=== PATIENT | male | born 1955 | race Caucasian/White ===

== ENCOUNTER 2019-01-18 16:56 | Inpatient (IN) | payer BC ==
[2019-01-18] MEDS ORDERED: Diltiazem 50 MG/10 ML SDV IVPUSH ONE (17:33)
[2019-01-18] MEDS ORDERED: Diltiazem 125 MG in Sodium Chloride 0.9% 100 ML IV SCH (17:45)
[2019-01-18] MEDS: Sodium Chloride 0.9% 10 ML Syringe FLUSH PRN (17:54)
--- NOTE | 2019-01-18 18:31 | EDM.PDOC ---
ED HPI GENERAL MEDICAL PROBLEM - General Chief Complaint: Cardiovascular Problem Stated Complaint: SOB CHEST PAIN AND SWELLING Time Seen by Provider: 01/18/19 17:04 Source of Information: Reports: Patient History Limitations: Reports: No Limitations - History of Present Illness INITIAL COMMENTS - FREE TEXT/NARRATIVE: The patient presents with shortness of breath, chest pain and atrial fibrillation. The patient said he noticed this start about 3 weeks ago. He has chest pain at times. He is short of breath with exertion and he has swelling in his legs. He went to the walk in clinic and they found he was in new onset A-fib and sent him down here. He is in A-fib with RVR in the 130s. He has no chest pain now. He has no fever, chills, cough, congestion, runny nose, abdominal pain, nausea or vomiting. He has no history of heart problems or atrial fibrillation. Onset: Gradual Duration: Week(s): (3) Location: Reports: Chest Quality: Reports: Ache Severity: Mild Improves with: Reports: None Worsens with: Reports: None Associated Symptoms: Reports: Chest Pain, Shortness of Breath. Denies: Cough, Fever/Chills, Headaches, Nausea/Vomiting Chest Pain Score (Numeric/FACES): 3 - Related Data Allergies Allergy/AdvReac Type Severity Reaction Status Date / Time lisinopril AdvReac Cough Verified 01/18/19 17:08 Home Meds: Home Meds Allopurinol [Zyloprim] 100 mg PO DAILY 01/18/19 [History] Furosemide 80 mg PO DAILY 01/18/19 [History] Indomethacin 50 mg PO DAILY 01/18/19 [History] Metoprolol Succinate 50 mg PO DAILY 01/18/19 [History] Spironolactone [Aldactone] 25 mg PO DAILY 01/18/19 [History] Past Medical History Cardiovascular History: Reports: Hypertension Respiratory History: Reports: Sleep Apnea Musculoskeletal History: Reports: Gout Social & Family History - Family History Family Medical History: Noncontributory - Caffeine Use Caffeine Use: Reports: Soda - Recreational Drug Use Recreational Drug Use: No ED ROS GENERAL - Review of Systems Review Of Systems: See Below Constitutional: Reports: No Symptoms HEENT: Reports: No Symptoms Respiratory: Reports: No Symptoms Cardiovascular: Reports: Chest Pain, Dyspnea on Exertion, Edema, Palpitations Endocrine: Reports: No Symptoms GI/Abdominal: Reports: No Symptoms : Reports: No Symptoms Musculoskeletal: Reports: No Symptoms ED EXAM, GENERAL - Physical Exam Exam: See Below Exam Limited By: No Limitations General Appearance: Alert, No Apparent Distress Ears: Normal External Exam Nose: Normal Inspection Head: Atraumatic, Normocephalic Neck: Normal Inspection Respiratory/Chest: No Respiratory Distress, Lungs Clear, Normal Breath Sounds Cardiovascular: No Edema, No Murmur, Irregularly Irregular GI/Abdominal: Soft, Non-Tender, No Organomegaly, No Mass Back Exam: Normal Inspection Extremities: Normal Inspection EKG INTERPRETATION EKG Date: 01/18/19 Time: 15:34 Rhythm: A-Fib Rate (Beats/Min): 110 [place]: Normal P-Wave: Absent QRS: Normal ST-T: Normal QT: Prolonged Course - Vital Signs Last Recorded V/S: Last Vital Signs Temp 98.4 F 01/18/19 17:05 Pulse 70 01/18/19 18:48 Resp 25 H 01/18/19 18:48 BP 115/70 01/18/19 18:48 Pulse Ox 96 01/18/19 18:48 - Orders/Labs/Meds Orders: Active Orders 24 hr Category Date Time Status Admission Status [Patient Status] [ADT] Routine ADT 01/18/19 18:57 Active Cardiac Monitoring [RC] . DIRECTED Care 01/18/19 17:31 Active Peripheral IV Care [RC] . DIRECTED Care 01/18/19 17:33 Active Chest 1V Frontal [CR] Stat Exams 01/18/19 17:33 Taken T4 FREE [CHEM] Stat Lab 01/18/19 19:28 Ordered Diltiazem 125 mg Med 01/18/19 17:45 Active Sodium Chloride 0.9% [Normal Saline] 100 ml IV TITRATE Sodium Chloride 0.9% [Saline Flush] Med 01/18/19 17:31 Active 10 ml FLUSH ASDIRECTED PRN Peripheral IV Insertion Adult [OM.PC] Stat Oth 01/18/19 17:31 Ordered Medication Orders Diltiazem HCl 125 mg/ Sodium (Chloride) 125 mls @ 10 mls/hr IV TITRATE HAL; Protocol Last Titration: 01/18/19 18:34 Dose: 5 mg/hr, 5 mls/hr Admin: 01/18/19 17:54 Dose: 10 mg/hr, 10 mls/hr Sodium Chloride (Saline Flush) 10 ml FLUSH ASDIRECTED PRN PRN Reason: Keep Vein Open Last Admin: 01/18/19 17:54 Dose: 10 ml Labs: Laboratory Tests 01/18/19 01/18/19 01/18/19 Range/Units 17:30 17:30 17:30 WBC 8.37 (4.23-9.07) K/mm3 RBC 4.07 L (4.63-6.08) M/mm3 Hgb 14.7 (13.7-17.5) gm/L Hct 43.0 (40.1-51.0) % MCV 105.7 H (79.0-92.2) fl MCH 36.1 H (25.7-32.2) pg MCHC 34.2 (32.2-35.5) g/dl RDW Std Deviation 49.4 H (35.1-43.9) fL Plt Count 214 (163-337) K/mm3 MPV 10.6 (9.4-12.3) fl Neut % (Auto) 63.7 (34.0-67.9) % Lymph % (Auto) 22.9 (21.8-53.1) % [place] % (Auto) 9.0 (5.3-12.2) % Eos % (Auto) 3.2 (0.8-7.0) Baso % (Auto) 0.8 (0.1-1.2) % Neut # (Auto) 5.33 (1.78-5.38) K/mm3 Lymph # (Auto) 1.92 (1.32-3.57) K/mm3 [place] # (Auto) 0.75 (0.30-0.82) K/mm3 Eos # (Auto) 0.27 (0.04-0.54) K/mm3 Baso # (Auto) 0.07 (0.01-0.08) K/mm3 Manual Slide Review Abnormal smear Sodium 139 (136-145) mEq/L Potassium 3.7 (3.5-5.1) mEq/L Chloride 102 (98-107) mEq/L Carbon Dioxide 26 (21-32) mEq/L Anion Gap 14.7 (5-15) BUN 14 (7-18) mg/dL Creatinine 1.0 (0.7-1.3) mg/dL Est Cr Clr Drug Dosing 82.62 mL/min Estimated GFR (MDRD) > 60 (>60) mL/min BUN/Creatinine Ratio 14.0 (14-18) Glucose 94 (80-115) mg/dL Calcium 9.2 (8.5-10.1) mg/dL Total Bilirubin 0.7 (0.2-1.0) mg/dL AST 47 H (15-37) U/L ALT 86 H (16-63) U/L Alkaline Phosphatase 112 (46-116) U/L Troponin I < 0.017 (0.00-0.056) ng/mL NT-Pro-B Natriuret Pep 452 H (0-125) pg/mL Total Protein 7.2 (6.4-8.2) g/dl Albumin 3.7 (3.4-5.0) g/dl Globulin 3.5 gm/dL Albumin/Globulin Ratio 1.1 (1-2) TSH 3rd Generation (0.358-3.74) uIU/mL 01/18/19 Range/Units 17:30 WBC (4.23-9.07) K/mm3 RBC (4.63-6.08) M/mm3 Hgb (13.7-17.5) gm/L Hct (40.1-51.0) % MCV (79.0-92.2) fl MCH (25.7-32.2) pg MCHC (32.2-35.5) g/dl RDW Std Deviation (35.1-43.9) fL Plt Count (163-337) K/mm3 MPV (9.4-12.3) fl Neut % (Auto) (34.0-67.9) % Lymph % (Auto) (21.8-53.1) % [place] % (Auto) (5.3-12.2) % Eos % (Auto) (0.8-7.0) Baso % (Auto) (0.1-1.2) % Neut # (Auto) (1.78-5.38) K/mm3 Lymph # (Auto) (1.32-3.57) K/mm3 [place] # (Auto) (0.30-0.82) K/mm3 Eos # (Auto) (0.04-0.54) K/mm3 Baso # (Auto) (0.01-0.08) K/mm3 Manual Slide Review Sodium (136-145) mEq/L Potassium (3.5-5.1) mEq/L Chloride (98-107) mEq/L Carbon Dioxide (21-32) mEq/L Anion Gap (5-15) BUN (7-18) mg/dL Creatinine (0.7-1.3) mg/dL Est Cr Clr Drug Dosing mL/min Estimated GFR (MDRD) (>60) mL/min BUN/Creatinine Ratio (14-18) Glucose (80-115) mg/dL Calcium (8.5-10.1) mg/dL Total Bilirubin (0.2-1.0) mg/dL AST (15-37) U/L ALT (16-63) U/L Alkaline Phosphatase (46-116) U/L Troponin I (0.00-0.056) ng/mL NT-Pro-B Natriuret Pep (0-125) pg/mL Total Protein (6.4-8.2) g/dl Albumin (3.4-5.0) g/dl Globulin gm/dL Albumin/Globulin Ratio (1-2) TSH 3rd Generation 5.209 H (0.358-3.74) uIU/mL Meds: Medications Generic Name Dose Route Start Last Admin Trade Name Freq PRN Reason Stop Dose Admin Diltiazem HCl 125 mg/ Sodium 125 mls @ 10 mls/hr 01/18/19 17:45 01/18/19 18: 34 Chloride IV 5 mg/hr TITRATE HAL 5 mls/hr Titration Protocol 10 MG/HR Sodium Chloride 10 ml 01/18/19 17:31 01/18/19 17:54 Saline Flush FLUSH 10 ml ASDIRECTED PRN Administration Keep Vein Open Discontinued Medications Generic Name Dose Route Start Last Admin Trade Name Freq PRN Reason Stop Dose Admin Diltiazem HCl 10 mg 01/18/19 17:33 01/18/19 17:51 Cardizem IVPUSH 01/18/19 17:34 10 mg ONETIME ONE Administration - Re-Assessments/Exams Free Text/Narrative Re-Assessment/Exam: 01/18/19 19:30 I ordered an IV saline lock, EKG, CXR, labs, cardizem bolus of 10mg and a drip at 10g/hr. His EKG shows atrial fibrillation at a rate of 110 and he will burst up to the 130s. His CXR shows cardiomegaly with no congestive changes. His CBC looks good. His AST was elevated at 47. His ALT was elevated at 86. His troponin was negative. His BNP was slightly elevated at 452. His blood pressure did drop into the 80s. His heart rate is better in the 80s and 90s. I had my nurse slow the drip down and then I had them shut if off. I will switch him to cardizem oral and give him some eliquis. 01/18/19 19:36 I feel he needs to be admitted. I have written orders. 01/18/19 19:37 His TSH was 5.2. I have ordered a free T4. Departure - Departure Time of Disposition: 19:40 Disposition: Admitted As Inpatient 68 Condition: Fair Clinical Impression: Atrial fibrillation with RVR, Dyspnea on exertion, Peripheral edema Referrals: Pop Pittman PA-C [Primary Care Provider] - Forms: ED Department Discharge - My Orders Last 24 Hours: My Active Orders 01/18/19 17:31 Cardiac Monitoring [RC] . DIRECTED Sodium Chloride 0.9% [Saline Flush] 10 ml FLUSH ASDIRECTED PRN Peripheral IV Insertion Adult [OM.PC] Stat 01/18/19 17:33 Peripheral IV Care [RC] . DIRECTED Chest 1V Frontal [CR] Stat 01/18/19 17:45 Diltiazem 125 mg Sodium Chloride 0.9% [Normal Saline] 100 ml IV TITRATE 01/18/19 18:57 Admission Status [Patient Status] [ADT] Routine 01/18/19 19:28 T4 FREE [CHEM] Stat - Assessment/Plan Last 24 Hours: My Active Orders 01/18/19 17:31 Cardiac Monitoring [RC] . DIRECTED Sodium Chloride 0.9% [Saline Flush] 10 ml FLUSH ASDIRECTED PRN Peripheral IV Insertion Adult [OM.PC] Stat 01/18/19 17:33 Peripheral IV Care [RC] . DIRECTED Chest 1V Frontal [CR] Stat 01/18/19 17:45 Diltiazem 125 mg Sodium Chloride 0.9% [Normal Saline] 100 ml IV TITRATE 01/18/19 18:57 Admission Status [Patient Status] [ADT] Routine 01/18/19 19:28 T4 FREE [CHEM] Stat
[2019-01-18] MEDS ORDERED: Apixaban 5 MG Tab PO ONE (19:35)
[2019-01-18] MEDS ORDERED: Diltiazem IR 60 MG Tab PO ONE (19:35)
[2019-01-18] MEDS ORDERED: Acetaminophen 325 MG Tab PO PRN (19:40)
[2019-01-18] MEDS ORDERED: Diltiazem 180 MG Cap.CD PO ONE (19:44)
--- NOTE | 2019-01-18 19:50 | PCM.HP ---
H&P History of Present Illness - General Date of Service: 01/18/19 Admit Problem/Dx: Admission Diagnosis/Problem Admission Diagnosis/Problem Atrial fibrillation Source of Information: Patient History Limitations: Reports: No Limitations - History of Present Illness Initial Comments - Free Text/Narative: The patient presented to the clinic with shortness of breath, chest pain and swelling for the past 3 weeks. An EKG was done and it showed Atrial fibrillation. He was sent down to the ER and was seen by me. He had intermittent chest pain and shortness of breath with exertion. He has no history of this and no history of heart disease. He does have a history of hypertension. He was in a RVR and given a cardizem bolus and drip. His heart rate slowed down into the 80s and 90s. His blood pressure did drop so the drip was stopped and he was given cardizem 60mg PO and eliquis. He was then admitted to the hospitalist service under me. Onset of Symptoms: Reports: Gradual Duration of Symptoms: Reports: Week(s): (3) Location: Reports: Chest Quality: Reports: Pressure Severity: Mild Improves with: Reports: None Worsens with: Reports: None Associated Symptoms: Reports: Chest Pain, Shortness of Breath. Denies: Cough, Fever/Chills Chest Pain Score (Numeric/FACES): 3 - Related Data Allergies/Adverse Reactions: Allergies Allergy/AdvReac Type Severity Reaction Status Date / Time lisinopril AdvReac Cough Verified 01/18/19 20:18 Home Medications: Home Meds Allopurinol [Zyloprim] 100 mg PO DAILY 01/18/19 [History] Furosemide 80 mg PO DAILY 01/18/19 [History] Spironolactone [Aldactone] 25 mg PO DAILY 01/18/19 [History] Apixaban [Eliquis] 5 mg PO BID #30 tablet 01/20/19 [Rx] Diltiazem [Cardizem CD] 240 mg PO DAILY #40 cap.cd 01/20/19 [Rx] Ibuprofen [Motrin] 600 mg PO BIDM #60 tab 01/20/19 [Rx] Metoprolol Tartrate [Lopressor] 25 mg PO Q12H #40 tablet 01/20/19 [Rx] Past Medical History Cardiovascular History: Reports: Hypertension Respiratory History: Reports: Sleep Apnea Musculoskeletal History: Reports: Gout Social & Family History - Family History Family Medical History: Noncontributory - Caffeine Use Caffeine Use: Reports: Soda - Recreational Drug Use Recreational Drug Use: No H&P Review of Systems - Review of Systems: Review Of Systems: See Below General: Reports: No Symptoms HEENT: Reports: No Symptoms Pulmonary: Reports: Shortness of Breath Cardiovascular: Reports: Chest Pain, Edema Gastrointestinal: Reports: No Symptoms Genitourinary: Reports: No Symptoms Musculoskeletal: Reports: No Symptoms Skin: Reports: No Symptoms Exam - Exam Exam: See Below - Vital Signs Vital Signs: Last Vital Signs Temp 98.4 F 01/18/19 17:05 Pulse 70 01/18/19 18:48 Resp 25 H 01/18/19 18:48 BP 115/70 01/18/19 18:48 Pulse Ox 96 01/18/19 18:48 Weight: 195.045 kg - Exam Quality Assessment: No: Supplemental Oxygen General: Alert, Oriented HEENT: Conjunctiva Clear, EOMI, Hearing Intact Neck: Supple, Trachea Midline Lungs: Clear to Auscultation, Normal Respiratory Effort Cardiovascular: Irregular Rhythm, Tachycardia. No: Systolic Murmur, Diastolic Murmur GI/Abdominal Exam: Soft, Non-Tender, No Organomegaly Back Exam: Normal Inspection Extremities: Other (Edema in both legs) Neuro Extensive - Mental Status: Alert, Oriented x3 - Patient Data Lab Results Last 24 hrs: Laboratory Results - last 24 hr 01/18/19 01/18/19 01/18/19 Range/Units 17:30 17:30 17:30 WBC 8.37 (4.23-9.07) K/mm3 RBC 4.07 L (4.63-6.08) M/mm3 Hgb 14.7 (13.7-17.5) gm/L Hct 43.0 (40.1-51.0) % MCV 105.7 H (79.0-92.2) fl MCH 36.1 H (25.7-32.2) pg MCHC 34.2 (32.2-35.5) g/dl RDW Std Deviation 49.4 H (35.1-43.9) fL Plt Count 214 (163-337) K/mm3 MPV 10.6 (9.4-12.3) fl Neut % (Auto) 63.7 (34.0-67.9) % Lymph % (Auto) 22.9 (21.8-53.1) % [place] % (Auto) 9.0 (5.3-12.2) % Eos % (Auto) 3.2 (0.8-7.0) Baso % (Auto) 0.8 (0.1-1.2) % Neut # (Auto) 5.33 (1.78-5.38) K/mm3 Lymph # (Auto) 1.92 (1.32-3.57) K/mm3 [place] # (Auto) 0.75 (0.30-0.82) K/mm3 Eos # (Auto) 0.27 (0.04-0.54) K/mm3 Baso # (Auto) 0.07 (0.01-0.08) K/mm3 Manual Slide Review Abnormal smear Sodium 139 (136-145) mEq/L Potassium 3.7 (3.5-5.1) mEq/L Chloride 102 (98-107) mEq/L Carbon Dioxide 26 (21-32) mEq/L Anion Gap 14.7 (5-15) BUN 14 (7-18) mg/dL Creatinine 1.0 (0.7-1.3) mg/dL Est Cr Clr Drug Dosing 82.62 mL/min Estimated GFR (MDRD) > 60 (>60) mL/min BUN/Creatinine Ratio 14.0 (14-18) Glucose 94 (80-115) mg/dL Calcium 9.2 (8.5-10.1) mg/dL Total Bilirubin 0.7 (0.2-1.0) mg/dL AST 47 H (15-37) U/L ALT 86 H (16-63) U/L Alkaline Phosphatase 112 (46-116) U/L Troponin I < 0.017 (0.00-0.056) ng/mL NT-Pro-B Natriuret Pep 452 H (0-125) pg/mL Total Protein 7.2 (6.4-8.2) g/dl Albumin 3.7 (3.4-5.0) g/dl Globulin 3.5 gm/dL Albumin/Globulin Ratio 1.1 (1-2) TSH 3rd Generation (0.358-3.74) uIU/mL 01/18/19 Range/Units 17:30 WBC (4.23-9.07) K/mm3 RBC (4.63-6.08) M/mm3 Hgb (13.7-17.5) gm/L Hct (40.1-51.0) % MCV (79.0-92.2) fl MCH (25.7-32.2) pg MCHC (32.2-35.5) g/dl RDW Std Deviation (35.1-43.9) fL Plt Count (163-337) K/mm3 MPV (9.4-12.3) fl Neut % (Auto) (34.0-67.9) % Lymph % (Auto) (21.8-53.1) % [place] % (Auto) (5.3-12.2) % Eos % (Auto) (0.8-7.0) Baso % (Auto) (0.1-1.2) % Neut # (Auto) (1.78-5.38) K/mm3 Lymph # (Auto) (1.32-3.57) K/mm3 [place] # (Auto) (0.30-0.82) K/mm3 Eos # (Auto) (0.04-0.54) K/mm3 Baso # (Auto) (0.01-0.08) K/mm3 Manual Slide Review Sodium (136-145) mEq/L Potassium (3.5-5.1) mEq/L Chloride (98-107) mEq/L Carbon Dioxide (21-32) mEq/L Anion Gap (5-15) BUN (7-18) mg/dL Creatinine (0.7-1.3) mg/dL Est Cr Clr Drug Dosing mL/min Estimated GFR (MDRD) (>60) mL/min BUN/Creatinine Ratio (14-18) Glucose (80-115) mg/dL Calcium (8.5-10.1) mg/dL Total Bilirubin (0.2-1.0) mg/dL AST (15-37) U/L ALT (16-63) U/L Alkaline Phosphatase (46-116) U/L Troponin I (0.00-0.056) ng/mL NT-Pro-B Natriuret Pep (0-125) pg/mL Total Protein (6.4-8.2) g/dl Albumin (3.4-5.0) g/dl Globulin gm/dL Albumin/Globulin Ratio (1-2) TSH 3rd Generation 5.209 H (0.358-3.74) uIU/mL Result Diagrams: 01/18/19 17:30 01/20/19 04:15 EKG INTERPRETATION EKG Date: 01/18/19 Time: 15:34 Rhythm: A-Fib Rate (Beats/Min): 110 [place]: Normal QRS: Normal ST-T: Normal QT: Prolonged - Problem List (1) Atrial fibrillation with RVR SNOMED Code(s): 240327202886744 ICD Code: I48.91 - UNSPECIFIED ATRIAL FIBRILLATION Status: Resolved Priority: High Problem Details: Switched to oral cardizem and will restart if needed through the night. (2) Dyspnea on exertion SNOMED Code(s): 61265220 ICD Code: R06.09 - OTHER FORMS OF DYSPNEA Status: Resolved Problem Details: Dyspnea related to rate and hopefully will reslove with rate control (3) Peripheral edema SNOMED Code(s): 474194501 ICD Code: R60.9 - EDEMA, UNSPECIFIED Status: Acute Problem Details: Edema should resolve with rate control Problem List Initiated/Reviewed/Updated: Yes Orders Last 24hrs: Active Orders 24 hr Category Date Time Status Patient Status [ADT] Routine ADT 01/18/19 19:40 Ordered Bedrest Bathroom Privileges [RC] ASDIRECTED Care 01/18/19 19:40 Ordered Cardiac Monitoring [RC] . DIRECTED Care 01/18/19 17:31 Active Height and Weight [RC] DAILY Care 01/18/19 19:40 Ordered Peripheral IV Care [RC] . DIRECTED Care 01/18/19 17:33 Active Vital Signs [RC] Q4H Care 01/18/19 19:40 Ordered Heart Healthy Diet [DIET] Diet 01/19/19 Breakfast Ordered Chest 1V Frontal [CR] Stat Exams 01/18/19 17:33 Taken T4 FREE [CHEM] Stat Lab 01/18/19 19:28 Ordered Acetaminophen [Tylenol] Med 01/18/19 19:40 Ordered 650 mg PO Q4H PRN Apixaban [Eliquis] Med 01/19/19 07:00 Ordered 5 mg PO BID Diltiazem 125 mg Med 01/18/19 17:45 Active Sodium Chloride 0.9% [Normal Saline] 100 ml IV TITRATE Diltiazem [Cardizem CD] Med 01/18/19 19:44 Once 180 mg PO ONETIME ONE Sodium Chloride 0.9% [Saline Flush] Med 01/18/19 17:31 Active 10 ml FLUSH ASDIRECTED PRN Peripheral IV Insertion Adult [OM.PC] Stat Oth 01/18/19 17:31 Ordered Medication Orders Acetaminophen (Tylenol) 650 mg PO Q4H PRN PRN Reason: analgesia/fever Apixaban (Eliquis) 5 mg PO BID HAL Diltiazem HCl (Cardizem Cd) 180 mg PO ONETIME ONE Stop: 01/18/19 19:45 Diltiazem HCl 125 mg/ Sodium (Chloride) 125 mls @ 10 mls/hr IV TITRATE HAL; Protocol Last Titration: 01/18/19 18:34 Dose: 5 mg/hr, 5 mls/hr Admin: 01/18/19 17:54 Dose: 10 mg/hr, 10 mls/hr Sodium Chloride (Saline Flush) 10 ml FLUSH ASDIRECTED PRN PRN Reason: Keep Vein Open Last Admin: 01/18/19 17:54 Dose: 10 ml
[2019-01-19] MEDS ORDERED: Diltiazem 180 MG Cap.CD PO ONE (06:00)
[2019-01-19] MEDS: Apixaban 5 MG Tab PO SCH ×3 (06:26→20:23)
--- NOTE | 2019-01-19 07:23 | CR ---
Chest: Portable view of the chest was obtained. Comparison: No prior chest x-ray. Study less than optimal secondary to body habitus. Questionable increased density within the right base. Lungs otherwise are grossly clear. Heart is slightly enlarged. Upper mediastinum is normal. Bony structures are grossly intact. Impression: 1. Less than optimal chest x-ray. 2. Questionable increased density within the right lung base most likely representing atelectasis if patient has no infectious symptoms. 3. Cardiomegaly possibly related to patient body habitus. Diagnostic code #3
[2019-01-19] MEDS: Allopurinol 100 MG Tab PO SCH (09:20)
[2019-01-19] MEDS: Metoprolol Tartrate 25 MG Tab PO SCH ×2 (09:21→20:23)
[2019-01-19] MEDS: Indomethacin 25 MG Cap PO SCH (09:21)
[2019-01-19] MEDS ORDERED: Magnesium Oxide 400 MG Tab PO ONE (11:19)
--- NOTE | 2019-01-19 16:22 | PCM.PN ---
<Jhon Cui - Last Filed: 01/19/19 16:46> - General Info Date of Service: 01/19/19 Admission Dx/Problem (Free Text): Admission Diagnosis/Problem Admission Diagnosis/Problem Atrial fibrillation Subjective Update: 01/19/19: In to see Kahlil. He has been up ambulating. HR increased to 120-130s today with ambulation. Will resume half dose of BB. Otherwise he remains asymptomatic, however he is still in A-fib. Nikolai is discussed with the patient, who agrees to continuation. Echo was attempted to be obtained however due to timing and weekend it will not be available until Tuesday. May need to follow-up with as outpatient. Labs remain stable. Functional Status: Reports: Pain Controlled, Tolerating Diet, Ambulating, Urinating. Denies: New Symptoms - Review of Systems General: Reports: No Symptoms, Other (obese ). Denies: Fever, Weakness, Fatigue , Malaise, Chills HEENT: Reports: No Symptoms. Denies: Headaches, Sore Throat Pulmonary: Reports: No Symptoms. Denies: Shortness of Breath, Pleuritic Chest Pain, Cough, Sputum, Wheezing Cardiovascular: Reports: Edema. Denies: Chest Pain, Palpitations, Dyspnea on Exertion, Lightheadedness Gastrointestinal: Reports: No Symptoms. Denies: Abdominal Pain, Constipation, Diarrhea, Nausea, Vomiting Genitourinary: Reports: No Symptoms. Denies: Pain Musculoskeletal: Reports: No Symptoms Skin: Reports: No Symptoms. Denies: Cyanosis Neurological: Reports: No Symptoms. Denies: Confusion, Difficulty Walking, Gait Disturbance Psychiatric: Reports: No Symptoms - Patient Data Vitals - Most Recent: Last Vital Signs Temp 97.0 F 01/19/19 11:35 Pulse 93 01/19/19 09:21 Resp 19 01/19/19 11:35 BP 108/72 01/19/19 11:35 Pulse Ox 93 L 01/19/19 11:35 Weight - Most Recent: 194.138 kg I&O - Last 24 Hours: Intake & Output 01/19/19 01/19/19 01/19/19 06:59 14:59 22:59 Intake Total 600 120 320 Output Total 300 Balance 300 120 320 Lab Results Last 24 Hours: Laboratory Results - last 24 hr 01/18/19 01/18/19 01/18/19 Range/Units 17:30 17:30 17:30 WBC 8.37 (4.23-9.07) K/mm3 RBC 4.07 L (4.63-6.08) M/mm3 Hgb 14.7 (13.7-17.5) gm/L Hct 43.0 (40.1-51.0) % MCV 105.7 H (79.0-92.2) fl MCH 36.1 H (25.7-32.2) pg MCHC 34.2 (32.2-35.5) g/dl RDW Std Deviation 49.4 H (35.1-43.9) fL Plt Count 214 (163-337) K/mm3 MPV 10.6 (9.4-12.3) fl Neut % (Auto) 63.7 (34.0-67.9) % Lymph % (Auto) 22.9 (21.8-53.1) % [place] % (Auto) 9.0 (5.3-12.2) % Eos % (Auto) 3.2 (0.8-7.0) Baso % (Auto) 0.8 (0.1-1.2) % Neut # (Auto) 5.33 (1.78-5.38) K/mm3 Lymph # (Auto) 1.92 (1.32-3.57) K/mm3 [place] # (Auto) 0.75 (0.30-0.82) K/mm3 Eos # (Auto) 0.27 (0.04-0.54) K/mm3 Baso # (Auto) 0.07 (0.01-0.08) K/mm3 Manual Slide Review Abnormal smear Sodium 139 (136-145) mEq/L Potassium 3.7 (3.5-5.1) mEq/L Chloride 102 (98-107) mEq/L Carbon Dioxide 26 (21-32) mEq/L Anion Gap 14.7 (5-15) BUN 14 (7-18) mg/dL Creatinine 1.0 (0.7-1.3) mg/dL Est Cr Clr Drug Dosing 82.62 mL/min Estimated GFR (MDRD) > 60 (>60) mL/min BUN/Creatinine Ratio 14.0 (14-18) Glucose 94 (80-115) mg/dL Calcium 9.2 (8.5-10.1) mg/dL Magnesium (1.8-2.4) mg/dl Total Bilirubin 0.7 (0.2-1.0) mg/dL AST 47 H (15-37) U/L ALT 86 H (16-63) U/L Alkaline Phosphatase 112 (46-116) U/L Troponin I < 0.017 (0.00-0.056) ng/mL NT-Pro-B Natriuret Pep 452 H (0-125) pg/mL Total Protein 7.2 (6.4-8.2) g/dl Albumin 3.7 (3.4-5.0) g/dl Globulin 3.5 gm/dL Albumin/Globulin Ratio 1.1 (1-2) Free T4 (0.76-1.46) ng/dL TSH 3rd Generation (0.358-3.74) uIU/mL 01/18/19 01/18/19 01/18/19 Range/Units 17:30 17:30 17:30 WBC (4.23-9.07) K/mm3 RBC (4.63-6.08) M/mm3 Hgb (13.7-17.5) gm/L Hct (40.1-51.0) % MCV (79.0-92.2) fl MCH (25.7-32.2) pg MCHC (32.2-35.5) g/dl RDW Std Deviation (35.1-43.9) fL Plt Count (163-337) K/mm3 MPV (9.4-12.3) fl Neut % (Auto) (34.0-67.9) % Lymph % (Auto) (21.8-53.1) % [place] % (Auto) (5.3-12.2) % Eos % (Auto) (0.8-7.0) Baso % (Auto) (0.1-1.2) % Neut # (Auto) (1.78-5.38) K/mm3 Lymph # (Auto) (1.32-3.57) K/mm3 [place] # (Auto) (0.30-0.82) K/mm3 Eos # (Auto) (0.04-0.54) K/mm3 Baso # (Auto) (0.01-0.08) K/mm3 Manual Slide Review Sodium (136-145) mEq/L Potassium (3.5-5.1) mEq/L Chloride (98-107) mEq/L Carbon Dioxide (21-32) mEq/L Anion Gap (5-15) BUN (7-18) mg/dL Creatinine (0.7-1.3) mg/dL Est Cr Clr Drug Dosing mL/min Estimated GFR (MDRD) (>60) mL/min BUN/Creatinine Ratio (14-18) Glucose (80-115) mg/dL Calcium (8.5-10.1) mg/dL Magnesium 1.8 (1.8-2.4) mg/dl Total Bilirubin (0.2-1.0) mg/dL AST (15-37) U/L ALT (16-63) U/L Alkaline Phosphatase (46-116) U/L Troponin I (0.00-0.056) ng/mL NT-Pro-B Natriuret Pep (0-125) pg/mL Total Protein (6.4-8.2) g/dl Albumin (3.4-5.0) g/dl Globulin gm/dL Albumin/Globulin Ratio (1-2) Free T4 0.92 (0.76-1.46) ng/dL TSH 3rd Generation 5.209 H (0.358-3.74) uIU/mL 01/19/19 Range/Units 07:09 WBC (4.23-9.07) K/mm3 RBC (4.63-6.08) M/mm3 Hgb (13.7-17.5) gm/L Hct (40.1-51.0) % MCV (79.0-92.2) fl MCH (25.7-32.2) pg MCHC (32.2-35.5) g/dl RDW Std Deviation (35.1-43.9) fL Plt Count (163-337) K/mm3 MPV (9.4-12.3) fl Neut % (Auto) (34.0-67.9) % Lymph % (Auto) (21.8-53.1) % [place] % (Auto) (5.3-12.2) % Eos % (Auto) (0.8-7.0) Baso % (Auto) (0.1-1.2) % Neut # (Auto) (1.78-5.38) K/mm3 Lymph # (Auto) (1.32-3.57) K/mm3 [place] # (Auto) (0.30-0.82) K/mm3 Eos # (Auto) (0.04-0.54) K/mm3 Baso # (Auto) (0.01-0.08) K/mm3 Manual Slide Review Sodium 139 (136-145) mEq/L Potassium 4.0 (3.5-5.1) mEq/L Chloride 103 (98-107) mEq/L Carbon Dioxide 26 (21-32) mEq/L Anion Gap 14.0 (5-15) BUN 13 (7-18) mg/dL Creatinine 1.0 (0.7-1.3) mg/dL Est Cr Clr Drug Dosing 82.62 mL/min Estimated GFR (MDRD) > 60 (>60) mL/min BUN/Creatinine Ratio 13.0 L (14-18) Glucose 136 H (80-115) mg/dL Calcium 8.8 (8.5-10.1) mg/dL Magnesium 1.8 (1.8-2.4) mg/dl Total Bilirubin (0.2-1.0) mg/dL AST (15-37) U/L ALT (16-63) U/L Alkaline Phosphatase (46-116) U/L Troponin I (0.00-0.056) ng/mL NT-Pro-B Natriuret Pep (0-125) pg/mL Total Protein (6.4-8.2) g/dl Albumin (3.4-5.0) g/dl Globulin gm/dL Albumin/Globulin Ratio (1-2) Free T4 (0.76-1.46) ng/dL TSH 3rd Generation (0.358-3.74) uIU/mL Med Orders - Current: Current Medications Acetaminophen (Tylenol) 650 mg PO Q4H PRN PRN Reason: analgesia/fever Allopurinol (Zyloprim) 100 mg PO DAILY [facility] Last Admin: 01/19/19 09:20 Dose: 100 mg Apixaban (Eliquis) 5 mg PO BID [facility] Last Admin: 01/19/19 09:23 Dose: 5 mg Diltiazem HCl (Cardizem Cd) 180 mg PO DAILY [facility] Diltiazem HCl 125 mg/ Sodium (Chloride) 125 mls @ 10 mls/hr IV TITRATE HAL; Protocol Last Titration: 01/18/19 18:34 Dose: 5 mg/hr, 5 mls/hr Indomethacin (Indocin) 50 mg PO DAILY [facility] Last Admin: 01/19/19 09:21 Dose: 50 mg Metoprolol Tartrate (Lopressor) 25 mg PO Q12H [facility] Last Admin: 01/19/19 09:21 Dose: 25 mg Sodium Chloride (Saline Flush) 10 ml FLUSH ASDIRECTED PRN PRN Reason: Keep Vein Open Last Admin: 01/18/19 17:54 Dose: 10 ml Discontinued Medications Apixaban (Eliquis) 5 mg PO ONETIME ONE Stop: 01/18/19 19:36 Last Admin: 01/18/19 21:00 Dose: 5 mg Diltiazem HCl (Cardizem) 10 mg IVPUSH ONETIME ONE Stop: 01/18/19 17:34 Last Admin: 01/18/19 17:51 Dose: 10 mg Diltiazem HCl (Cardizem) 60 mg PO ONETIME ONE Stop: 01/18/19 19:36 Last Admin: 01/18/19 19:45 Dose: 60 mg Diltiazem HCl (Cardizem Cd) 180 mg PO ONETIME ONE Stop: 01/19/19 06:01 Last Admin: 01/19/19 06:26 Dose: 180 mg Magnesium Oxide (Magnesium Oxide) 400 mg PO ONETIME ONE Stop: 01/19/19 11:20 Last Admin: 01/19/19 11:40 Dose: 400 mg - Exam Quality Assessment: DVT Prophylaxis General: Alert, Oriented, Cooperative, No Acute Distress HEENT: Pupils Equal, Pupils Reactive, EOMI, Mucous Membr. Moist/[place] Neck: Supple, Trachea Midline, No JVD Lungs: Clear to Auscultation, Normal Respiratory Effort Cardiovascular: Regular Rate, Irregular Rhythm GI/Abdominal Exam: Normal Bowel Sounds, Soft, Non-Tender, No Distention, No Abnormal Bruit (Male) Exam: Deferred Back Exam: Normal Inspection, Full Range of Motion Extremities: Normal Inspection, Normal Range of Motion, Non-Tender, Normal Capillary Refill, Pedal Edema Peripheral Pulses: 1+: Dorsalis Pedis (L), Dorsalis Pedis (R), 2+: Radial (L), Radial (R) Skin: Warm, Dry, Intact Neurological: No New Focal Deficit Psy/Mental Status: Alert, Normal Affect, Normal Mood - Problem List & Annotations (1) Atrial fibrillation with RVR SNOMED Code(s): 197909062733047 Code(s): I48.91 - UNSPECIFIED ATRIAL FIBRILLATION Status: Resolved Priority: High Current Visit: Yes Annotation/Comment:: Switched to oral cardizem and will restart if needed through the night. (2) Dyspnea on exertion SNOMED Code(s): 95707591 Code(s): R06.09 - OTHER FORMS OF DYSPNEA Status: Resolved Current Visit: Yes Annotation/Comment:: Dyspnea related to rate and hopefully will reslove with rate control (3) Peripheral edema SNOMED Code(s): 405091813 Code(s): R60.9 - EDEMA, UNSPECIFIED Status: Acute Current Visit: Yes Annotation/Comment:: Edema should resolve with rate control (4) New onset a-fib SNOMED Code(s): 55368139 Code(s): I48.91 - UNSPECIFIED ATRIAL FIBRILLATION Status: Acute Priority : High Current Visit: Yes (5) Subclinical hypothyroidism SNOMED Code(s): 45800640 Code(s): E03.9 - HYPOTHYROIDISM, UNSPECIFIED Status: Acute Priority: Medium Current Visit: Yes - Problem List Review Problem List Initiated/Reviewed/Updated: Yes - My Orders Last 24 Hours: My Active Orders 01/19/19 09:00 Allopurinol [Zyloprim] 100 mg PO DAILY Indomethacin [Indocin] 50 mg PO DAILY Metoprolol Tartrate [Lopressor] 25 mg PO Q12H 01/19/19 10:11 Up With Assistance [] ASDIRECTED 01/19/19 10:21 Code Status [Resuscitation Status] Routine 01/19/19 13:10 Patient Status [ADT] Routine 01/19/19 15:49 Echo Comp wo Cont [US] Routine 01/20/19 09:00 Diltiazem [Cardizem CD] 180 mg PO DAILY - Plan Plan:: I/P: Acute: New onset A-fib with RVR -Reports onset about 3 weeks prior. -Cardizem drip started in ED with Resolution of RVR; remains in A-fib -No history of A-fib -Converted to PO cardizem -Resume home BB at 1/2 dose -Magnesium 1.8 -No signs of infection; no recent sick contacts -gambling monitor -Ambulate -[id number] score of 2 - "moderate-high and should otherwise be an anticoagulation candidate" -Started on Eliquis BID -Pro-BNP 542 -Attempted to obtain echo but unable due to weekend. Suggest outpatient echo. Subclinical hypothyroidism -TSH 5.209 -T4 0.92 -PCP to monitor Chronic: HTN Pedal edema Gout Sleep Apnea with home CPAP use Plan: Admit to ICU -> downgraded to MSP status Home medications as ordered Other orders as indicated above Routine AM labs No need for PT/OT currently DVT prophylaxis: Eliquis Code status: Full code; PCP: Pop Pittman PA-C <Sammy Yu E - Last Filed: 01/19/19 18:31> - Patient Data Vitals - Most Recent: Last Vital Signs Temp 36.3 C 01/19/19 16:00 Pulse 80 01/19/19 16:00 Resp 20 01/19/19 16:00 BP 128/87 01/19/19 16:00 Pulse Ox 97 01/19/19 16:00 I&O - Last 24 Hours: Intake & Output 01/19/19 01/19/19 01/19/19 06:59 14:59 22:59 Intake Total 948 246 4285 Output Total 300 Balance 047 499 7424 Lab Results Last 24 Hours: Laboratory Results - last 24 hr 01/18/19 01/18/19 01/18/19 Range/Units 17:30 17:30 17:30 Sodium (136-145) mEq/L Potassium (3.5-5.1) mEq/L Chloride (98-107) mEq/L Carbon Dioxide (21-32) mEq/L Anion Gap (5-15) BUN (7-18) mg/dL Creatinine (0.7-1.3) mg/dL Est Cr Clr Drug Dosing mL/min Estimated GFR (MDRD) (>60) mL/min BUN/Creatinine Ratio (14-18) Glucose (80-115) mg/dL Calcium (8.5-10.1) mg/dL Magnesium 1.8 (1.8-2.4) mg/dl Free T4 0.92 (0.76-1.46) ng/dL TSH 3rd Generation 5.209 H (0.358-3.74) uIU/mL 01/19/19 Range/Units 07:09 Sodium 139 (136-145) mEq/L Potassium 4.0 (3.5-5.1) mEq/L Chloride 103 (98-107) mEq/L Carbon Dioxide 26 (21-32) mEq/L Anion Gap 14.0 (5-15) BUN 13 (7-18) mg/dL Creatinine 1.0 (0.7-1.3) mg/dL Est Cr Clr Drug Dosing 82.62 mL/min Estimated GFR (MDRD) > 60 (>60) mL/min BUN/Creatinine Ratio 13.0 L (14-18) Glucose 136 H (80-115) mg/dL Calcium 8.8 (8.5-10.1) mg/dL Magnesium 1.8 (1.8-2.4) mg/dl Free T4 (0.76-1.46) ng/dL TSH 3rd Generation (0.358-3.74) uIU/mL Med Orders - Current: Current Medications Acetaminophen (Tylenol) 650 mg PO Q4H PRN PRN Reason: analgesia/fever Allopurinol (Zyloprim) 100 mg PO DAILY [facility] Last Admin: 01/19/19 09:20 Dose: 100 mg Apixaban (Eliquis) 5 mg PO BID [facility] Last Admin: 01/19/19 09:23 Dose: 5 mg Diltiazem HCl (Cardizem Cd) 180 mg PO DAILY [facility] Diltiazem HCl 125 mg/ Sodium (Chloride) 125 mls @ 10 mls/hr IV TITRATE [facility]; Protocol Last Titration: 01/18/19 18:34 Dose: 5 mg/hr, 5 mls/hr Indomethacin (Indocin) 50 mg PO DAILY [facility] Last Admin: 01/19/19 09:21 Dose: 50 mg Metoprolol Tartrate (Lopressor) 25 mg PO Q12H [facility] Last Admin: 01/19/19 09:21 Dose: 25 mg Sodium Chloride (Saline Flush) 10 ml FLUSH ASDIRECTED PRN PRN Reason: Keep Vein Open Last Admin: 01/18/19 17:54 Dose: 10 ml Discontinued Medications Apixaban (Eliquis) 5 mg PO ONETIME ONE Stop: 01/18/19 19:36 Last Admin: 01/18/19 21:00 Dose: 5 mg Diltiazem HCl (Cardizem) 10 mg IVPUSH ONETIME ONE Stop: 01/18/19 17:34 Last Admin: 01/18/19 17:51 Dose: 10 mg Diltiazem HCl (Cardizem) 60 mg PO ONETIME ONE Stop: 01/18/19 19:36 Last Admin: 01/18/19 19:45 Dose: 60 mg Diltiazem HCl (Cardizem Cd) 180 mg PO ONETIME ONE Stop: 01/19/19 06:01 Last Admin: 01/19/19 06:26 Dose: 180 mg Magnesium Oxide (Magnesium Oxide) 400 mg PO ONETIME ONE Stop: 01/19/19 11:20 Last Admin: 01/19/19 11:40 Dose: 400 mg - Assessment Assessment:: if on indomethacin at home should discontinue with elevated bnp and edema . motrin/aleive would be preferred / k still low mg recheck boh
[2019-01-19] MEDS: Sodium Chloride 0.9% 10 ML Syringe FLUSH PRN (20:24)
[2019-01-20] MEDS: Indomethacin 25 MG Cap PO SCH (08:46)
[2019-01-20] MEDS: Allopurinol 100 MG Tab PO SCH (08:46)
[2019-01-20] MEDS: Apixaban 5 MG Tab PO SCH (08:46)
[2019-01-20] MEDS: Metoprolol Tartrate 25 MG Tab PO SCH (08:47)
[2019-01-20] MEDS ORDERED: Diltiazem 120 MG Cap.CD PO SCH (09:00)
[2019-01-20] MEDS ORDERED: Diltiazem 180 MG Cap.CD PO SCH (09:00)
[2019-01-20] MEDS ORDERED: Spironolactone 25 MG Tab PO SCH (12:30)
--- NOTE | 2019-01-20 12:58 | PCM.DCSUM1 ---
Discharge Summary - Hospital Course HPI Initial Comments: The patient presented to the clinic with shortness of breath, chest pain and swelling for the past 3 weeks. An EKG was done and it showed Atrial fibrillation. He was sent down to the ER and was seen by me. He had intermittent chest pain and shortness of breath with exertion. He has no history of this and no history of heart disease. He does have a history of hypertension. He was in a RVR and given a cardizem bolus and drip. His heart rate slowed down into the 80s and 90s. His blood pressure did drop so the drip was stopped and he was given cardizem 60mg PO and eliquis. He was then admitted to the hospitalist service under me. Diagnosis: Stroke: No - Discharge Data Discharge Date: 01/20/19 (Admit date: 01/18/19) Discharge Disposition: Home, Self-Care 01 Condition: Good - Discharge Diagnosis/Problem(s) (1) Atrial fibrillation with RVR SNOMED Code(s): 213878883943917 ICD Code: I48.91 - UNSPECIFIED ATRIAL FIBRILLATION Status: Resolved Priority: High Problem Details: Switched to oral cardizem and will restart if needed through the night. (2) Dyspnea on exertion SNOMED Code(s): 77948242 ICD Code: R06.09 - OTHER FORMS OF DYSPNEA Status: Resolved Problem Details: Dyspnea related to rate and hopefully will reslove with rate control (3) Peripheral edema SNOMED Code(s): 900291000 ICD Code: R60.9 - EDEMA, UNSPECIFIED Status: Acute Problem Details: Edema should resolve with rate control (4) New onset a-fib SNOMED Code(s): 66941105 ICD Code: I48.91 - UNSPECIFIED ATRIAL FIBRILLATION Status: Acute Priority : High (5) Subclinical hypothyroidism SNOMED Code(s): 16979264 ICD Code: E03.9 - HYPOTHYROIDISM, UNSPECIFIED Status: Acute Priority: Medium - Patient Summary/Data Labs Pending at D/C: None Recommended Follow-up Testing/Procedures: Follow-up with PCP next week Echo and Cardiolite stress test should be scheduled next week Hospital Course: I/P: Acute: New onset A-fib with RVR -Reports onset about 3 weeks prior. -Cardizem drip started in ED with Resolution of RVR; remains in A-fib -No history of A-fib -Converted to PO cardizem -Resume home BB at 1/2 dose -Magnesium 1.8 -No signs of infection; no recent sick contacts -secured entrance monitor -Ambulate -[id number] score of 2 - "moderate-high and should otherwise be an anticoagulation candidate" -Started on Eliquis BID -Pro-BNP 542 -Attempted to obtain echo but unable due to weekend. Suggest outpatient echo. -No spice cleaner available on weekend - discusses weight loss and availability for scheduling -Echo/stress test next week Subclinical hypothyroidism -TSH 5.209 -T4 0.92 -PCP to monitor Chronic: HTN Pedal edema Gout Sleep Apnea with home CPAP use Plan: Admit to ICU -> downgraded to MSP status Home medications as ordered Other orders as indicated above Routine AM labs No need for PT/OT currently DVT prophylaxis: Eliquis Code status: Full code; PCP: Pop Pittman PA-C Kahlil was admitted to the ICU after coming to our ED complaining of dyspnea, chest pain, and irregular heartbeat. He was found to be in A. fib with RVR and Cardizem drip was subsequently started. He was able to be transitioned to by mouth medications however his A. fib persisted. [id number] was elevated he was started on 5 mg twice a day Eliquis. BNP was noted to be mildly elevated at 542. He had no signs of infection and troponin remained WNL. Lipid panel was obtained and mildly low HDL was noted. Triglycerides, LDL, and total cholesterol were within normal limits. He had been on 50 mg extended release metoprolol once daily. He was switched to 25 mg twice a day metoprolol. Heart rate did respond however he was noted to have rates up into the 130s to 150s with ambulation. Because of this Cardizem dose was increased to 240 mg. he responded well to this and was able to ablate around the hoffmann with max heart rate being in the 110s. TSH was elevated however T4 was within normal limits. Unfortunately because of the weekend our services are limited. He is unable to obtain an inpatient echo so he should obtain one this early next week. He would also benefit from a stress test and this should be scheduled next week as well. Orders for both have been sent. We did discuss weight loss as he has a BMI of 59.7. He was made aware of our dietitian services and how he could contact them weekdays to set up an appointment. All medications were reviewed with Dr. Acuna who noted that indomethacin is not a good choice for a patient with heart issues such as this. We will therefore stop his indomethacin and start him on 600 mg twice a day Motrin. All questions were answered and there were no patient or nursing concerns. He was prescribed 5 mg twice a day Eliquis , 0.5 mg twice a day metoprolol tartrate, and 240 mg daily Cardizem medications. He is also sent a prescription for Motrin as above. He was instructed to follow-up with his primary care provider within 7-10 days of discharge. He was advised to contact his primary care provider or return to the ED should symptoms return. He was advised to check his blood pressure and pulse at least daily and keep a journal, bringing this with to all medical appointments. He will be discharged today. - Patient Instructions Diet: Heart Healthy Diet Activity: As Tolerated Notify Provider of: Fever, Increased Pain, Nausea and/or Vomiting Other/Special Instructions: Follow-up with your primary care provider, Pop Pittman PA-C early next week. You have been given instructions for obtainaing an echocardiogram. Obtain this next week. You were started on some new medicaitons. Be sure to take this as prescribed. You should stop taking your indomethacin. Start taking motrin as prescribed. Take your blood pressure and weigh daily. Record this in a journal and bring it with to all medical appointments. Machines are able to be purched at [employer] and similar stores. We suggest you loose some weight for your overall general health. We do have dieticians on staff and you may contact the hospital to schedule an appointment with them should you feel it would be helpful. Should symptoms return or worsen , contact your primar care provider or return to the ED. - Discharge Plan *PRESCRIPTION DRUG MONITORING PROGRAM REVIEWED*: No *COPY OF PRESCRIPTION DRUG MONITORING REPORT IN PATIENT INES: No Prescriptions/Med Rec: Apixaban [Eliquis] 5 mg PO BID #30 tablet Diltiazem [Cardizem CD] 240 mg PO DAILY #40 cap.cd Ibuprofen [Motrin] 600 mg PO BIDM #60 tab Metoprolol Tartrate [Lopressor] 25 mg PO Q12H #40 tablet Home Medications: Home Meds Allopurinol [Zyloprim] 100 mg PO DAILY 01/18/19 [History] Furosemide 80 mg PO DAILY 01/18/19 [History] Spironolactone [Aldactone] 25 mg PO DAILY 01/18/19 [History] Apixaban [Eliquis] 5 mg PO BID #30 tablet 01/20/19 [Rx] Diltiazem [Cardizem CD] 240 mg PO DAILY #40 cap.cd 01/20/19 [Rx] Ibuprofen [Motrin] 600 mg PO BIDM #60 tab 01/20/19 [Rx] Metoprolol Tartrate [Lopressor] 25 mg PO Q12H #40 tablet 01/20/19 [Rx] Oxygen Therapy Mode: Room Air Patient Handouts: Shortness of Breath, Adult, [id number], Edema, [id number] , Apixaban oral tablets, Atrial Fibrillation, [id number] Referrals: Pop Pittman PA-C [Primary Care Provider] - (Please call to schedule a post hospitalization f/u appointment to be seen within the next 7-10 days.) - Discharge Summary/Plan Comment DC Time >30 min.: Yes (45 minutes) - General Info Date of Service: 01/20/19 Admission Dx/Problem (Free Text: Admission Diagnosis/Problem Admission Diagnosis/Problem Atrial fibrillation Subjective Update: 01/19/19: In to see Kahlil. He has been up ambulating. HR increased to 120-130s today with ambulation. Will resume half dose of BB. Otherwise he remains asymptomatic, however he is still in A-fib. Eliquis is discussed with the patient, who agrees to continuation. Echo was attempted to be obtained however due to timing and weekend it will not be available until Tuesday. May need to follow-up with as outpatient. Labs remain stable. 01/20/19: HR was noted to increase into 130-140's today regularly with ambulation. Will increase CCB dosing. He remains in A-fib. No other symptoms. Lipid panel obtained. No patient or nursing concerns. Functional Status: Reports: Pain Controlled, Tolerating Diet, Ambulating, Urinating. Denies: New Symptoms - Review of Systems General: Reports: No Symptoms. Denies: Fever, Weakness, Fatigue, Malaise, Chills HEENT: Reports: No Symptoms. Denies: Headaches, Sore Throat Pulmonary: Reports: No Symptoms. Denies: Shortness of Breath, Pleuritic Chest Pain, Cough, Hemoptysis, Wheezing Cardiovascular: Reports: Edema (chronic ). Denies: Chest Pain, Palpitations, Dyspnea on Exertion, Lightheadedness Gastrointestinal: Reports: No Symptoms. Denies: Abdominal Pain, Constipation, Diarrhea, Nausea, Vomiting Genitourinary: Reports: No Symptoms. Denies: Pain Musculoskeletal: Reports: No Symptoms Skin: Reports: No Symptoms. Denies: Cyanosis Neurological: Reports: No Symptoms. Denies: Confusion, Pre-Existing Deficit, Difficulty Walking, Gait Disturbance Psychiatric: Reports: No Symptoms - Patient Data Vitals - Most Recent: Last Vital Signs Temp 97.1 F 01/20/19 08:41 Pulse 96 01/20/19 08:47 Resp 20 01/20/19 08:41 BP 145/109 H 01/20/19 08:47 Pulse Ox 100 01/20/19 08:41 Weight - Most Recent: 428 lb I&O - Last 24 hours: Intake & Output 01/19/19 01/20/19 01/20/19 22:59 06:59 14:59 Intake Total 1950 400 920 Balance 1950 400 920 Lab Results - Last 24 hrs: Laboratory Results - last 24 hr 01/20/19 01/20/19 Range/Units 04:15 04:15 Sodium 139 (136-145) mEq/L Potassium 4.2 (3.5-5.1) mEq/L Chloride 104 (98-107) mEq/L Carbon Dioxide 25 (21-32) mEq/L Anion Gap 14.2 (5-15) BUN 17 (7-18) mg/dL Creatinine 0.9 (0.7-1.3) mg/dL Est Cr Clr Drug Dosing 91.80 mL/min Estimated GFR (MDRD) > 60 (>60) mL/min BUN/Creatinine Ratio 18.9 H (14-18) Glucose 123 H (80-115) mg/dL Calcium 8.4 L (8.5-10.1) mg/dL Magnesium 1.8 (1.8-2.4) mg/dl Triglycerides 128 (<150) mg/dL Cholesterol 122 (<200) mg/dL LDL Cholesterol Direct 83 (<100) mg/dL HDL Cholesterol 29.0 L (40-59) mg/dL Med Orders - Current: Current Medications Acetaminophen (Tylenol) 650 mg PO Q4H PRN PRN Reason: analgesia/fever Allopurinol (Zyloprim) 100 mg PO DAILY [facility] Last Admin: 01/20/19 08:46 Dose: 100 mg Apixaban (Eliquis) 5 mg PO BID [facility] Last Admin: 01/20/19 08:46 Dose: 5 mg Diltiazem HCl (Cardizem Cd) 240 mg PO DAILY [facility] Last Admin: 01/20/19 08:47 Dose: 240 mg Indomethacin (Indocin) 50 mg PO DAILY [facility] Last Admin: 01/20/19 08:46 Dose: 50 mg Metoprolol Tartrate (Lopressor) 25 mg PO Q12H [facility] Last Admin: 01/20/19 08:47 Dose: 25 mg Sodium Chloride (Saline Flush) 10 ml FLUSH ASDIRECTED PRN PRN Reason: Keep Vein Open Last Admin: 01/19/19 20:24 Dose: 10 ml Spironolactone (Aldactone) 25 mg PO DAILY [facility] Discontinued Medications Apixaban (Eliquis) 5 mg PO ONETIME ONE Stop: 01/18/19 19:36 Last Admin: 01/18/19 21:00 Dose: 5 mg Diltiazem HCl (Cardizem) 10 mg IVPUSH ONETIME ONE Stop: 01/18/19 17:34 Last Admin: 01/18/19 17:51 Dose: 10 mg Diltiazem HCl (Cardizem) 60 mg PO ONETIME ONE Stop: 01/18/19 19:36 Last Admin: 01/18/19 19:45 Dose: 60 mg Diltiazem HCl (Cardizem Cd) 180 mg PO ONETIME ONE Stop: 01/19/19 06:01 Last Admin: 01/19/19 06:26 Dose: 180 mg Diltiazem HCl (Cardizem Cd) 180 mg PO DAILY [facility] Diltiazem HCl 125 mg/ Sodium (Chloride) 125 mls @ 10 mls/hr IV TITRATE [facility]; Protocol Last Titration: 01/18/19 18:34 Dose: 5 mg/hr, 5 mls/hr Magnesium Oxide (Magnesium Oxide) 400 mg PO ONETIME ONE Stop: 01/19/19 11:20 Last Admin: 01/19/19 11:40 Dose: 400 mg - Exam Quality Assessment: Reports: DVT Prophylaxis General: Reports: Alert, Oriented, Cooperative, No Acute Distress HEENT: Reports: Pupils Equal, Pupils Reactive, EOMI Neck: Reports: Supple, Trachea Midline Lungs: Reports: Clear to Auscultation, Normal Respiratory Effort Cardiovascular: Reports: Regular Rate, Irregular Rhythm GI/Abdominal Exam: Normal Bowel Sounds, Soft, Non-Tender, No Distention, No Abnormal Bruit (Male) Exam: Deferred Rectal (Males) Exam: Deferred Back Exam: Reports: Normal Inspection, Full Range of Motion Extremities: Normal Inspection, Normal Range of Motion, Non-Tender, No Pedal Edema, Normal Capillary Refill Skin: Reports: Warm, Dry, Intact Neurological: Reports: No New Focal Deficit Psy/Mental Status: Reports: Alert, Normal Affect, Normal Mood
== END 2019-01-20 13:19 | disposition home or self-care (01) | DRG 201 ==
LOC: JD.ED 16:56 → JD.ICU 19:32
PROVIDERS: ADMIT Emergency Medicine; ATTEND Emergency Medicine
DX: I48.91 Unspecified atrial fibrillation (principal); I10 Essential (primary) hypertension; E03.9 Hypothyroidism, unspecified; M10.9 Gout, unspecified; G47.30 Sleep apnea, unspecified; E66.9 Obesity, unspecified; Z68.43 Body mass index [BMI] 50.0-59.9, adult; Z79.899 Other long term (current) drug therapy; Z88.8 Allergy status to other drugs, medicaments and biological substances
CPT/HCPCS: 36415; 71045; 71045-26; 80048; 80053; 80061; 83735; 83880; 84439; 84443; 84484; 85025; 93010; 96365; 96376; 99284; 99285-25; A9270-GY; J3490; J7030

== ENCOUNTER 2019-11-03 09:53 | Emergency (ER) | payer BC ==
--- NOTE | 2019-11-03 10:44 | EDM.PDOC ---
ED HPI GENERAL MEDICAL PROBLEM - General Chief Complaint: General Stated Complaint: FEVER FOR 10 DAYS AND SOB Time Seen by Provider: 11/03/19 10:39 Source of Information: Reports: Patient History Limitations: Reports: No Limitations - History of Present Illness INITIAL COMMENTS - FREE TEXT/NARRATIVE: 64-year-old male presents to the ED with a reported fever for the last 10 days. Denies cough or sputum production. Over the last several days he is developed increased dyspnea on minimal exertion and or severe orthopnea over the last 2 nights. He presents diaphoretic cool and clammy. O2 sats were only 88%. Placed on oxygen at 3 40 said he is been taking all of his medications. Denies any nausea vomiting or diarrhea but very poor oral intake for the last 3 to 4 days. Ports his lower extremities do not seem to be any more swollen than normal and his comments that the actual look better than normal. Recent changes to any of his medications. L/min to achieve sats of 97%. He has chronic atrial fibrillation and current rate is anywhere between 130 and 158/ min. She is currently on Lasix 80 mg twice daily. He is on Eliquis daily metoprolol 100 mg twice daily and Cardizem 240 mg CD once daily. Onset: Gradual Onset Date: 10/24/19 (Not been feeling well for the last 10 days. He believes he has been running a low-grade fever for the last 10 days. Denies any sores on his skin. Denies cough or sputum production. No genitourinary complaints.) Duration: Day(s):, Getting Worse Location: Reports: Chest (Creased dyspnea and orthopnea over the last 3 days. He presents to the ED markedly short of breath this morning.) Quality: Reports: Other Severity: Severe (Of your dyspnea) Improves with: Reports: Rest Worsens with: Reports: Other, Movement Context: Denies: Activity, Exercise, Lifting, Sick Contact (And down), Trauma Associated Symptoms: Reports: Diaphoresis, Fever/Chills (Of had a fever off and on for the last 10 days), Loss of Appetite, Malaise, Shortness of Breath, Weakness, Other (Bowel movement for about 4 days.). 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 (see below) (His regular medications) - Related Data Allergies Allergy/AdvReac Type Severity Reaction Status Date / Time lisinopril AdvReac Cough Verified 11/03/19 10:09 Home Meds: Home Meds Furosemide 80 mg PO BID 01/18/19 [History] Spironolactone [Aldactone] 25 mg PO DAILY 01/18/19 [History] allopurinoL [Zyloprim] 200 mg PO DAILY 01/18/19 [History] Diltiazem [Cardizem CD] 240 mg PO DAILY #40 cap.cd 01/20/19 [Rx] Ibuprofen [Motrin] 600 mg PO BIDM #60 tab 01/20/19 [Rx] Apixaban [Eliquis] 10 mg PO BID 11/03/19 [History] Ascorbic Acid [Vitamin C] 1,000 mg PO DAILY 11/03/19 [History] FA/Lycopene/Lut/MV,Ca,Iron,Min [Centrum] 1 tab PO DAILY 11/03/19 [History] Metoprolol Tartrate [Lopressor] 100 mg PO Q12H 11/03/19 [History] Past Medical History Cardiovascular History: Reports: Afib (Chronic atrial fib and is on Eliquis for this metoprolol and Cardizem for rate control), Heart Failure, Hypertension Respiratory History: Reports: Sleep Apnea Musculoskeletal History: Reports: Gout - Past Surgical History Cardiovascular Surgical History: Reports: None Respiratory Surgical History: Reports: None Musculoskeletal Surgical History: Reports: None Social & Family History - Family History Family Medical History: Noncontributory - Tobacco Use Smoking Status *Q: Never Smoker - Caffeine Use Caffeine Use: Reports: Soda - Living Situation & Occupation Living situation: Reports: Occupation: Unemployed ED ROS GENERAL - Review of Systems Review Of Systems: See Below Constitutional: Reports: Fever, Malaise, Weakness, Fatigue, Decreased Appetite. Denies: Chills HEENT: Reports: Glasses (Reading) Respiratory: Reports: Shortness of Breath, Other (Apnea). Denies: Wheezing, Pleuritic Chest Pain, Cough, Sputum Cardiovascular: Reports: Blood Pressure Problem (Often runs low due to the medications he takes for rate control), Dyspnea on Exertion (Dependent edema both lower extremities very recently), Edema, Lightheadedness. Denies: Chest Pain, Claudication ( of his A. fib.), Orthopnea Endocrine: Reports: Fatigue GI/Abdominal: Reports: Constipation (Bowel movement for the last 4 days), Decreased Appetite : Reports: Frequency, Other (Nocturia x3) Musculoskeletal: Reports: Back Pain, Joint Pain Skin: Reports: Bruising (He was easily as he is on Eliquis) Neurological: Reports: No Symptoms Psychiatric: Reports: No Symptoms Hematologic/Lymphatic: Reports: No Symptoms Immunologic: Reports: No Symptoms ED EXAM, GENERAL - Physical Exam Exam: See Below Exam Limited By: No Limitations General Appearance: Alert, WD/WN, Moderate Distress, Other (Patient is cool clammy and diaphoretic. Temperature is 38.6 pulse 1 29-1 50 uncontrolled atrial fib respiratory of 22 to 24/min O2 sats 93% room air BP 101 on 67) Eye Exam: Bilateral Eye: Normal Inspection (Blepharal pallor no scleral icterus. ) Ears: Normal TMs Throat/Mouth: Normal Inspection, Normal Lips, Normal Teeth, Normal Oropharynx Head: Atraumatic, Normocephalic Neck: Normal Inspection, Supple, Non-Tender. No: Full Range of Motion, Lymphadenopathy (R) Respiratory/Chest: Chest Non-Tender (Adventitial sounds appreciated), Respiratory Distress, Decreased Breath Sounds (Tachypnea. Creased air entry to the lower). No: Rales, Rhonchi ( 25% lung ramon bilaterally.), Wheezing Cardiovascular: Normal Peripheral Pulses, No Gallop (Atrial fibrillation 125 to 150/min on the monitor), No Murmur, No Rub, Irregularly Irregular. No: Regular Rate, Rhythm, No Edema Peripheral Pulses: 1+: Posterior Tibial (L), Posterior Tibial (R), Dorsalis Pedis (L), Dorsalis Pedis (R) GI/Abdominal: Normal Bowel Sounds, Soft (Soles are barely palpable in his feet due to edema), Non-Tender, No Organomegaly, No Mass, Pelvis Stable, Other (, Girth precludes ability to palpate solid organs.) Back Exam: Normal Inspection, Full Range of Motion. No: CVA Tenderness (L), CVA Tenderness (R) Extremities: Pedal Edema (Pitting edema both lower extremities and dorsal feet and ankles. Goes up to about mid tib-fib.) Neurological: Alert, Oriented, CN II-XII Intact, Normal Cognition. No: Normal Gait Psychiatric: Normal Affect, Other (Sigifredo hard to breathe.) Skin Exam: Cool, Diaphoretic EKG INTERPRETATION EKG Date: 11/03/19 Time: 10:31 Rhythm: A-Fib Rate (Beats/Min): 142 [place]: Normal P-Wave: Absent QRS: Other (Decreased voltage precordial leads.) ST-T: Other (Diffuse early repolarization pattern wave inversion to 3 and aVF.) QT: Normal EKG Interpretation Comments: Abnormal ECG with no definitive signs of ischemia. Course - Vital Signs Last Recorded V/S: Last Vital Signs Temp 37.6 C 11/03/19 13:43 Pulse 106 H 11/03/19 12:35 Resp 23 H 11/03/19 12:35 BP 91/65 11/03/19 12:35 Pulse Ox 95 11/03/19 12:35 - Orders/Labs/Meds Orders: Active Orders 24 hr Category Date Time Status Bladder Scan [RC] ASDIRECTED Care 11/03/19 13:27 Active EKG Documentation Completion [RC] STAT Care 11/03/19 10:46 Active Oxygen Therapy [RC] ASDIRECTED Care 11/03/19 10:47 Active Abdomen Pelvis wo Cont [CT] Stat Exams 11/03/19 12:14 Taken Chest 1V Frontal [CR] Stat Exams 11/03/19 10:46 Taken CULTURE BLOOD [BC] Stat Lab 11/03/19 11:50 Received CULTURE BLOOD [BC] Stat Lab 11/03/19 12:00 Received CULTURE URINE [RM] Stat Lab 11/03/19 13:55 Received Diltiazem [Cardizem] 100 mg Med 11/03/19 13:30 Active Sodium Chloride 0.9% [Normal Saline] 100 ml IV TITRATE Sodium Chloride 0.9% [Normal Saline] 1,000 ml Med 11/03/19 12:30 Active IV ASDIRECTED Sodium Chloride 0.9% [Normal Saline] 1,000 ml Med 11/03/19 15:45 Active IV ASDIRECTED Blood Culture x2 Reflex Set [OM.PC] Stat Oth 11/03/19 10:47 Ordered Isolation [COMM] Routine Oth 11/03/19 10:46 Ordered Medication Orders Sodium Chloride (Normal Saline) 1,000 mls @ 125 mls/hr IV ASDIRECTED HAL Last Infusion: 11/03/19 15:47 Dose: 999 mls/hr Admin: 11/03/19 12:08 Dose: 125 mls/hr Diltiazem HCl 100 mg/ Sodium (Chloride) 100 mls @ 15 mls/hr IV TITRATE HAL; Protocol Sodium Chloride (Normal Saline) 1,000 mls @ 999 mls/hr IV ASDIRECTED HAL Last Admin: 11/03/19 15:57 Dose: 999 mls/hr Labs: Laboratory Tests 11/03/19 11/03/19 11/03/19 Range/Units 10:30 10:30 10:30 WBC 13.21 H (4.23-9.07) K/mm3 RBC 3.46 L (4.63-6.08) M/mm3 Hgb 12.7 L D (13.7-17.5) gm/dl Hct 37.8 L (40.1-51.0) % MCV 109.2 H D (79.0-92.2) fl MCH 36.7 H (25.7-32.2) pg MCHC 33.6 (32.2-35.5) g/dl RDW Std Deviation 51.6 H (35.1-43.9) fL Plt Count 317 (163-337) K/mm3 MPV 11.1 (9.4-12.3) fl Neutrophils % (Manual) 95 H (40-60) % Band Neutrophils % 0 (0-10) % Lymphocytes % (Manual) 4 L (20-40) % Atypical Lymphs % 0 % Monocytes % (Manual) 1 L (2-10) % Eosinophils % (Manual) 0 L (0.8-7.0) % Basophils % (Manual) 0 L (0.2-1.2) Platelet Estimate Adequate Macrocytosis 2+ moderate Target Cells 1+ slight RBC Morph Comment Not Reportable PT (9.7-12.0) SECONDS INR APTT (22-31) SECONDS Sodium 134 L (136-145) mEq/L Potassium 4.2 (3.5-5.1) mEq/L Chloride 97 L (98-107) mEq/L Carbon Dioxide 23 (21-32) mEq/L Anion Gap 18.2 H (5-15) BUN 25 H (7-18) mg/dL Creatinine 2.2 H D (0.7-1.3) mg/dL Est Cr Clr Drug Dosing 37.08 mL/min Estimated GFR (MDRD) 30 (>60) mL/min BUN/Creatinine Ratio 11.4 L (14-18) Glucose 100 (80-115) mg/dL Lactic Acid (0.4-2.0) mmol/L Calcium 8.7 (8.5-10.1) mg/dL Magnesium 1.6 L (1.8-2.4) mg/dl Total Bilirubin 1.3 H (0.2-1.0) mg/dL AST 41 H (15-37) U/L ALT 50 (16-63) U/L Alkaline Phosphatase 108 (46-116) U/L CK-MB (CK-2) 0.5 (0-3.6) ng/ml Troponin I < 0.017 (0.00-0.056) ng/mL C-Reactive Protein 26.3 H* (<1.0) mg/dL NT-Pro-B Natriuret Pep 3876 H (0-125) pg/mL Total Protein 7.2 (6.4-8.2) g/dl Albumin 2.4 L (3.4-5.0) g/dl Globulin 4.8 gm/dL Albumin/Globulin Ratio 0.5 L (1-2) Urine Color (Yellow) Urine Appearance (Clear) Urine pH (5.0-8.0) Ur Specific [place] (1.005-1.030) Urine Protein (Negative) Urine Glucose (UA) (Negative) Urine Ketones (Negative) Urine Occult Blood (Negative) Urine Nitrite (Negative) Urine Bilirubin (Negative) Urine Urobilinogen (0.2-1.0) Ur Leukocyte Esterase (Negative) Urine RBC (0-5) /hpf Urine WBC (0-5) /hpf Ur Squamous Epith Cells (0-5) /hpf Amorphous Sediment (NOT SEEN) /hpf Urine Bacteria (FEW) /hpf Urine Mucus (FEW) /hpf 11/03/19 11/03/19 11/03/19 Range/Units 11:50 11:50 13:48 WBC (4.23-9.07) K/mm3 RBC (4.63-6.08) M/mm3 Hgb (13.7-17.5) gm/dl Hct (40.1-51.0) % MCV (79.0-92.2) fl MCH (25.7-32.2) pg MCHC (32.2-35.5) g/dl RDW Std Deviation (35.1-43.9) fL Plt Count (163-337) K/mm3 MPV (9.4-12.3) fl Neutrophils % (Manual) (40-60) % Band Neutrophils % (0-10) % Lymphocytes % (Manual) (20-40) % Atypical Lymphs % % Monocytes % (Manual) (2-10) % Eosinophils % (Manual) (0.8-7.0) % Basophils % (Manual) (0.2-1.2) Platelet Estimate Macrocytosis Target Cells RBC Morph Comment PT 15.1 H (9.7-12.0) SECONDS INR 1.41 APTT 30 (22-31) SECONDS Sodium (136-145) mEq/L Potassium (3.5-5.1) mEq/L Chloride (98-107) mEq/L Carbon Dioxide (21-32) mEq/L Anion Gap (5-15) BUN (7-18) mg/dL Creatinine (0.7-1.3) mg/dL Est Cr Clr Drug Dosing mL/min Estimated GFR (MDRD) (>60) mL/min BUN/Creatinine Ratio (14-18) Glucose (80-115) mg/dL Lactic Acid 2.1 H* 2.5 H* (0.4-2.0) mmol/L Calcium (8.5-10.1) mg/dL Magnesium (1.8-2.4) mg/dl Total Bilirubin (0.2-1.0) mg/dL AST (15-37) U/L ALT (16-63) U/L Alkaline Phosphatase (46-116) U/L CK-MB (CK-2) (0-3.6) ng/ml Troponin I (0.00-0.056) ng/mL C-Reactive Protein (<1.0) mg/dL NT-Pro-B Natriuret Pep (0-125) pg/mL Total Protein (6.4-8.2) g/dl Albumin (3.4-5.0) g/dl Globulin gm/dL Albumin/Globulin Ratio (1-2) Urine Color (Yellow) Urine Appearance (Clear) Urine pH (5.0-8.0) Ur Specific [place] (1.005-1.030) Urine Protein (Negative) Urine Glucose (UA) (Negative) Urine Ketones (Negative) Urine Occult Blood (Negative) Urine Nitrite (Negative) Urine Bilirubin (Negative) Urine Urobilinogen (0.2-1.0) Ur Leukocyte Esterase (Negative) Urine RBC (0-5) /hpf Urine WBC (0-5) /hpf Ur Squamous Epith Cells (0-5) /hpf Amorphous Sediment (NOT SEEN) /hpf Urine Bacteria (FEW) /hpf Urine Mucus (FEW) /hpf 11/03/19 Range/Units 13:55 WBC (4.23-9.07) K/mm3 RBC (4.63-6.08) M/mm3 Hgb (13.7-17.5) gm/dl Hct (40.1-51.0) % MCV (79.0-92.2) fl MCH (25.7-32.2) pg MCHC (32.2-35.5) g/dl RDW Std Deviation (35.1-43.9) fL Plt Count (163-337) K/mm3 MPV (9.4-12.3) fl Neutrophils % (Manual) (40-60) % Band Neutrophils % (0-10) % Lymphocytes % (Manual) (20-40) % Atypical Lymphs % % Monocytes % (Manual) (2-10) % Eosinophils % (Manual) (0.8-7.0) % Basophils % (Manual) (0.2-1.2) Platelet Estimate Macrocytosis Target Cells RBC Morph Comment PT (9.7-12.0) SECONDS INR APTT (22-31) SECONDS Sodium (136-145) mEq/L Potassium (3.5-5.1) mEq/L Chloride (98-107) mEq/L Carbon Dioxide (21-32) mEq/L Anion Gap (5-15) BUN (7-18) mg/dL Creatinine (0.7-1.3) mg/dL Est Cr Clr Drug Dosing mL/min Estimated GFR (MDRD) (>60) mL/min BUN/Creatinine Ratio (14-18) Glucose (80-115) mg/dL Lactic Acid (0.4-2.0) mmol/L Calcium (8.5-10.1) mg/dL Magnesium (1.8-2.4) mg/dl Total Bilirubin (0.2-1.0) mg/dL AST (15-37) U/L ALT (16-63) U/L Alkaline Phosphatase (46-116) U/L CK-MB (CK-2) (0-3.6) ng/ml Troponin I (0.00-0.056) ng/mL C-Reactive Protein (<1.0) mg/dL NT-Pro-B Natriuret Pep (0-125) pg/mL Total Protein (6.4-8.2) g/dl Albumin (3.4-5.0) g/dl Globulin gm/dL Albumin/Globulin Ratio (1-2) Urine Color Yellow (Yellow) Urine Appearance Cloudy H (Clear) Urine pH 6.0 (5.0-8.0) Ur Specific [place] 1.020 (1.005-1.030) Urine Protein 1+ H (Negative) Urine Glucose (UA) Negative (Negative) Urine Ketones Negative (Negative) Urine Occult Blood 2+ H (Negative) Urine Nitrite Negative (Negative) Urine Bilirubin Negative (Negative) Urine Urobilinogen 1.0 (0.2-1.0) Ur Leukocyte Esterase 3+ H (Negative) Urine RBC 5-10 H (0-5) /hpf Urine WBC 50-75 H (0-5) /hpf Ur Squamous Epith Cells 0-5 (0-5) /hpf Amorphous Sediment Few H (NOT SEEN) /hpf Urine Bacteria Moderate H (FEW) /hpf Urine Mucus Moderate H (FEW) /hpf Meds: Medications Generic Name Dose Route Start Last Admin Trade Name Freq PRN Reason Stop Dose Admin Sodium Chloride 1,000 mls @ 125 mls/hr 11/03/19 12:30 11/03/19 15:47 Normal Saline IV 999 mls/hr ASDIRECTED HAL Infusion Diltiazem HCl 100 mg/ Sodium 100 mls @ 15 mls/hr 11/03/19 13:30 Chloride IV TITRATE HAL Protocol 15 MG/HR Sodium Chloride 1,000 mls @ 999 mls/hr 11/03/19 15:45 11/03/19 15:57 Normal Saline IV 999 mls/hr ASDIRECTED HAL Administration Discontinued Medications Generic Name Dose Route Start Last Admin Trade Name Freq PRN Reason Stop Dose Admin Acetaminophen 975 mg 11/03/19 13:23 11/03/19 13:43 Tylenol PO 11/03/19 13:24 975 mg NOW ONE Administration Acetaminophen 975 mg 11/03/19 15:59 Tylenol PO 11/03/19 16:00 NOW ONE Diltiazem HCl 10 mg 11/03/19 10:45 11/03/19 10:57 Cardizem IVPUSH 11/03/19 10:46 10 mg ONETIME ONE Administration Diltiazem HCl 10 mg 11/03/19 11:04 11/03/19 11:36 Cardizem IVPUSH 11/03/19 11:05 10 mg ONETIME ONE Administration Diltiazem HCl 10 mg 11/03/19 13:14 11/03/19 13:25 Cardizem IVPUSH 11/03/19 13:15 10 mg ONETIME ONE Administration Diltiazem HCl 10 mg 11/03/19 14:03 11/03/19 15:30 Cardizem IVPUSH 11/03/19 14:04 Not Given ONETIME ONE Furosemide 60 mg 11/03/19 10:45 11/03/19 11:05 Lasix IVPUSH 11/03/19 10:46 60 mg NOW ONE Administration Diltiazem HCl 125 mg/ Sodium 125 mls @ 15 mls/hr 11/03/19 11:15 11/03/19 15: 57 Chloride IV 5 mg/hr TITRATE HAL 5 mls/hr Titration Protocol 15 MG/HR Sodium Chloride Confirm 11/03/19 12:06 11/03/19 12:29 Normal Saline Administered 11/03/19 12:07 Not Given Dose 1,000 mls @ as directed .ROUTE .STK-MED ONE Cefepime HCl 2 gm/ Premix 50 mls @ 100 mls/hr 11/03/19 13:16 11/03/19 14:05 IV 11/03/19 13:45 100 mls/hr ONETIME ONE Administration Lidocaine HCl 10 ml 11/03/19 13:30 11/03/19 14:05 Xylocaine 2% Jelly MUCMEM 11/03/19 13:31 10 ml ONETIME ONE Administration - Radiology Interpretation Free Text/Narrative:: T4-year-old male presents to the ED with reported 10-day history of high fever. No associated cough or sputum production. Poor oral intake and no bowel movement for 4 days. He is in chronic atrial fibrillation and presents with atrial fibrillation with rapid ventricular response up to as high as 250/min on the ECG. His blood pressure is anywhere from 93 systolic to 1 03 systolic. He reports that he is been taking all of his medications. He takes Lasix 80 mg twice daily. Clinically he is in congestive failure. He will be given 60 mg of Lasix intravenously. Initial bolus of Cardizem 10 mg IV followed by drip at 10 mg/min. What this does to his blood pressure. Teen labs of course ordered including cardiac markers. Patient is on Eliquis. No obvious source for bacterial infection identified on examination to account for subjective fever over the last 10 days. - Re-Assessments/Exams Free Text/Narrative Re-Assessment/Exam: 11/03/19 11:10 Current heart rate is currently in the 126-139 range. BP is 93/ 56. After the first dose of Cardizem 10 mg IV bolus. This will be repeated at this time and then start cardiazem drip at 10 mg an hour 11/03/19 12:17 Free Text/Narrative Re-Assessment/Exam: 11/03/19 11:56 and is down in the 1 teens. Unfortunately his blood pressure is low as well at 88/60. I will run some normal saline at 125 mils per hour to try and bring his pressure up a little bit. Cardizem drip is running at 10 mg/ h and seems to be controlling his rate. He remains cool clammy and diaphoretic on examination. As he is claiming of fever for the last 10 days I cannot identify any bacterial source of infection. Require admission to the intensive care unit for atrial fibrillation control and further investigations of fever at home for 10 days. Denies any cough or sputum production. Influenza screen is negative. 11/03/19 12:13 White blood Count is elevated at 13.21 with a left shift of 95% neutrophils no bands cells reported. Hemoglobin is 12.7 with hematocrit of 37.8. MCV is elevated at 109.2. Platelet count 317,000. Sodium 134 with a potassium of 4.2. Chloride 97 with a bicarb of 23 anion gap is elevated at 18.2. BUN is 25 with a creatinine of 2.2 and a GFR of only 30 making him stage III on nearly stage IV chronic renal insufficiency. Glucose is 100 with a calcium of 8.7. Magnesium slightly low at 1.6. Bilirubin is 1.3 AST is 41 with an ALT of 50. Alk phosphatase is 108. CK-MB fraction is 0.5 and troponin I is less than 0.017. C-reactive protein is markedly elevated at 26.3. Protein is 7.2 with an albumin fraction of 2.4. His chest x-ray reveals severe cardiomegaly with diffuse vascular congestion pattern without pleural effusion. No obvious pulmonary infiltrates are evident to state that he has a pneumonia to account for his elevated white count. Patient has not yet voided. 11/03/19 12:47 Lactic acid returned at 2.1. BNP is also elevated at 3876. Lactic acid will be repeated at 1348 hrs. 11/03/19 13:[address] of the abdomen and pelvis without contrast due to elevated renal function. Upon returning to the his suite he started to have the chills with Rigors. CT reveals a moderate sized hiatal hernia. Marked cardiomegaly. No significant pleural effusions. Liver is homogeneous. Gallbladder is present without any calcified gallstones. Pancreas appears normal. Adrenal glands appear normal. The kidneys show marked dilatation of the left renal pelvis of the kidney secondary to a 7 mm or little larger stone in the proximal left ureter with mild obstruction.. There are no stones in either kidney at this time. This likely is the source of his infection he is not yet been able to void. No signs of diverticulitis no free fluid in the pelvis. Start him on cefepime 2 g IV. Unfortunately his atrial fib is also become uncontrolled once again with a heart rate up into the 130s. BP was 145/ 85. We will therefore receive another dose of Cardizem 10 mg IV bolus and is drip will be increased from 5 to 10 g/h. Cussed the case with Dr. Whalen on- call hospitalist and will make a decision whether he is better served in a larger institution. Is not diabetic. Blood sugar is only 100. His reports that occasionally he is unable to void and have to self catheterize. We have been waiting for him to void and he has been unable to do so. Bladder scan to be done. Urine will be collected by urine catheterization. 11/03/19 14:04 heart rate is anywhere from 112 to 125/min. 11/03/19 15:09 urinalysis reveals bacteriuria but no signs of pyuria. Culture has been ordered. Heart rate is improved down around 105 206. Blood pressure 88 over the 8 with a mean arterial pressure of 70. I will discuss the case with hospitalist at [facility] in [place] 11/03/19 15:26 Urinalysis shows 3+ leukocyte esterase. The slide shows 5-10 RBCs per high-power field and 50-75 white cells per high-power field with moderate bacteria. Urine culture has been ordered 11/03/19 16:02 spoken with through the 1 call nurse at [facility] in [place]. He is excepted care through the emergency department of this patient. He will be transferred to that facility per ground ambulance. 2 problems. He has chronic atrial fibrillation with rapid ventricular response which is been difficult to control because of hypotension. His blood pressure is ranging around 88 to 94/min. This is also compromised by a 10-day history of intermittent fever and chills which appears to be due to an obstructive 7 mm stone in his proximal left ureter with an associated urinary tract infection. Last lactic acid was elevated at 2.5 the one prior was 2.1 this was after the first liter of IV fluids. He is currently receiving a second liter of normal saline and should have a lactic acid within the next 2 to 3 hours. Biotic was cefepime 1 g IV given in the ED. Early on a Cardizem drip at 10 mg/h. Rate was 95 atrial fibrillation at the time of discharge and BP was 97 per 61 with a mean arterial pressure of 70. Departure - Departure Time of Disposition: 16:04 Disposition: Home, Self-Care 01 Condition: Fair Clinical Impression: Chronic atrial fibrillation with RVR, Acute unilateral obstructive uropathy, Pyelonephritis, acute, Obesity (BMI 35.0-39.9 without comorbidity), Lactic acidosis - Discharge Information *PRESCRIPTION DRUG MONITORING PROGRAM REVIEWED*: Not Applicable *COPY OF PRESCRIPTION DRUG MONITORING REPORT IN PATIENT INES: Not Applicable Referrals: Pop Pittman PA-C [Primary Care Provider] - Forms: ED Department Discharge Additional Instructions: Patient transferred to [facility] for urological consultation due to obstructive 7 mm stone in his proximal left ureter which I believe is the source of his current infection. He has a low-grade lactic acidosis with an elevated white count and left shift. Elevated CRP at 26.3. This is other chromate rigidity is chronic atrial fibrillation with a rapid ventricular rate wiring numerous doses of Cardizem 10 mg bolus doses to bring the rate under control and then a Cardizem drip at 10 mg/h. He reports intermittent fever and chills for the last 10 days. Sepsis Event Note - Evaluation Sepsis Screening Result: No Definite Risk - Focused Exam Vital Signs: Vital Signs Temp Temp Pulse Resp BP BP Pulse Ox 11/03/19 13:43 37.6 C 11/03/19 13:09 36.9 C 11/03/19 12:35 106 H 23 H 91/65 95 11/03/19 11:30 99/61 11/03/19 11:05 93/56 L 11/03/19 10:55 94/59 L 11/03/19 10:47 11/03/19 10:06 38.6 C H 129 H 20 101/67 93 L Pulse Ox 11/03/19 13:43 11/03/19 13:09 11/03/19 12:35 11/03/19 11:30 11/03/19 11:05 11/03/19 10:55 11/03/19 10:47 95 11/03/19 10:06 Date Exam was Performed: 11/03/19 Time Exam was Performed: 16:02 - My Orders Last 24 Hours: My Active Orders 11/03/19 10:46 EKG Documentation Completion [RC] STAT Chest 1V Frontal [CR] Stat Isolation [COMM] Routine 11/03/19 10:47 Oxygen Therapy [RC] ASDIRECTED Blood Culture x2 Reflex Set [OM.PC] Stat 11/03/19 11:50 CULTURE BLOOD [BC] Stat 11/03/19 12:00 CULTURE BLOOD [BC] Stat 11/03/19 12:14 Abdomen Pelvis wo Cont [CT] Stat 11/03/19 12:30 Sodium Chloride 0.9% [Normal Saline] 1,000 ml IV ASDIRECTED 11/03/19 13:27 Bladder Scan [RC] ASDIRECTED 11/03/19 13:30 Diltiazem [Cardizem] 100 mg Sodium Chloride 0.9% [Normal Saline] 100 ml IV TITRATE 11/03/19 13:55 CULTURE URINE [RM] Stat 11/03/19 15:45 Sodium Chloride 0.9% [Normal Saline] 1,000 ml IV ASDIRECTED - Assessment/Plan Last 24 Hours: My Active Orders 11/03/19 10:46 EKG Documentation Completion [RC] STAT Chest 1V Frontal [CR] Stat Isolation [COMM] Routine 11/03/19 10:47 Oxygen Therapy [RC] ASDIRECTED Blood Culture x2 Reflex Set [OM.PC] Stat 11/03/19 11:50 CULTURE BLOOD [BC] Stat 11/03/19 12:00 CULTURE BLOOD [BC] Stat 11/03/19 12:14 Abdomen Pelvis wo Cont [CT] Stat 11/03/19 12:30 Sodium Chloride 0.9% [Normal Saline] 1,000 ml IV ASDIRECTED 11/03/19 13:27 Bladder Scan [RC] ASDIRECTED 11/03/19 13:30 Diltiazem [Cardizem] 100 mg Sodium Chloride 0.9% [Normal Saline] 100 ml IV TITRATE 11/03/19 13:55 CULTURE URINE [RM] Stat 11/03/19 15:45 Sodium Chloride 0.9% [Normal Saline] 1,000 ml IV ASDIRECTED
[2019-11-03] MEDS ORDERED: Furosemide 40 MG/4 ML VIAL IVPUSH ONE (10:45)
[2019-11-03] MEDS ORDERED: Diltiazem 50 MG/10 ML SDV IVPUSH ONE ×4 (10:45→14:03)
[2019-11-03] MEDS ORDERED: Diltiazem 125 MG in Sodium Chloride 0.9% 100 ML IV SCH (11:15)
[2019-11-03] MEDS ORDERED: Sodium Chloride 0.9% 1,000 ML ONE (12:06)
[2019-11-03] MEDS ORDERED: Sodium Chloride 0.9% 1,000 ML IV SCH ×2 (12:30→15:45)
[2019-11-03] MEDS ORDERED: Cefepime 2 GM in Premix Bag 1 BAG IV ONE (13:16)
[2019-11-03] MEDS ORDERED: Acetaminophen 325 MG Tab PO ONE ×2 (13:23→15:59)
[2019-11-03] MEDS ORDERED: Diltiazem 100 MG in Sodium Chloride 0.9% 100 ML IV SCH (13:30)
[2019-11-03] MEDS ORDERED: Lidocaine 2% Jelly 10 ML Urojet MUCMEM ONE (13:30)
[2019-11-03] MEDS ORDERED: Sodium Chloride 0.9% 2,000 ML ONE (16:18)
--- NOTE | 2019-11-05 07:40 | CR ---
Chest: Portable view of the chest was obtained. Comparison: Prior chest x-ray of 01/18/19. Heart is enlarged. Lungs are clear with no acute parenchymal change. Bony structures are grossly intact. Impression: 1. Mild cardiomegaly. 2. Nothing acute is otherwise seen. Diagnostic code #2 This report was dictated in MDT
--- NOTE | 2019-11-05 07:40 | CT ---
CT abdomen and pelvis Technique: Multiple axial sections were obtained from above the dome of the diaphragm inferiorly through the pubic symphysis. Intravenous contrast not utilized due to elevated creatinine. No oral contrast was given. Findings: Left kidney shows hydronephrosis. This finding is due to an obstructing stone located at the UPJ measuring about 8 mm. No other ureteral calculi are seen. No renal calculi are noted. Visualized lung bases show nothing acute. Fatty infiltration is seen diffusely within the liver. Spleen appears within normal limits. Adrenal glands show no nodule. Pancreas is within normal limits. Gallbladder contains no calcified gallstones. Aorta shows no aneurysm. No retroperitoneal adenopathy or mesenteric abnormalities are seen. Small fat-containing bilateral inguinal hernias are noted. Appendix not visualized with certainty. No free fluid is seen. Bone window settings were reviewed. Scattered degenerative change is noted within the spine. Very minimal fat-containing umbilical hernia is noted. Impression: 1. 8 mm obstructing stone located at the left UPJ causing proximal hydronephrosis. 2. Other findings as noted above which are felt to be nonacute. Diagnostic code #3 This report was dictated in MDT I agree with preliminary report from [facility], finalized on 11/03/19, 2:30 PM Central Time
== END 2019-11-03 16:25 | disposition home or self-care (01) ==
LOC: JD.ED 09:53
DX: I48.20 Chronic atrial fibrillation, unspecified (principal); N10 Acute pyelonephritis; Z87.2 Personal history of diseases of the skin and subcutaneous tissue; N13.9 Obstructive and reflux uropathy, unspecified; E66.9 Obesity, unspecified; Z68.43 Body mass index [BMI] 50.0-59.9, adult; I11.0 Hypertensive heart disease with heart failure; I50.9 Heart failure, unspecified; M10.9 Gout, unspecified; Z88.8 Allergy status to other drugs, medicaments and biological substances; Z79.01 Long term (current) use of anticoagulants; Z79.899 Other long term (current) drug therapy
CPT/HCPCS: 36415; 51798; 71045; 74176; 80053; 81001; 82553; 83605; 83735; 83880; 84484; 85007; 85027; 85610; 85730; 86140; 87040; 87086; 87804; 93005; 96365; 96366; 96368; 96375; 96376; 99285; A9270; J0692; J1940; J3490; J7030; J7050; 93010

== ENCOUNTER 2019-11-20 11:46 | Inpatient (IN) | payer BC, OTHER ==
[2019-11-20] MEDS ORDERED: Sodium Chloride 0.9% 10 ML Syringe FLUSH PRN (12:03)
[2019-11-20] MEDS ORDERED: Diltiazem 50 MG/10 ML SDV IVPUSH ONE ×2 (12:29→17:04)
--- NOTE | 2019-11-20 12:36 | EDM.PDOC ---
ED HPI GENERAL MEDICAL PROBLEM - General Chief Complaint: Fever Stated Complaint: FEVER AND KIDNEY STONES Time Seen by Provider: 11/20/19 12:03 Source of Information: Reports: Patient History Limitations: Reports: No Limitations - History of Present Illness INITIAL COMMENTS - FREE TEXT/NARRATIVE: Patient is a 64-year-old male who presents to the ER with complaints of a fever this morning. Patient states that he felt a little chilled so he checked his temp. States it was 102 at home. He did not take any antipyretics. Current temp is 98.9. Patient was discharged from [facility] in [place] last . He had been admitted for a kidney stone as well as urosepsis. He finished his antibiotic course that was prescribed to him, however he is unsure what the antibiotic was. Patient does have a history of A. fib RVR. He states that his heart rates have continued to be high after discharge and that at home they will go up to the 140s. 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 He has not had any shortness of breath, cough, or increased fatigue. He does state that he occasionally has some burning with urination. - Related Data Allergies Allergy/AdvReac Type Severity Reaction Status Date / Time lisinopril AdvReac Cough Verified 11/20/19 15:00 Home Meds: Home Meds Furosemide 40 mg PO BID 01/18/19 [History] Spironolactone [Aldactone] 25 mg PO DAILY 01/18/19 [History] allopurinoL [Zyloprim] 200 mg PO DAILY 01/18/19 [History] Apixaban [Eliquis] 5 mg PO BID 11/03/19 [History] Metoprolol Tartrate [Lopressor] 50 mg PO Q12H 11/03/19 [History] Diltiazem HCl [Diltiazem 24Hr ER] 240 mg PO DAILY 11/20/19 [History] Past Medical History Cardiovascular History: Reports: Afib, Heart Failure, Hypertension Respiratory History: Reports: Sleep Apnea Musculoskeletal History: Reports: Gout - Past Surgical History Cardiovascular Surgical History: Reports: None Respiratory Surgical History: Reports: None Musculoskeletal Surgical History: Reports: None Social & Family History - Family History Family Medical History: Noncontributory - Tobacco Use Smoking Status *Q: Never Smoker Second Hand Smoke Exposure: No - Caffeine Use Caffeine Use: Reports: Coffee - Recreational Drug Use Recreational Drug Use: No - Living Situation & Occupation Living situation: Reports: Occupation: Unemployed ED ROS GENERAL - Review of Systems Review Of Systems: Comprehensive ROS is negative, except as noted in HPI. ED EXAM, SEPSIS - Physical Exam Exam: See Below Exam Limited By: No Limitations General Appearance: Alert, WD/WN, No Apparent Distress Respiratory/Chest: No Respiratory Distress, Lungs Clear, Normal Breath Sounds, No Accessory Muscle Use, Chest Non-Tender Cardiovascular: Normal Peripheral Pulses, Regular Rate, Rhythm, No Edema, No Gallop, No JVD, No Murmur, No Rub GI/Abdominal Exam: Normal Bowel Sounds, Soft, Non-Tender, No Organomegaly, No Distention, No Abnormal Bruit, No Mass, Pelvis Stable Neurological: Alert, Oriented, CN II-XII Intact, Normal Cognition, Normal Gait, Normal Reflexes, No Motor/Sensory Deficits Psychiatric: Normal Affect, Normal Mood Skin: Warm, Dry, Intact, Normal Color, No Rash EKG INTERPRETATION EKG Date: 11/20/19 Time: 12:42 Rhythm: A-Fib Rate (Beats/Min): 108 [place]: Normal P-Wave: Absent QRS: Normal ST-T: Normal QT: Normal Course - Vital Signs Last Recorded V/S: Last Vital Signs Temp 102.3 F H 11/20/19 17:26 Pulse 98 11/20/19 17:24 Resp 20 11/20/19 17:26 BP 134/61 11/20/19 17:26 Pulse Ox 95 11/20/19 17:26 - Orders/Labs/Meds Orders: Active Orders 24 hr Category Date Time Status Patient Status [ADT] Routine ADT 11/20/19 17:41 Active Ambulate [RC] ASDIRECTED Care 11/20/19 17:40 Active Cardiac Monitoring [RC] CONTINUOUS Care 11/20/19 17:42 Active EKG Documentation Completion [RC] STAT Care 11/20/19 12:07 Active Height and Weight [RC] DAILY Care 11/20/19 17:40 Active Intake and Output [RC] QSHIFT Care 11/20/19 17:42 Active Oxygen Therapy [RC] PRN Care 11/20/19 17:41 Active Peripheral IV Care [RC] . DIRECTED Care 11/20/19 12:03 Active VTE/DVT Education [RC] PER UNIT ROUTINE Care 11/20/19 17:41 Active Vital Signs [RC] Q4H Care 11/20/19 17:41 Active Heart Healthy Diet [DIET] Diet 11/20/19 Breakfast Active BASIC METABOLIC PANEL,BMP [CHEM] AM Lab 11/21/19 05:11 Ordered CBC WITH AUTO DIFF [HEME] AM Lab 11/21/19 05:11 Ordered CORONAVIRUS COVID-19 PCR PHL [MREF] Routine Lab 11/20/19 13:20 Received CULTURE BLOOD [BC] Stat Lab 11/20/19 12:40 Received CULTURE BLOOD [BC] Stat Lab 11/20/19 12:55 Received CULTURE BLOOD [BC] Stat Lab 11/20/19 17:43 Ordered CULTURE BLOOD [BC] Stat Lab 11/20/19 17:43 Ordered CULTURE URINE [RM] Stat Lab 11/20/19 13:20 Received MAGNESIUM [CHEM] AM Lab 11/21/19 05:11 Ordered PHOSPHORUS [CHEM] AM Lab 11/21/19 05:11 Ordered REFLEX LACTIC ACID YES OR NO [CHEM] Routine Lab 11/20/19 16:50 Received Acetaminophen [Tylenol] Med 11/20/19 17:40 Active 325 mg PO Q4H PRN Cefepime [Maxipime in D5W 2 GM/50 ML] 2 gm Med 11/20/19 17:55 Active Premix Bag 1 bag IV ONETIME Cefepime [Maxipime] 2 gm Med 11/20/19 18:00 Active Sodium Chloride 0.9% [Normal Saline] 50 ml IV DAILY Lactated Ringers [Ringers, Lactated] 1,000 ml Med 11/20/19 15:45 Active IV ASDIRECTED Lactated Ringers [Ringers, Lactated] 1,000 ml Med 11/20/19 18:00 Active IV ASDIRECTED Morphine Med 11/20/19 17:40 Active 2 mg IVPUSH Q4H PRN Ondansetron [Zofran ODT] Med 11/20/19 17:40 Active 4 mg PO Q6H PRN Ondansetron [Zofran] Med 11/20/19 17:40 Active 4 mg IV Q6H PRN Sodium Chloride 0.9% [Normal Saline] 1,000 ml Med 11/20/19 13:45 Active IV ASDIRECTED Sodium Chloride 0.9% [Saline Flush] Med 11/20/19 12:03 Active 10 ml FLUSH ASDIRECTED PRN Blood Culture x2 Reflex Set [OM.PC] Stat Ot 11/20/19 12:11 Ordered Blood Culture x2 Reflex Set [OM.PC] Stat Ot 11/20/19 17:41 Ordered Blood Culture x2 Reflex Set [OM.PC] Stat Ot 11/20/19 17:42 Ordered Peripheral IV Insertion Adult [OM.PC] Stat Ot 11/20/19 12:03 Ordered Severe Sepsis Onset Time [OM.PC] Stat Ot 11/20/19 17:41 Ordered Resuscitation Status Routine Resus Stat 11/20/19 17:40 Ordered Medication Orders Acetaminophen (Tylenol) 325 mg PO Q4H PRN PRN Reason: Pain (Mild 1-3)/fever Sodium Chloride (Normal Saline) 1,000 mls @ 999 mls/hr IV ASDIRECTED [facility] Last Infusion: 11/20/19 15:07 Dose: 999 mls/hr Admin: 11/20/19 14:28 Dose: 300 mls/hr Lactated Ringer's (Ringers, Lactated) 1,000 mls @ 100 mls/hr IV ASDIRECTED [facility] Last Infusion: 11/20/19 17:10 Dose: 999 mls/hr Admin: 11/20/19 15:51 Dose: 100 mls/hr Lactated Ringer's (Ringers, Lactated) 1,000 mls @ 125 mls/hr IV ASDIRECTED [facility] Cefepime HCl 2 gm/ Sodium (Chloride) 50 mls @ 100 mls/hr IV DAILY [facility] Last Admin: 11/20/19 17:56 Dose: Cefepime HCl 2 gm/ Premix 50 mls @ 100 mls/hr IV ONETIME ONE Stop: 11/20/19 18:24 Morphine Sulfate (Morphine) 2 mg IVPUSH Q4H PRN PRN Reason: Pain (severe 7-10) Stop: 11/21/19 17:43 Ondansetron HCl (Zofran Odt) 4 mg PO Q6H PRN PRN Reason: nausea, able to take PO Ondansetron HCl (Zofran) 4 mg IV Q6H PRN PRN Reason: Nausea/Vomiting Sodium Chloride (Saline Flush) 10 ml FLUSH ASDIRECTED PRN PRN Reason: Keep Vein Open Last Admin: 11/20/19 12:48 Dose: 10 ml Labs: Laboratory Tests 11/20/19 11/20/19 11/20/19 Range/Units 12:12 12:40 12:40 WBC 12.48 H (4.23-9.07) K/mm3 RBC 3.90 L (4.63-6.08) M/mm3 Hgb 14.2 (13.7-17.5) gm/dl Hct 42.2 (40.1-51.0) % MCV 108.2 H (79.0-92.2) fl MCH 36.4 H (25.7-32.2) pg MCHC 33.6 (32.2-35.5) g/dl RDW Std Deviation 50.9 H (35.1-43.9) fL Plt Count 322 D (163-337) K/mm3 MPV 10.8 (9.4-12.3) fl Neut % (Auto) 81.6 H (34.0-67.9) % Lymph % (Auto) 9.1 L (21.8-53.1) % Patrick % (Auto) 8.1 (5.3-12.2) % Eos % (Auto) 0.4 L (0.8-7.0) Baso % (Auto) 0.5 (0.1-1.2) % Neut # (Auto) 10.18 H (1.78-5.38) K/mm3 Lymph # (Auto) 1.14 L (1.32-3.57) K/mm3 Patrick # (Auto) 1.01 H (0.30-0.82) K/mm3 Eos # (Auto) 0.05 (0.04-0.54) K/mm3 Baso # (Auto) 0.06 (0.01-0.08) K/mm3 Manual Slide Review Abnormal smear PT (9.7-12.0) SECONDS INR APTT (22-31) SECONDS D-Dimer, Quantitative (0.19-0.50) mg/L Sodium 135 L (136-145) mEq/L Potassium 4.3 (3.5-5.1) mEq/L Chloride 99 (98-107) mEq/L Carbon Dioxide 26 (21-32) mEq/L Anion Gap 14.3 (5-15) BUN 13 (7-18) mg/dL Creatinine 1.4 H (0.7-1.3) mg/dL Est Cr Clr Drug Dosing 56.49 mL/min Estimated GFR (MDRD) 51 (>60) mL/min BUN/Creatinine Ratio 9.3 L (14-18) Glucose 134 H (80-115) mg/dL Lactic Acid (0.4-2.0) mmol/L Calcium 9.2 (8.5-10.1) mg/dL Magnesium (1.8-2.4) mg/dl Ferritin (26-388) ng/ml Total Bilirubin 1.0 (0.2-1.0) mg/dL AST 34 (15-37) U/L ALT 51 (16-63) U/L Alkaline Phosphatase 104 (46-116) U/L Lactate Dehydrogenase 231 H (85-227) U/L C-Reactive Protein 4.0 H* (<1.0) mg/dL NT-Pro-B Natriuret Pep (0-125) pg/mL Total Protein 8.0 (6.4-8.2) g/dl Albumin 3.3 L (3.4-5.0) g/dl Globulin 4.7 gm/dL Albumin/Globulin Ratio 0.7 L (1-2) Urine Color Lacey H (Yellow) Urine Appearance Cloudy H (Clear) Urine pH 7.0 (5.0-8.0) Ur Specific [place] 1.020 (1.005-1.030) Urine Protein 2+ H (Negative) Urine Glucose (UA) Negative (Negative) Urine Ketones Negative (Negative) Urine Occult Blood 3+ H (Negative) Urine Nitrite Positive H (Negative) Urine Bilirubin Negative (Negative) Urine Urobilinogen 0.2 (0.2-1.0) Ur Leukocyte Esterase 3+ H (Negative) Urine RBC >100 H (0-5) /hpf Urine WBC 50-75 H (0-5) /hpf Ur Squamous Epith Cells 0-5 (0-5) /hpf Amorphous Sediment Few H (NOT SEEN) /hpf Urine Bacteria Many H (FEW) /hpf Urine Mucus Few (FEW) /hpf 11/20/19 11/20/19 11/20/19 Range/Units 12:40 12:40 12:40 WBC (4.23-9.07) K/mm3 RBC (4.63-6.08) M/mm3 Hgb (13.7-17.5) gm/dl Hct (40.1-51.0) % MCV (79.0-92.2) fl MCH (25.7-32.2) pg MCHC (32.2-35.5) g/dl RDW Std Deviation (35.1-43.9) fL Plt Count (163-337) K/mm3 MPV (9.4-12.3) fl Neut % (Auto) (34.0-67.9) % Lymph % (Auto) (21.8-53.1) % Patrick % (Auto) (5.3-12.2) % Eos % (Auto) (0.8-7.0) Baso % (Auto) (0.1-1.2) % Neut # (Auto) (1.78-5.38) K/mm3 Lymph # (Auto) (1.32-3.57) K/mm3 Patrick # (Auto) (0.30-0.82) K/mm3 Eos # (Auto) (0.04-0.54) K/mm3 Baso # (Auto) (0.01-0.08) K/mm3 Manual Slide Review PT (9.7-12.0) SECONDS INR APTT (22-31) SECONDS D-Dimer, Quantitative 0.83 H (0.19-0.50) mg/L Sodium (136-145) mEq/L Potassium (3.5-5.1) mEq/L Chloride (98-107) mEq/L Carbon Dioxide (21-32) mEq/L Anion Gap (5-15) BUN (7-18) mg/dL Creatinine (0.7-1.3) mg/dL Est Cr Clr Drug Dosing mL/min Estimated GFR (MDRD) (>60) mL/min BUN/Creatinine Ratio (14-18) Glucose (80-115) mg/dL Lactic Acid (0.4-2.0) mmol/L Calcium (8.5-10.1) mg/dL Magnesium (1.8-2.4) mg/dl Ferritin 2321 H (26-388) ng/ml Total Bilirubin (0.2-1.0) mg/dL AST (15-37) U/L ALT (16-63) U/L Alkaline Phosphatase (46-116) U/L Lactate Dehydrogenase (85-227) U/L C-Reactive Protein (<1.0) mg/dL NT-Pro-B Natriuret Pep 657 H (0-125) pg/mL Total Protein (6.4-8.2) g/dl Albumin (3.4-5.0) g/dl Globulin gm/dL Albumin/Globulin Ratio (1-2) Urine Color (Yellow) Urine Appearance (Clear) Urine pH (5.0-8.0) Ur Specific [place] (1.005-1.030) Urine Protein (Negative) Urine Glucose (UA) (Negative) Urine Ketones (Negative) Urine Occult Blood (Negative) Urine Nitrite (Negative) Urine Bilirubin (Negative) Urine Urobilinogen (0.2-1.0) Ur Leukocyte Esterase (Negative) Urine RBC (0-5) /hpf Urine WBC (0-5) /hpf Ur Squamous Epith Cells (0-5) /hpf Amorphous Sediment (NOT SEEN) /hpf Urine Bacteria (FEW) /hpf Urine Mucus (FEW) /hpf 11/20/19 11/20/19 11/20/19 Range/Units 12:50 12:50 12:55 WBC (4.23-9.07) K/mm3 RBC (4.63-6.08) M/mm3 Hgb (13.7-17.5) gm/dl Hct (40.1-51.0) % MCV (79.0-92.2) fl MCH (25.7-32.2) pg MCHC (32.2-35.5) g/dl RDW Std Deviation (35.1-43.9) fL Plt Count (163-337) K/mm3 MPV (9.4-12.3) fl Neut % (Auto) (34.0-67.9) % Lymph % (Auto) (21.8-53.1) % Patrick % (Auto) (5.3-12.2) % Eos % (Auto) (0.8-7.0) Baso % (Auto) (0.1-1.2) % Neut # (Auto) (1.78-5.38) K/mm3 Lymph # (Auto) (1.32-3.57) K/mm3 Patrick # (Auto) (0.30-0.82) K/mm3 Eos # (Auto) (0.04-0.54) K/mm3 Baso # (Auto) (0.01-0.08) K/mm3 Manual Slide Review PT 12.4 H (9.7-12.0) SECONDS INR 1.15 APTT 30 (22-31) SECONDS D-Dimer, Quantitative (0.19-0.50) mg/L Sodium (136-145) mEq/L Potassium (3.5-5.1) mEq/L Chloride (98-107) mEq/L Carbon Dioxide (21-32) mEq/L Anion Gap (5-15) BUN (7-18) mg/dL Creatinine (0.7-1.3) mg/dL Est Cr Clr Drug Dosing mL/min Estimated GFR (MDRD) (>60) mL/min BUN/Creatinine Ratio (14-18) Glucose (80-115) mg/dL Lactic Acid 2.3 H* (0.4-2.0) mmol/L Calcium (8.5-10.1) mg/dL Magnesium 1.2 L (1.8-2.4) mg/dl Ferritin (26-388) ng/ml Total Bilirubin (0.2-1.0) mg/dL AST (15-37) U/L ALT (16-63) U/L Alkaline Phosphatase (46-116) U/L Lactate Dehydrogenase (85-227) U/L C-Reactive Protein (<1.0) mg/dL NT-Pro-B Natriuret Pep (0-125) pg/mL Total Protein (6.4-8.2) g/dl Albumin (3.4-5.0) g/dl Globulin gm/dL Albumin/Globulin Ratio (1-2) Urine Color (Yellow) Urine Appearance (Clear) Urine pH (5.0-8.0) Ur Specific [place] (1.005-1.030) Urine Protein (Negative) Urine Glucose (UA) (Negative) Urine Ketones (Negative) Urine Occult Blood (Negative) Urine Nitrite (Negative) Urine Bilirubin (Negative) Urine Urobilinogen (0.2-1.0) Ur Leukocyte Esterase (Negative) Urine RBC (0-5) /hpf Urine WBC (0-5) /hpf Ur Squamous Epith Cells (0-5) /hpf Amorphous Sediment (NOT SEEN) /hpf Urine Bacteria (FEW) /hpf Urine Mucus (FEW) /hpf 11/20/19 Range/Units 16:00 WBC (4.23-9.07) K/mm3 RBC (4.63-6.08) M/mm3 Hgb (13.7-17.5) gm/dl Hct (40.1-51.0) % MCV (79.0-92.2) fl MCH (25.7-32.2) pg MCHC (32.2-35.5) g/dl RDW Std Deviation (35.1-43.9) fL Plt Count (163-337) K/mm3 MPV (9.4-12.3) fl Neut % (Auto) (34.0-67.9) % Lymph % (Auto) (21.8-53.1) % Patrick % (Auto) (5.3-12.2) % Eos % (Auto) (0.8-7.0) Baso % (Auto) (0.1-1.2) % Neut # (Auto) (1.78-5.38) K/mm3 Lymph # (Auto) (1.32-3.57) K/mm3 Patrick # (Auto) (0.30-0.82) K/mm3 Eos # (Auto) (0.04-0.54) K/mm3 Baso # (Auto) (0.01-0.08) K/mm3 Manual Slide Review PT (9.7-12.0) SECONDS INR APTT (22-31) SECONDS D-Dimer, Quantitative (0.19-0.50) mg/L Sodium (136-145) mEq/L Potassium (3.5-5.1) mEq/L Chloride (98-107) mEq/L Carbon Dioxide (21-32) mEq/L Anion Gap (5-15) BUN (7-18) mg/dL Creatinine (0.7-1.3) mg/dL Est Cr Clr Drug Dosing mL/min Estimated GFR (MDRD) (>60) mL/min BUN/Creatinine Ratio (14-18) Glucose (80-115) mg/dL Lactic Acid 2.5 H* (0.4-2.0) mmol/L Calcium (8.5-10.1) mg/dL Magnesium (1.8-2.4) mg/dl Ferritin (26-388) ng/ml Total Bilirubin (0.2-1.0) mg/dL AST (15-37) U/L ALT (16-63) U/L Alkaline Phosphatase (46-116) U/L Lactate Dehydrogenase (85-227) U/L C-Reactive Protein (<1.0) mg/dL NT-Pro-B Natriuret Pep (0-125) pg/mL Total Protein (6.4-8.2) g/dl Albumin (3.4-5.0) g/dl Globulin gm/dL Albumin/Globulin Ratio (1-2) Urine Color (Yellow) Urine Appearance (Clear) Urine pH (5.0-8.0) Ur Specific [place] (1.005-1.030) Urine Protein (Negative) Urine Glucose (UA) (Negative) Urine Ketones (Negative) Urine Occult Blood (Negative) Urine Nitrite (Negative) Urine Bilirubin (Negative) Urine Urobilinogen (0.2-1.0) Ur Leukocyte Esterase (Negative) Urine RBC (0-5) /hpf Urine WBC (0-5) /hpf Ur Squamous Epith Cells (0-5) /hpf Amorphous Sediment (NOT SEEN) /hpf Urine Bacteria (FEW) /hpf Urine Mucus (FEW) /hpf Meds: Medications Generic Name Dose Route Start Last Admin Trade Name Freq PRN Reason Stop Dose Admin Acetaminophen 325 mg 11/20/19 17:40 Tylenol PO Q4H PRN Pain (Mild 1-3)/fever Sodium Chloride 1,000 mls @ 999 mls/hr 11/20/19 13:45 11/20/19 15:07 Normal Saline IV 999 mls/hr ASDIRECTED [facility] Infusion Lactated Ringer's 1,000 mls @ 100 mls/hr 11/20/19 15:45 11/20/19 17:10 Ringers, Lactated IV 999 mls/hr ASDIRECTED [facility] Infusion Lactated Ringer's 1,000 mls @ 125 mls/hr 11/20/19 18:00 Ringers, Lactated IV ASDIRECTED [facility] Cefepime HCl 2 gm/ Sodium 50 mls @ 100 mls/hr 11/20/19 18:00 11/20/19 17:56 Chloride IV Not Given DAILY HAL Cefepime HCl 2 gm/ Premix 50 mls @ 100 mls/hr 11/20/19 17:55 IV 11/20/19 18:24 ONETIME ONE Morphine Sulfate 2 mg 11/20/19 17:40 Morphine IVPUSH 11/21/19 17:43 Q4H PRN Pain (severe 7-10) Ondansetron HCl 4 mg 11/20/19 17:40 Zofran Odt PO Q6H PRN nausea, able to take PO Ondansetron HCl 4 mg 11/20/19 17:40 Zofran IV Q6H PRN Nausea/Vomiting Sodium Chloride 10 ml 11/20/19 12:03 11/20/19 12:48 Saline Flush FLUSH 10 ml ASDIRECTED PRN Administration Keep Vein Open Discontinued Medications Generic Name Dose Route Start Last Admin Trade Name Freq PRN Reason Stop Dose Admin Acetaminophen 325 mg 11/20/19 17:31 Tylenol PO 11/20/19 17:32 NOW ONE Diltiazem HCl 10 mg 11/20/19 12:29 11/20/19 12:47 Cardizem IVPUSH 11/20/19 12:30 10 mg ONETIME ONE Administration Diltiazem HCl 40 mg 11/20/19 17:04 11/20/19 17:13 Cardizem IVPUSH 11/20/19 17:05 Not Given ONETIME ONE Ceftriaxone Sodium 1 gm/ 100 mls @ 200 mls/hr 11/20/19 14:14 11/20/19 14:29 Sodium Chloride IV 11/20/19 14:43 200 mls/hr ONETIME ONE Administration Magnesium Sulfate 2 gm/ Premix 50 mls @ 25 mls/hr 11/20/19 14:21 11/20/19 15: 14 IV 11/20/19 16:20 25 mls/hr ONETIME ONE Administration Metoprolol Tartrate 50 mg 11/20/19 17:16 11/20/19 17:24 Lopressor PO 11/20/19 17:17 50 mg ONETIME ONE Administration - Re-Assessments/Exams Free Text/Narrative Re-Assessment/Exam: 11/20/19 1410 Patient heart rate improved into the upper 90s to low 100s after the 10 mg bolus of Cardizem. WBCs came back elevated at 12.48 with a left shift. Creatinine elevated at 1.4. Lactic acid elevated 2.3, LDH slightly elevated at 231, CRP elevated 4.0. Ferritin elevated at 2321, BNP slightly elevated at 657 , urinalysis is grossly positive for urinary tract infection with positive nitrates 3+ leukocyte esterase. Called and spoke to Dr. Garcia, on-call urologist at [facility] in [place]. He recommended that we do a noncontrast CT to ensure that the stent did not migrate and that it is still patent. If this is the case, he recommended medical management of the sepsis and then to keep his follow-up appointment on the as they would not remove a stone in a septic patient anyway. I will complete the CT of the abdomen pelvis. Once results are confirmed I will speak with the hospitalist to discuss admission. I have ordered a 1 L bolus of normal saline, 2 g of mag, and Rocephin 1 g to be given now. 11/20/19 16:00 CT of the abdomen pelvis shows a left ureteral stent with a possible stone proximal left ureteral stent. There is no hydronephrosis seen of either kidney. Based on this information and information provided by Dr. Garcia, I will discuss admission to the hospital here with our hospitalist for medical management of urosepsis. Contacted Dr. Keen. She will be over to discuss the patient. 11/20/19 17:11 Dr. Keen was here to see the patient. He will be admitted. Departure - Departure Time of Disposition: 17:11 Disposition: Admitted As Inpatient 68 Condition: Fair Clinical Impression: Nephrolithiasis, UTI (urinary tract infection) Sepsis Qualifiers: Sepsis type: sepsis due to unspecified organism Sepsis acute organ dysfunction status: unspecified Qualified Code(s): A41.9 - Sepsis, unspecified organism - Discharge Information Referrals: Pop Pittman PA-C [Primary Care Provider] - Forms: ED Department Discharge Sepsis Event Note - Evaluation Sepsis Screening Result: Possible Sepsis Risk - Focused Exam Vital Signs: Vital Signs Temp Pulse Pulse Resp BP BP Pulse Ox 11/20/19 17:26 102.3 F H 20 134/61 95 11/20/19 17:24 98 134/61 11/20/19 11:59 98.9 F 94 18 126/83 94 L Date Exam was Performed: 11/20/19 Time Exam was Performed: 18:05 - My Orders Last 24 Hours: My Active Orders 11/20/19 12:03 Peripheral IV Care [RC] . DIRECTED Sodium Chloride 0.9% [Saline Flush] 10 ml FLUSH ASDIRECTED PRN Peripheral IV Insertion Adult [OM.PC] Stat 11/20/19 12:07 EKG Documentation Completion [RC] STAT 11/20/19 12:11 Blood Culture x2 Reflex Set [OM.PC] Stat 11/20/19 12:40 CULTURE BLOOD [BC] Stat 11/20/19 12:55 CULTURE BLOOD [BC] Stat 11/20/19 13:20 CORONAVIRUS COVID-19 PCR PHL [MREF] Routine CULTURE URINE [RM] Stat 11/20/19 13:45 Sodium Chloride 0.9% [Normal Saline] 1,000 ml IV ASDIRECTED 11/20/19 15:45 Lactated Ringers [Ringers, Lactated] 1,000 ml IV ASDIRECTED 11/20/19 16:50 REFLEX LACTIC ACID YES OR NO [CHEM] Routine - Assessment/Plan Last 24 Hours: My Active Orders 11/20/19 12:03 Peripheral IV Care [RC] . DIRECTED Sodium Chloride 0.9% [Saline Flush] 10 ml FLUSH ASDIRECTED PRN Peripheral IV Insertion Adult [OM.PC] Stat 11/20/19 12:07 EKG Documentation Completion [RC] STAT 11/20/19 12:11 Blood Culture x2 Reflex Set [OM.PC] Stat 11/20/19 12:40 CULTURE BLOOD [BC] Stat 11/20/19 12:55 CULTURE BLOOD [BC] Stat 11/20/19 13:20 CORONAVIRUS COVID-19 PCR PHL [MREF] Routine CULTURE URINE [RM] Stat 11/20/19 13:45 Sodium Chloride 0.9% [Normal Saline] 1,000 ml IV ASDIRECTED 11/20/19 15:45 Lactated Ringers [Ringers, Lactated] 1,000 ml IV ASDIRECTED 11/20/19 16:50 REFLEX LACTIC ACID YES OR NO [CHEM] Routine
--- NOTE | 2019-11-20 13:04 | CR ---
Chest: Portable view of the chest was obtained. Comparison: Prior chest x-ray of 11/03/19. Heart is enlarged. Upper mediastinum is normal. Lungs are clear with no acute parenchymal change. Bony structures are grossly intact. Impression: 1. Cardiomegaly. 2. Nothing acute is appreciated. Diagnostic code #2 This report was dictated in MDT
[2019-11-20] MEDS ORDERED: Sodium Chloride 0.9% 1,000 ML IV SCH (13:45)
[2019-11-20] MEDS ORDERED: cefTRIAXone 1 GM in Sodium Chloride 0.9% 100 ML IV ONE (14:14)
[2019-11-20] MEDS ORDERED: Magnesium Sulfate/Water 2 GM in Premix Bag 1 BAG IV ONE (14:21)
--- NOTE | 2019-11-20 15:20 | CT ---
CT abdomen and pelvis Technique: Multiple axial sections were obtained from above the dome of the diaphragm inferiorly through the pubic symphysis. Intravenous and oral contrast not utilized. Comparison: Prior CT abdomen and pelvis study of 11/03/19. Findings: Visualized lung bases show nothing acute. Fatty infiltration is seen within the liver. Liver is also mildly generous in size. Gallbladder contains no calcified gallstones. Spleen appears within normal limits. Adrenal glands appear within normal limits. Pancreas is unremarkable. Gallbladder contains no calcified gallstones. Aorta shows atherosclerotic calcification which continues into the iliac vessels without aneurysm. Left ureteral stent is seen. Proximal and lies within the left renal pelvis and distal end lies within the bladder. Possible stone next to the left ureteral stent being seen proximally. No other abnormal calcifications are seen within the kidneys or within the ureters. Slight haziness around the left kidney is seen which appears to be fairly stable from previous exam. No mesenteric abnormalities are seen. No pelvic mass or adenopathy is seen. No free fluid or inflammatory change is seen. Bone window settings were reviewed which shows scattered degenerative change within the spine. Impression: 1. Left ureteral stent. Possible stone next to the proximal left ureteral stent. 2. No hydronephrosis is seen of either kidney. No other abnormal calcifications are seen within the kidneys. 3. Fatty infiltration within the liver. 4. Nothing acute is appreciated. Diagnostic code #2 Study was dictated in [facility]
[2019-11-20] MEDS ORDERED: Lactated Ringers 1,000 ML IV SCH ×2 (15:45→18:00)
--- NOTE | 2019-11-20 16:54 | PCM.HP.2 ---
H&P History of Present Illness - General Date of Service: 11/20/19 - History of Present Illness Initial Comments - Free Text/Narative: This is a 64 year old male with past medical history of recent UTI and 4 day admission in [place] for obstructive UTI 2/2 nephrolithiasis on L side s/p stent placement by urology. Discharged around 1 week ago, patient states he was back in usual health until this AM when he started feeling some chills for which he measured his temperature and found it to be 102 for which he came in to be evaluated since that is what he was told upon discharge from [facility]. - Related Data Allergies/Adverse Reactions: Allergies Allergy/AdvReac Type Severity Reaction Status Date / Time lisinopril AdvReac Cough Verified 11/20/19 15:00 Home Medications: Home Meds Furosemide 40 mg PO BID 01/18/19 [History] Spironolactone [Aldactone] 25 mg PO DAILY 01/18/19 [History] allopurinoL [Zyloprim] 200 mg PO DAILY 01/18/19 [History] Apixaban [Eliquis] 5 mg PO BID 11/03/19 [History] Metoprolol Tartrate [Lopressor] 50 mg PO Q12H 11/03/19 [History] Diltiazem HCl [Diltiazem 24Hr ER] 240 mg PO DAILY 11/20/19 [History] Past Medical History Cardiovascular History: Reports: Afib, Heart Failure, Hypertension Respiratory History: Reports: Sleep Apnea Musculoskeletal History: Reports: Gout - Past Surgical History Cardiovascular Surgical History: Reports: None Respiratory Surgical History: Reports: None Musculoskeletal Surgical History: Reports: None Social & Family History - Family History Family Medical History: Noncontributory - Tobacco Use Smoking Status *Q: Never Smoker Second Hand Smoke Exposure: No - Caffeine Use Caffeine Use: Reports: Coffee - Recreational Drug Use Recreational Drug Use: No - Living Situation & Occupation Living situation: Reports: Occupation: Unemployed H&P Review of Systems - Review of Systems: Review Of Systems: See Below General: Reports: Fever, Chills. Denies: Malaise, Weakness, Fatigue, Night Sweats, Diaphoresis, Decreased Appetite HEENT: Denies: Rhinitis, Post Nasal Drip, Sinus Congestion, Sore Throat, Vertigo , Visual Changes Pulmonary: Denies: Shortness of Breath, Wheezing, Pleuritic Chest Pain, Cough, Sputum Cardiovascular: Denies: Chest Pain, Palpitations, Dyspnea on Exertion, Orthopnea , PND, Edema, Lightheadedness, Syncope Gastrointestinal: Denies: Abdominal Pain, Anorexia, Constipation, Diarrhea, Decreased Appetite, Difficulty Swallowing, Distension, Nausea, Vomiting Genitourinary: Denies: Dysuria, Frequency, Burning, Pain, Urgency, Incontinence , Hematuria, Discharge, Retention, Flank Pain Musculoskeletal: Denies: Joint Pain, Joint Swelling, Muscle Pain, Muscle Stiffness Skin: Denies: Cyanosis, Jaundice, Mottled, Pallor, Diaphoresis, Dryness, Bruising, Pruritis, Rash, Erythema Psychiatric: Denies: Confusion, Depression, Mood Lability, Anxiety Neurological: Denies: Dizziness, Headache, Numbness, Paresthesia Hematologic/Lymphatic: Denies: Anemia, Easy Bleeding, Easy Bruising Exam - Exam Exam: See Below - Vital Signs Vital Signs: Last Vital Signs Temp 98.9 F 11/20/19 11:59 Pulse 94 11/20/19 11:59 Resp 18 11/20/19 11:59 BP 126/83 11/20/19 11:59 Pulse Ox 94 L 11/20/19 11:59 Weight: 173.726 kg - Exam Quality Assessment: Other (confounded by body habitus) General: Alert, Oriented, Cooperative. No: Mild Distress HEENT: Conjunctiva Clear, EACs Clear, EOMI, Mucosa Moist & [place], Pupils Equal, Pupils Reactive Neck: Supple Lungs: Decreased Breath Sounds. No: Crackles, Rales, Rhonchi, Rub, Stridor, Wheezing Cardiovascular: Irregular Rhythm, Tachycardia. No: Systolic Murmur, Diastolic Murmur, Rubs, Gallop/S3, Gallop/S4 GI/Abdominal Exam: Distended. No: Guarding, Rigid, Rebound, Tender Back Exam: No: CVA Tenderness (L), CVA Tenderness (R) Extremities: Pedal Edema - Patient Data Result Diagrams: 11/20/19 12:40 11/20/19 12:40 Sepsis Event Note - Evaluation Sepsis Screening Result: Possible Sepsis Risk Current Stage of Sepsis: Sepsis Possible Source of Sepsis: Genitourinary - Focused Exam Sepsis Event Note Statement: Focused Sepsis Exam Completed Vital Signs: Vital Signs Temp Pulse Resp BP Pulse Ox 11/20/19 11:59 98.9 F 94 18 126/83 94 L Respiratory Effort Without Exertion: Other (see below) (none) Heart Sounds: Other (see below) (arrhythmic and asynchronic with pulse) Capillary Refill, Detail: Less than/Equal to (</=) 2 Seconds Pulse Description: 2+ Normal Peripheral Pulse Location: Radial Skin Exam (Focused Sepsis): Normal Turgor, Pale Date Exam was Performed: 11/20/19 Time Exam was Performed: 17:26 - Problem List (1) Morbid obesity SNOMED Code(s): 571841666 ICD Code: E66.01 - MORBID (SEVERE) OBESITY DUE TO EXCESS CALORIES Status: Acute Current Visit: Yes (2) S/P ureteral stent placement SNOMED Code(s): 359537893, 810574405 ICD Code: Z96.0 - PRESENCE OF UROGENITAL IMPLANTS Status: Acute Current Visit: Yes (3) Nephrolithiasis SNOMED Code(s): 23042186 ICD Code: N20.0 - CALCULUS OF KIDNEY Status: Acute Current Visit: Yes (4) H/O pyelonephritis SNOMED Code(s): 445627874 ICD Code: Z87.448 - PERSONAL HISTORY OF OTHER DISEASES OF URINARY SYSTEM Status: Acute Current Visit: Yes (5) Hypertension SNOMED Code(s): 77684003 ICD Code: I10 - ESSENTIAL (PRIMARY) HYPERTENSION Status: Acute Current Visit: Yes (6) Obstructive sleep apnea SNOMED Code(s): 79792383 ICD Code: G47.33 - OBSTRUCTIVE SLEEP APNEA (ADULT) (PEDIATRIC) Status: Acute Current Visit: Yes (7) Gout SNOMED Code(s): 02108511 ICD Code: M10.9 - GOUT, UNSPECIFIED Status: Acute Current Visit: Yes (8) UTI (urinary tract infection) SNOMED Code(s): 86487744 ICD Code: N39.0 - URINARY TRACT INFECTION, SITE NOT SPECIFIED Status: Acute Current Visit: Yes (9) Sepsis SNOMED Code(s): 18022281 ICD Code: A41.9 - SEPSIS, UNSPECIFIED ORGANISM Status: Acute Current Visit: Yes (10) Chronic atrial fibrillation with RVR SNOMED Code(s): 355748737, 896899740295848 ICD Code: I48.20 - CHRONIC ATRIAL FIBRILLATION, UNSPECIFIED Status: Acute Current Visit: No (11) Lactic acidosis SNOMED Code(s): 11826429 ICD Code: E87.2 - ACIDOSIS Status: Acute Current Visit: No Problem List Initiated/Reviewed/Updated: Yes Assessment/Plan Comment:: ASSESSMENT BY DAY DAY OF ADMISSION - New onset fever - recent admission to [facility] for complicated UTI 2/2 left nephrolithiasis s/ p stent placement - Treated with Vancomycin and Cefepime and transitioned to Unasyn prior to discharge, completed 7 days of therapy - Scheduled to f/u with urology, Dr. Mistry/Cost on 11/27 - Sepsis: Urinary source + elevated lactic acid + leukocytosis + tachycardia - IBW is 75kg - Goal IVF if lactate above 4 or hypotension is 2260ml - Given 1L NS in ED - Recent bacteremia 2/2 _, no follow up cultures obtained - HR on admission 125x', given IV Diltiazem Sepsis 2/2 UTI (urinary tract infection) S/P left ureteral stent placement Nephrolithiasis H/O recent pyelonephritis - Start Cefepime - F/U cultures from ED, blood + urine - Repeat lactic acid every 3 hours until negative - 1L LR, maintenance at 125ml/hr - Request records for echocardiogram Chronic atrial fibrillation with RVR - Home diltiazem and metoprolol - Telemetry during admission Hypertension - Hold home BP for now Obstructive sleep apnea - Continue CPAP at home settings (pressure 20) PROPHYLAXIS DVT- Continue home Eliquis GI- not indicated CODE STATUS: FULL CODE DISPOSITION: Patient will be admitted for IV antibiotics and sepsis work up. SOCIAL Lives in [place] with Independent at home - Mortality Measure Prognosis:: Good
[2019-11-20] MEDS ORDERED: Metoprolol Tartrate 50 MG Tab PO ONE (17:16)
[2019-11-20] MEDS ORDERED: Acetaminophen 325 MG Tab PO ONE (17:31)
[2019-11-20] MEDS ORDERED: Acetaminophen 325 MG Tab PO PRN (17:40)
[2019-11-20] MEDS ORDERED: Ondansetron 4 MG/2 ML SDV IV PRN (17:40)
[2019-11-20] MEDS ORDERED: Morphine 2 MG/ML SYRINGE IVPUSH PRN (17:40)
[2019-11-20] MEDS ORDERED: Ondansetron 4 MG Tab.DIS PO PRN (17:40)
[2019-11-20] MEDS ORDERED: Cefepime 2 GM in Premix Bag 1 BAG IV ONE (17:55)
[2019-11-20] MEDS ORDERED: Cefepime 2 GM in Sodium Chloride 0.9% 50 ML IV SCH (18:00)
[2019-11-21] MEDS ORDERED: Lactated Ringers 500 ML IV ONE (00:09)
[2019-11-21] MEDS ORDERED: Diltiazem 240 MG Cap.ER PO ONE (00:13)
[2019-11-21] MEDS ORDERED: Metoprolol Tartrate 50 MG Tab PO ONE (00:13)
[2019-11-21] MEDS: Lactated Ringers 1,000 ML IV SCH ×3 (05:06→21:27)
[2019-11-21] MEDS: Cefepime 2 GM in Premix Bag 1 BAG IV SCH ×2 (09:13→20:33)
[2019-11-21] MEDS: Diltiazem 240 MG Cap.ER PO SCH (11:10)
[2019-11-21] MEDS: Apixaban 5 MG Tab PO SCH ×2 (11:10→20:33)
[2019-11-21] MEDS: Allopurinol 100 MG Tab PO SCH (11:10)
[2019-11-21] MEDS: Metoprolol Tartrate 25 MG Tab PO SCH ×2 (11:11→21:30)
--- NOTE | 2019-11-21 12:02 | PCM.PN ---
- General Info Date of Service: 11/21/19 Functional Status: Reports: Pain Controlled, Tolerating Diet, Ambulating, Urinating. Denies: New Symptoms - Review of Systems General: Reports: No Symptoms. Denies: Fever, Weakness, Fatigue, Malaise, Chills HEENT: Reports: No Symptoms. Denies: Headaches, Sore Throat Pulmonary: Reports: No Symptoms. Denies: Shortness of Breath, Cough, Sputum, Wheezing Cardiovascular: Reports: No Symptoms. Denies: Chest Pain, Palpitations, Edema Gastrointestinal: Reports: No Symptoms. Denies: Abdominal Pain, Constipation, Diarrhea, Nausea, Vomiting Genitourinary: Reports: No Symptoms. Denies: Pain Musculoskeletal: Reports: No Symptoms. Denies: Neck Pain Skin: Reports: No Symptoms. Denies: Cyanosis Neurological: Reports: No Symptoms. Denies: Confusion, Difficulty Walking, Gait Disturbance Psychiatric: Reports: No Symptoms - Patient Data Vitals - Most Recent: Last Vital Signs Temp 97.7 F 11/21/19 11:02 Pulse 107 H 11/21/19 11:11 Resp 20 11/21/19 11:02 BP 98/58 L 11/21/19 11:11 Pulse Ox 94 L 11/21/19 11:02 Weight - Most Recent: 385 lb I&O - Last 24 Hours: Intake & Output 11/20/19 11/21/19 11/21/19 22:59 06:59 14:59 Intake Total 30 1728 Output Total 200 450 Balance -170 1278 Lab Results Last 24 Hours: Laboratory Results - last 24 hr 11/20/19 11/20/19 11/20/19 Range/Units 12:12 12:40 12:40 WBC 12.48 H (4.23-9.07) K/mm3 RBC 3.90 L (4.63-6.08) M/mm3 Hgb 14.2 (13.7-17.5) gm/dl Hct 42.2 (40.1-51.0) % MCV 108.2 H (79.0-92.2) fl MCH 36.4 H (25.7-32.2) pg MCHC 33.6 (32.2-35.5) g/dl RDW Std Deviation 50.9 H (35.1-43.9) fL Plt Count 322 D (163-337) K/mm3 MPV 10.8 (9.4-12.3) fl Neut % (Auto) 81.6 H (34.0-67.9) % Lymph % (Auto) 9.1 L (21.8-53.1) % [place] % (Auto) 8.1 (5.3-12.2) % Eos % (Auto) 0.4 L (0.8-7.0) Baso % (Auto) 0.5 (0.1-1.2) % Neut # (Auto) 10.18 H (1.78-5.38) K/mm3 Lymph # (Auto) 1.14 L (1.32-3.57) K/mm3 [place] # (Auto) 1.01 H (0.30-0.82) K/mm3 Eos # (Auto) 0.05 (0.04-0.54) K/mm3 Baso # (Auto) 0.06 (0.01-0.08) K/mm3 Manual Slide Review Abnormal smear PT (9.7-12.0) SECONDS INR APTT (22-31) SECONDS D-Dimer, Quantitative (0.19-0.50) mg/L Sodium 135 L (136-145) mEq/L Potassium 4.3 (3.5-5.1) mEq/L Chloride 99 (98-107) mEq/L Carbon Dioxide 26 (21-32) mEq/L Anion Gap 14.3 (5-15) BUN 13 (7-18) mg/dL Creatinine 1.4 H (0.7-1.3) mg/dL Est Cr Clr Drug Dosing 56.49 mL/min Estimated GFR (MDRD) 51 (>60) mL/min BUN/Creatinine Ratio 9.3 L (14-18) Glucose 134 H (80-115) mg/dL Lactic Acid (0.4-2.0) mmol/L Calcium 9.2 (8.5-10.1) mg/dL Phosphorus (2.6-4.7) mg/dL Magnesium (1.8-2.4) mg/dl Ferritin (26-388) ng/ml Total Bilirubin 1.0 (0.2-1.0) mg/dL AST 34 (15-37) U/L ALT 51 (16-63) U/L Alkaline Phosphatase 104 (46-116) U/L Lactate Dehydrogenase 231 H (85-227) U/L C-Reactive Protein 4.0 H* (<1.0) mg/dL NT-Pro-B Natriuret Pep (0-125) pg/mL Total Protein 8.0 (6.4-8.2) g/dl Albumin 3.3 L (3.4-5.0) g/dl Globulin 4.7 gm/dL Albumin/Globulin Ratio 0.7 L (1-2) Urine Color Lacey H (Yellow) Urine Appearance Cloudy H (Clear) Urine pH 7.0 (5.0-8.0) Ur Specific [place] 1.020 (1.005-1.030) Urine Protein 2+ H (Negative) Urine Glucose (UA) Negative (Negative) Urine Ketones Negative (Negative) Urine Occult Blood 3+ H (Negative) Urine Nitrite Positive H (Negative) Urine Bilirubin Negative (Negative) Urine Urobilinogen 0.2 (0.2-1.0) Ur Leukocyte Esterase 3+ H (Negative) Urine RBC >100 H (0-5) /hpf Urine WBC 50-75 H (0-5) /hpf Ur Squamous Epith Cells 0-5 (0-5) /hpf Amorphous Sediment Few H (NOT SEEN) /hpf Urine Bacteria Many H (FEW) /hpf Urine Mucus Few (FEW) /hpf 11/20/19 11/20/19 11/20/19 Range/Units 12:40 12:40 12:40 WBC (4.23-9.07) K/mm3 RBC (4.63-6.08) M/mm3 Hgb (13.7-17.5) gm/dl Hct (40.1-51.0) % MCV (79.0-92.2) fl MCH (25.7-32.2) pg MCHC (32.2-35.5) g/dl RDW Std Deviation (35.1-43.9) fL Plt Count (163-337) K/mm3 MPV (9.4-12.3) fl Neut % (Auto) (34.0-67.9) % Lymph % (Auto) (21.8-53.1) % [place] % (Auto) (5.3-12.2) % Eos % (Auto) (0.8-7.0) Baso % (Auto) (0.1-1.2) % Neut # (Auto) (1.78-5.38) K/mm3 Lymph # (Auto) (1.32-3.57) K/mm3 [place] # (Auto) (0.30-0.82) K/mm3 Eos # (Auto) (0.04-0.54) K/mm3 Baso # (Auto) (0.01-0.08) K/mm3 Manual Slide Review PT (9.7-12.0) SECONDS INR APTT (22-31) SECONDS D-Dimer, Quantitative 0.83 H (0.19-0.50) mg/L Sodium (136-145) mEq/L Potassium (3.5-5.1) mEq/L Chloride (98-107) mEq/L Carbon Dioxide (21-32) mEq/L Anion Gap (5-15) BUN (7-18) mg/dL Creatinine (0.7-1.3) mg/dL Est Cr Clr Drug Dosing mL/min Estimated GFR (MDRD) (>60) mL/min BUN/Creatinine Ratio (14-18) Glucose (80-115) mg/dL Lactic Acid (0.4-2.0) mmol/L Calcium (8.5-10.1) mg/dL Phosphorus (2.6-4.7) mg/dL Magnesium (1.8-2.4) mg/dl Ferritin 2321 H (26-388) ng/ml Total Bilirubin (0.2-1.0) mg/dL AST (15-37) U/L ALT (16-63) U/L Alkaline Phosphatase (46-116) U/L Lactate Dehydrogenase (85-227) U/L C-Reactive Protein (<1.0) mg/dL NT-Pro-B Natriuret Pep 657 H (0-125) pg/mL Total Protein (6.4-8.2) g/dl Albumin (3.4-5.0) g/dl Globulin gm/dL Albumin/Globulin Ratio (1-2) Urine Color (Yellow) Urine Appearance (Clear) Urine pH (5.0-8.0) Ur Specific [place] (1.005-1.030) Urine Protein (Negative) Urine Glucose (UA) (Negative) Urine Ketones (Negative) Urine Occult Blood (Negative) Urine Nitrite (Negative) Urine Bilirubin (Negative) Urine Urobilinogen (0.2-1.0) Ur Leukocyte Esterase (Negative) Urine RBC (0-5) /hpf Urine WBC (0-5) /hpf Ur Squamous Epith Cells (0-5) /hpf Amorphous Sediment (NOT SEEN) /hpf Urine Bacteria (FEW) /hpf Urine Mucus (FEW) /hpf 11/20/19 11/20/19 11/20/19 Range/Units 12:50 12:50 12:55 WBC (4.23-9.07) K/mm3 RBC (4.63-6.08) M/mm3 Hgb (13.7-17.5) gm/dl Hct (40.1-51.0) % MCV (79.0-92.2) fl MCH (25.7-32.2) pg MCHC (32.2-35.5) g/dl RDW Std Deviation (35.1-43.9) fL Plt Count (163-337) K/mm3 MPV (9.4-12.3) fl Neut % (Auto) (34.0-67.9) % Lymph % (Auto) (21.8-53.1) % [place] % (Auto) (5.3-12.2) % Eos % (Auto) (0.8-7.0) Baso % (Auto) (0.1-1.2) % Neut # (Auto) (1.78-5.38) K/mm3 Lymph # (Auto) (1.32-3.57) K/mm3 [place] # (Auto) (0.30-0.82) K/mm3 Eos # (Auto) (0.04-0.54) K/mm3 Baso # (Auto) (0.01-0.08) K/mm3 Manual Slide Review PT 12.4 H (9.7-12.0) SECONDS INR 1.15 APTT 30 (22-31) SECONDS D-Dimer, Quantitative (0.19-0.50) mg/L Sodium (136-145) mEq/L Potassium (3.5-5.1) mEq/L Chloride (98-107) mEq/L Carbon Dioxide (21-32) mEq/L Anion Gap (5-15) BUN (7-18) mg/dL Creatinine (0.7-1.3) mg/dL Est Cr Clr Drug Dosing mL/min Estimated GFR (MDRD) (>60) mL/min BUN/Creatinine Ratio (14-18) Glucose (80-115) mg/dL Lactic Acid 2.3 H* (0.4-2.0) mmol/L Calcium (8.5-10.1) mg/dL Phosphorus (2.6-4.7) mg/dL Magnesium 1.2 L (1.8-2.4) mg/dl Ferritin (26-388) ng/ml Total Bilirubin (0.2-1.0) mg/dL AST (15-37) U/L ALT (16-63) U/L Alkaline Phosphatase (46-116) U/L Lactate Dehydrogenase (85-227) U/L C-Reactive Protein (<1.0) mg/dL NT-Pro-B Natriuret Pep (0-125) pg/mL Total Protein (6.4-8.2) g/dl Albumin (3.4-5.0) g/dl Globulin gm/dL Albumin/Globulin Ratio (1-2) Urine Color (Yellow) Urine Appearance (Clear) Urine pH (5.0-8.0) Ur Specific [place] (1.005-1.030) Urine Protein (Negative) Urine Glucose (UA) (Negative) Urine Ketones (Negative) Urine Occult Blood (Negative) Urine Nitrite (Negative) Urine Bilirubin (Negative) Urine Urobilinogen (0.2-1.0) Ur Leukocyte Esterase (Negative) Urine RBC (0-5) /hpf Urine WBC (0-5) /hpf Ur Squamous Epith Cells (0-5) /hpf Amorphous Sediment (NOT SEEN) /hpf Urine Bacteria (FEW) /hpf Urine Mucus (FEW) /hpf 11/20/19 11/20/19 11/20/19 Range/Units 16:00 18:21 22:01 WBC (4.23-9.07) K/mm3 RBC (4.63-6.08) M/mm3 Hgb (13.7-17.5) gm/dl Hct (40.1-51.0) % MCV (79.0-92.2) fl MCH (25.7-32.2) pg MCHC (32.2-35.5) g/dl RDW Std Deviation (35.1-43.9) fL Plt Count (163-337) K/mm3 MPV (9.4-12.3) fl Neut % (Auto) (34.0-67.9) % Lymph % (Auto) (21.8-53.1) % [place] % (Auto) (5.3-12.2) % Eos % (Auto) (0.8-7.0) Baso % (Auto) (0.1-1.2) % Neut # (Auto) (1.78-5.38) K/mm3 Lymph # (Auto) (1.32-3.57) K/mm3 [place] # (Auto) (0.30-0.82) K/mm3 Eos # (Auto) (0.04-0.54) K/mm3 Baso # (Auto) (0.01-0.08) K/mm3 Manual Slide Review PT (9.7-12.0) SECONDS INR APTT (22-31) SECONDS D-Dimer, Quantitative (0.19-0.50) mg/L Sodium (136-145) mEq/L Potassium (3.5-5.1) mEq/L Chloride (98-107) mEq/L Carbon Dioxide (21-32) mEq/L Anion Gap (5-15) BUN (7-18) mg/dL Creatinine (0.7-1.3) mg/dL Est Cr Clr Drug Dosing mL/min Estimated GFR (MDRD) (>60) mL/min BUN/Creatinine Ratio (14-18) Glucose (80-115) mg/dL Lactic Acid 2.5 H* 2.1 H* 2.1 H* (0.4-2.0) mmol/L Calcium (8.5-10.1) mg/dL Phosphorus (2.6-4.7) mg/dL Magnesium (1.8-2.4) mg/dl Ferritin (26-388) ng/ml Total Bilirubin (0.2-1.0) mg/dL AST (15-37) U/L ALT (16-63) U/L Alkaline Phosphatase (46-116) U/L Lactate Dehydrogenase (85-227) U/L C-Reactive Protein (<1.0) mg/dL NT-Pro-B Natriuret Pep (0-125) pg/mL Total Protein (6.4-8.2) g/dl Albumin (3.4-5.0) g/dl Globulin gm/dL Albumin/Globulin Ratio (1-2) Urine Color (Yellow) Urine Appearance (Clear) Urine pH (5.0-8.0) Ur Specific [place] (1.005-1.030) Urine Protein (Negative) Urine Glucose (UA) (Negative) Urine Ketones (Negative) Urine Occult Blood (Negative) Urine Nitrite (Negative) Urine Bilirubin (Negative) Urine Urobilinogen (0.2-1.0) Ur Leukocyte Esterase (Negative) Urine RBC (0-5) /hpf Urine WBC (0-5) /hpf Ur Squamous Epith Cells (0-5) /hpf Amorphous Sediment (NOT SEEN) /hpf Urine Bacteria (FEW) /hpf Urine Mucus (FEW) /hpf 11/21/19 11/21/19 11/21/19 Range/Units 00:55 03:49 03:49 WBC 13.75 H (4.23-9.07) K/mm3 RBC 3.16 L (4.63-6.08) M/mm3 Hgb 11.5 L D (13.7-17.5) gm/dl Hct 34.4 L (40.1-51.0) % MCV 108.9 H (79.0-92.2) fl MCH 36.4 H (25.7-32.2) pg MCHC 33.4 (32.2-35.5) g/dl RDW Std Deviation 51.0 H (35.1-43.9) fL Plt Count 228 D (163-337) K/mm3 MPV 10.7 (9.4-12.3) fl Neut % (Auto) 78.7 H (34.0-67.9) % Lymph % (Auto) 10.8 L (21.8-53.1) % [place] % (Auto) 9.2 (5.3-12.2) % Eos % (Auto) 0.6 L (0.8-7.0) Baso % (Auto) 0.4 (0.1-1.2) % Neut # (Auto) 10.84 H (1.78-5.38) K/mm3 Lymph # (Auto) 1.48 (1.32-3.57) K/mm3 [place] # (Auto) 1.26 H (0.30-0.82) K/mm3 Eos # (Auto) 0.08 (0.04-0.54) K/mm3 Baso # (Auto) 0.05 (0.01-0.08) K/mm3 Manual Slide Review Abnormal smear PT (9.7-12.0) SECONDS INR APTT (22-31) SECONDS D-Dimer, Quantitative (0.19-0.50) mg/L Sodium 135 L (136-145) mEq/L Potassium 3.8 (3.5-5.1) mEq/L Chloride 102 (98-107) mEq/L Carbon Dioxide 25 (21-32) mEq/L Anion Gap 11.8 (5-15) BUN 17 (7-18) mg/dL Creatinine 1.4 H (0.7-1.3) mg/dL Est Cr Clr Drug Dosing 56.49 mL/min Estimated GFR (MDRD) 51 (>60) mL/min BUN/Creatinine Ratio 12.1 L (14-18) Glucose 133 H (80-115) mg/dL Lactic Acid 2.4 H* (0.4-2.0) mmol/L Calcium 8.1 L (8.5-10.1) mg/dL Phosphorus 3.2 (2.6-4.7) mg/dL Magnesium 1.9 (1.8-2.4) mg/dl Ferritin (26-388) ng/ml Total Bilirubin (0.2-1.0) mg/dL AST (15-37) U/L ALT (16-63) U/L Alkaline Phosphatase (46-116) U/L Lactate Dehydrogenase (85-227) U/L C-Reactive Protein (<1.0) mg/dL NT-Pro-B Natriuret Pep (0-125) pg/mL Total Protein (6.4-8.2) g/dl Albumin (3.4-5.0) g/dl Globulin gm/dL Albumin/Globulin Ratio (1-2) Urine Color (Yellow) Urine Appearance (Clear) Urine pH (5.0-8.0) Ur Specific [place] (1.005-1.030) Urine Protein (Negative) Urine Glucose (UA) (Negative) Urine Ketones (Negative) Urine Occult Blood (Negative) Urine Nitrite (Negative) Urine Bilirubin (Negative) Urine Urobilinogen (0.2-1.0) Ur Leukocyte Esterase (Negative) Urine RBC (0-5) /hpf Urine WBC (0-5) /hpf Ur Squamous Epith Cells (0-5) /hpf Amorphous Sediment (NOT SEEN) /hpf Urine Bacteria (FEW) /hpf Urine Mucus (FEW) /hpf 11/21/19 Range/Units 03:49 WBC (4.23-9.07) K/mm3 RBC (4.63-6.08) M/mm3 Hgb (13.7-17.5) gm/dl Hct (40.1-51.0) % MCV (79.0-92.2) fl MCH (25.7-32.2) pg MCHC (32.2-35.5) g/dl RDW Std Deviation (35.1-43.9) fL Plt Count (163-337) K/mm3 MPV (9.4-12.3) fl Neut % (Auto) (34.0-67.9) % Lymph % (Auto) (21.8-53.1) % [place] % (Auto) (5.3-12.2) % Eos % (Auto) (0.8-7.0) Baso % (Auto) (0.1-1.2) % Neut # (Auto) (1.78-5.38) K/mm3 Lymph # (Auto) (1.32-3.57) K/mm3 [place] # (Auto) (0.30-0.82) K/mm3 Eos # (Auto) (0.04-0.54) K/mm3 Baso # (Auto) (0.01-0.08) K/mm3 Manual Slide Review PT (9.7-12.0) SECONDS INR APTT (22-31) SECONDS D-Dimer, Quantitative (0.19-0.50) mg/L Sodium (136-145) mEq/L Potassium (3.5-5.1) mEq/L Chloride (98-107) mEq/L Carbon Dioxide (21-32) mEq/L Anion Gap (5-15) BUN (7-18) mg/dL Creatinine (0.7-1.3) mg/dL Est Cr Clr Drug Dosing mL/min Estimated GFR (MDRD) (>60) mL/min BUN/Creatinine Ratio (14-18) Glucose (80-115) mg/dL Lactic Acid 1.6 (0.4-2.0) mmol/L Calcium (8.5-10.1) mg/dL Phosphorus (2.6-4.7) mg/dL Magnesium (1.8-2.4) mg/dl Ferritin (26-388) ng/ml Total Bilirubin (0.2-1.0) mg/dL AST (15-37) U/L ALT (16-63) U/L Alkaline Phosphatase (46-116) U/L Lactate Dehydrogenase (85-227) U/L C-Reactive Protein (<1.0) mg/dL NT-Pro-B Natriuret Pep (0-125) pg/mL Total Protein (6.4-8.2) g/dl Albumin (3.4-5.0) g/dl Globulin gm/dL Albumin/Globulin Ratio (1-2) Urine Color (Yellow) Urine Appearance (Clear) Urine pH (5.0-8.0) Ur Specific [place] (1.005-1.030) Urine Protein (Negative) Urine Glucose (UA) (Negative) Urine Ketones (Negative) Urine Occult Blood (Negative) Urine Nitrite (Negative) Urine Bilirubin (Negative) Urine Urobilinogen (0.2-1.0) Ur Leukocyte Esterase (Negative) Urine RBC (0-5) /hpf Urine WBC (0-5) /hpf Ur Squamous Epith Cells (0-5) /hpf Amorphous Sediment (NOT SEEN) /hpf Urine Bacteria (FEW) /hpf Urine Mucus (FEW) /hpf Jose Results Last 24 Hours: Microbiology 11/20/19 12:55 Anaerobic Blood Culture - Preliminary Blood - Venous - Lab Draw Gram Negative Rods 11/20/19 13:20 Urine Culture - Preliminary Urine, Clean Catch Gram Negative Rods Med Orders - Current: Current Medications Acetaminophen (Tylenol) 325 mg PO Q4H PRN PRN Reason: Pain (Mild 1-3)/fever Allopurinol (Zyloprim) 200 mg PO DAILY [facility] Last Admin: 11/21/19 11:10 Dose: 200 mg Apixaban (Eliquis) 5 mg PO BID [facility] Last Admin: 11/21/19 11:10 Dose: 5 mg Diltiazem HCl (Dilacor Xr) 240 mg PO DAILY [facility] Last Admin: 11/21/19 11:10 Dose: 240 mg Lactated Ringer's (Ringers, Lactated) 1,000 mls @ 150 mls/hr IV ASDIRECTED [facility] Last Admin: 11/21/19 05:06 Dose: 150 mls/hr Cefepime HCl 2 gm/ Premix 50 mls @ 100 mls/hr IV Q12H [facility] Last Admin: 11/21/19 09:13 Dose: 100 mls/hr Metoprolol Tartrate (Lopressor) 50 mg PO Q12H [facility] Last Admin: 11/21/19 11:11 Dose: Not Given Morphine Sulfate (Morphine) 2 mg IVPUSH Q4H PRN PRN Reason: Pain (severe 7-10) Stop: 11/21/19 17:43 Ondansetron HCl (Zofran Odt) 4 mg PO Q6H PRN PRN Reason: nausea, able to take PO Ondansetron HCl (Zofran) 4 mg IV Q6H PRN PRN Reason: Nausea/Vomiting Sodium Chloride (Saline Flush) 10 ml FLUSH ASDIRECTED PRN PRN Reason: Keep Vein Open Last Admin: 11/20/19 12:48 Dose: 10 ml Discontinued Medications Acetaminophen (Tylenol) 325 mg PO NOW ONE Stop: 11/20/19 17:32 Last Admin: 11/20/19 18:10 Dose: 325 mg Diltiazem HCl (Cardizem) 10 mg IVPUSH ONETIME ONE Stop: 11/20/19 12:30 Last Admin: 11/20/19 12:47 Dose: 10 mg Diltiazem HCl (Cardizem) 40 mg IVPUSH ONETIME ONE Stop: 11/20/19 17:05 Last Admin: 11/20/19 17:13 Dose: Not Given Diltiazem HCl (Dilacor Xr) 240 mg PO ONETIME ONE Stop: 11/21/19 00:14 Last Admin: 11/21/19 00:37 Dose: 240 mg Sodium Chloride (Normal Saline) 1,000 mls @ 999 mls/hr IV ASDIRECTED [facility] Last Infusion: 11/20/19 15:07 Dose: 999 mls/hr Ceftriaxone Sodium 1 gm/ (Sodium Chloride) 100 mls @ 200 mls/hr IV ONETIME ONE Stop: 11/20/19 14:43 Last Admin: 11/20/19 14:29 Dose: 200 mls/hr Magnesium Sulfate 2 gm/ Premix 50 mls @ 25 mls/hr IV ONETIME ONE Stop: 11/20/19 16:20 Last Admin: 11/20/19 15:14 Dose: 25 mls/hr Lactated Ringer's (Ringers, Lactated) 1,000 mls @ 100 mls/hr IV ASDIRECTED [facility] Last Infusion: 11/20/19 17:10 Dose: 999 mls/hr Lactated Ringer's (Ringers, Lactated) 1,000 mls @ 125 mls/hr IV ASDIRECTED [facility] Last Admin: 11/20/19 18:11 Dose: 125 mls/hr Cefepime HCl 2 gm/ Sodium (Chloride) 50 mls @ 100 mls/hr IV DAILY [facility] Last Admin: 11/20/19 17:56 Dose: Not Given Cefepime HCl 2 gm/ Premix 50 mls @ 100 mls/hr IV ONETIME ONE Stop: 11/20/19 18:24 Last Admin: 11/20/19 18:11 Dose: 100 mls/hr Lactated Ringer's (Ringers, Lactated) 500 mls @ 999 mls/hr IV ONETIME ONE Stop: 11/21/19 00:39 Last Admin: 11/21/19 00:42 Dose: 999 mls/hr Magnesium Sulfate/Dextrose 1 (gm/ Premix) 100 mls @ 100 mls/hr IV Q1H [facility] Stop: 11/21/19 04:14 Last Admin: 11/21/19 05:00 Dose: 100 mls/hr Metoprolol Tartrate (Lopressor) 50 mg PO ONETIME ONE Stop: 11/20/19 17:17 Last Admin: 11/20/19 17:24 Dose: 50 mg Metoprolol Tartrate (Lopressor) 50 mg PO ONETIME ONE Stop: 11/21/19 00:14 Last Admin: 11/21/19 00:43 Dose: 50 mg - Exam Quality Assessment: DVT Prophylaxis General: Alert, Oriented, Cooperative, No Acute Distress HEENT: Pupils Equal, Pupils Reactive, Mucous Membr. Moist/[place] Neck: Supple, Trachea Midline Lungs: Clear to Auscultation, Normal Respiratory Effort Cardiovascular: Regular Rate, Regular Rhythm GI/Abdominal Exam: Normal Bowel Sounds, Soft, Non-Tender, No Distention (Male) Exam: Deferred Back Exam: Normal Inspection, Full Range of Motion. No: CVA Tenderness (L), CVA Tenderness (R) Extremities: Normal Inspection, Normal Range of Motion, Non-Tender, No Pedal Edema, Normal Capillary Refill Skin: Warm, Dry, Intact Neurological: No New Focal Deficit Psy/Mental Status: Alert, Normal Affect, Normal Mood Sepsis Event Note - Evaluation Sepsis Screening Result: Sepsis Risk - Focused Exam Vital Signs: Vital Signs Temp Pulse Resp BP BP BP Pulse Ox 11/21/19 11:11 107 H 98/58 L 11/21/19 11:10 98/58 L 11/21/19 11:02 97.7 F 95 20 91/57 L 94 L 11/21/19 08:38 11/21/19 08:24 11/21/19 07:52 97.9 F 119 H 20 99/57 L 94 L 11/21/19 03:53 98.1 F 98 24 H 98/59 L 94 L 11/21/19 01:57 99.9 F 130 H 22 H 86/48 L 90 L 11/21/19 01:00 90/54 L 11/21/19 00:56 101.8 F H 11/21/19 00:53 24 H 90/73 11/21/19 00:47 141 H 93 L 11/21/19 00:43 140 H 131/35 L Pulse Ox Pulse Ox 11/21/19 11:11 11/21/19 11:10 11/21/19 11:02 11/21/19 08:38 91 L 11/21/19 08:24 96 11/21/19 07:52 11/21/19 03:53 11/21/19 01:57 11/21/19 01:00 11/21/19 00:56 11/21/19 00:53 11/21/19 00:47 11/21/19 00:43 Date Exam was Performed: 11/22/19 Time Exam was Performed: 08:42 - Problem List & Annotations (1) Bacteremia SNOMED Code(s): 0590005 Code(s): R78.81 - BACTEREMIA Status: Acute Priority: High Current Visit : Yes (2) Gout SNOMED Code(s): 39807497 Code(s): M10.9 - GOUT, UNSPECIFIED Status: Chronic Priority: Medium Current Visit: No Qualifiers: Gout site: unspecified site Gout etiology: unspecified cause Chronicity: unspecified Qualified Code(s): M10.9 - Gout, unspecified (3) H/O pyelonephritis SNOMED Code(s): 625292508 Code(s): Z87.448 - PERSONAL HISTORY OF OTHER DISEASES OF URINARY SYSTEM Status: Chronic Priority: Medium Current Visit: No (4) Hypertension SNOMED Code(s): 07066436 Code(s): I10 - ESSENTIAL (PRIMARY) HYPERTENSION Status: Chronic Priority : Medium Current Visit: No Qualifiers: Hypertension type: unspecified Qualified Code(s): I10 - Essential (primary ) hypertension (5) Morbid obesity SNOMED Code(s): 084697319 Code(s): E66.01 - MORBID (SEVERE) OBESITY DUE TO EXCESS CALORIES Status: Chronic Priority: Medium Current Visit: Yes (6) Nephrolithiasis SNOMED Code(s): 59341712 Code(s): N20.0 - CALCULUS OF KIDNEY Status: Chronic Priority: Medium Current Visit: Yes (7) Obstructive sleep apnea SNOMED Code(s): 57698084 Code(s): G47.33 - OBSTRUCTIVE SLEEP APNEA (ADULT) (PEDIATRIC) Status: Chronic Priority: Medium Current Visit: Yes (8) S/P ureteral stent placement SNOMED Code(s): 129386648, 661267308 Code(s): Z96.0 - PRESENCE OF UROGENITAL IMPLANTS Status: Chronic Priority : Medium Current Visit: Yes (9) Sepsis SNOMED Code(s): 98809638 Code(s): A41.9 - SEPSIS, UNSPECIFIED ORGANISM Status: Acute Priority: High Current Visit: Yes Qualifiers: Sepsis type: sepsis due to unspecified organism Sepsis acute organ dysfunction status: unspecified Qualified Code(s): A41.9 - Sepsis, unspecified organism (10) UTI (urinary tract infection) SNOMED Code(s): 28021492 Code(s): N39.0 - URINARY TRACT INFECTION, SITE NOT SPECIFIED Status: Acute Priority: High Current Visit: Yes Qualifiers: Urinary tract infection type: site unspecified Hematuria presence: with hematuria Qualified Code(s): N39.0 - Urinary tract infection, site not specified; R31.9 - Hematuria, unspecified (11) Chronic atrial fibrillation with RVR SNOMED Code(s): 379295149, 124144686077476 Code(s): I48.20 - CHRONIC ATRIAL FIBRILLATION, UNSPECIFIED Status: Chronic Priority: Medium Current Visit: No (12) Lactic acidosis SNOMED Code(s): 39826465 Code(s): E87.2 - ACIDOSIS Status: Resolved Priority: High Current Visit : Yes - Problem List Review Problem List Initiated/Reviewed/Updated: Yes - My Orders Last 24 Hours: My Active Orders 11/21/19 10:30 Apixaban [Eliquis] 5 mg PO BID Diltiazem [Dilacor XR] 240 mg PO DAILY Metoprolol Tartrate [Lopressor] 50 mg PO Q12H allopurinoL [Zyloprim] 200 mg PO DAILY 11/22/19 05:11 BASIC METABOLIC PANEL,BMP [CHEM] AM CBC WITH AUTO DIFF [HEME] AM CRP [C-REACTIVE PROTEIN] [CHEM] AM LACTIC ACID [CHEM] AM MAGNESIUM [CHEM] AM 11/22/19 12:30 CULTURE BLOOD [BC] Routine CULTURE BLOOD [BC] Routine Blood Culture x2 Reflex Set [OM.PC] ASDIRECTED 11/23/19 05:11 BASIC METABOLIC PANEL,BMP [CHEM] AM CBC WITH AUTO DIFF [HEME] AM CRP [C-REACTIVE PROTEIN] [CHEM] AM MAGNESIUM [CHEM] AM 11/24/19 05:11 BASIC METABOLIC PANEL,BMP [CHEM] AM CBC WITH AUTO DIFF [HEME] AM CRP [C-REACTIVE PROTEIN] [CHEM] AM MAGNESIUM [CHEM] AM 11/25/19 05:11 BASIC METABOLIC PANEL,BMP [CHEM] AM CBC WITH AUTO DIFF [HEME] AM CRP [C-REACTIVE PROTEIN] [CHEM] AM MAGNESIUM [CHEM] AM - Plan Plan:: ASSESSMENT BY DAY DAY OF ADMISSION - New onset fever - recent admission to [facility] for complicated UTI 2/2 left nephrolithiasis s/ p stent placement - Treated with Vancomycin and Cefepime and transitioned to Unasyn prior to discharge, completed 7 days of therapy - Scheduled to f/u with urology, Dr. Mistry/Rosa on 11/27 - Sepsis: Urinary source + elevated lactic acid + leukocytosis + tachycardia - IBW is 75kg - Goal IVF if lactate above 4 or hypotension is 2260ml - Given 1L NS in ED - Recent bacteremia 2/2 _, no follow up cultures obtained - HR on admission 125x', given IV Diltiazem Day 1 Reports he feels better Gram negative rods in blood Awaiting urinary culture Remains tachycardic with low BP. WBC slightly elevated Electrolytes stable Sepsis 2/2 UTI (urinary tract infection) S/P left ureteral stent placement Nephrolithiasis H/O recent pyelonephritis Bacteremia - Continue Cefepime - F/U cultures from ED, blood + urine - Lactic acid now normal - 1L LR, maintenance at 125ml/hr - Request records for echocardiogram Chronic atrial fibrillation with RVR - Home diltiazem and metoprolol - Telemetry during admission Hypertension - Hold home BP meds for now Obstructive sleep apnea - Continue CPAP at home settings (pressure 20) PROPHYLAXIS DVT- Continue home Eliquis GI- not indicated CODE STATUS: FULL CODE DISPOSITION: Patient will be admitted for IV antibiotics and sepsis work up. SOCIAL Lives in [place] with Independent at home
[2019-11-21] MEDS ORDERED: Acetaminophen 325 MG Tab PO PRN (20:48)
[2019-11-22] MEDS: Lactated Ringers 1,000 ML IV SCH (04:08)
[2019-11-22] MEDS ORDERED: Magnesium Sulfate/Water 2 GM in Premix Bag 1 BAG IV ONE (09:09)
[2019-11-22] MEDS: Diltiazem 240 MG Cap.ER PO SCH (09:24)
[2019-11-22] MEDS: Allopurinol 100 MG Tab PO SCH (09:24)
[2019-11-22] MEDS: Apixaban 5 MG Tab PO SCH ×2 (09:24→21:00)
[2019-11-22] MEDS: Cefepime 2 GM in Premix Bag 1 BAG IV SCH ×2 (09:27→21:30)
[2019-11-22] MEDS: Metoprolol Tartrate 25 MG Tab PO SCH ×2 (09:30→23:32)
--- NOTE | 2019-11-22 13:13 | PCM.PN ---
- General Info Date of Service: 11/22/19 Functional Status: Reports: Pain Controlled, Tolerating Diet, Ambulating, Urinating. Denies: New Symptoms - Review of Systems General: Reports: No Symptoms. Denies: Fever (overnight but none today ), Weakness, Fatigue, Malaise, Chills HEENT: Reports: No Symptoms. Denies: Headaches, Sore Throat Pulmonary: Reports: No Symptoms. Denies: Shortness of Breath, Pleuritic Chest Pain, Cough, Sputum, Wheezing Cardiovascular: Reports: No Symptoms. Denies: Chest Pain, Palpitations, Dyspnea on Exertion Gastrointestinal: Reports: No Symptoms. Denies: Abdominal Pain, Constipation, Diarrhea, Nausea, Vomiting Genitourinary: Reports: No Symptoms. Denies: Pain Musculoskeletal: Reports: No Symptoms Skin: Reports: No Symptoms. Denies: Cyanosis Neurological: Reports: No Symptoms. Denies: Confusion, Difficulty Walking, Gait Disturbance Psychiatric: Reports: No Symptoms - Patient Data Vitals - Most Recent: Last Vital Signs Temp 98.1 F 11/22/19 11:49 Pulse 88 11/22/19 11:49 Resp 16 11/22/19 11:49 BP 103/86 11/22/19 11:49 Pulse Ox 96 11/22/19 11:49 Weight - Most Recent: 385 lb I&O - Last 24 Hours: Intake & Output 11/21/19 11/22/19 11/22/19 22:59 06:59 14:59 Intake Total 3090 1531 300 Output Total 1150 1050 Balance 1940 481 300 Lab Results Last 24 Hours: Laboratory Results - last 24 hr 11/22/19 11/22/19 11/22/19 Range/Units 05:31 05:31 05:31 WBC 7.43 (4.23-9.07) K/mm3 RBC 2.89 L (4.63-6.08) M/mm3 Hgb 10.2 L (13.7-17.5) gm/dl Hct 31.8 L (40.1-51.0) % MCV 110.0 H (79.0-92.2) fl MCH 35.3 H (25.7-32.2) pg MCHC 32.1 L (32.2-35.5) g/dl RDW Std Deviation 51.9 H (35.1-43.9) fL Plt Count 193 (163-337) K/mm3 MPV 11.0 (9.4-12.3) fl Neut % (Auto) 74.3 H (34.0-67.9) % Lymph % (Auto) 13.3 L (21.8-53.1) % [place] % (Auto) 8.3 (5.3-12.2) % Eos % (Auto) 3.4 (0.8-7.0) Baso % (Auto) 0.4 (0.1-1.2) % Neut # (Auto) 5.52 H (1.78-5.38) K/mm3 Lymph # (Auto) 0.99 L (1.32-3.57) K/mm3 [place] # (Auto) 0.62 (0.30-0.82) K/mm3 Eos # (Auto) 0.25 (0.04-0.54) K/mm3 Baso # (Auto) 0.03 (0.01-0.08) K/mm3 Manual Slide Review Abnormal smear Sodium 135 L (136-145) mEq/L Potassium 3.8 (3.5-5.1) mEq/L Chloride 101 (98-107) mEq/L Carbon Dioxide 26 (21-32) mEq/L Anion Gap 11.8 (5-15) BUN 14 (7-18) mg/dL Creatinine 1.0 (0.7-1.3) mg/dL Est Cr Clr Drug Dosing 79.08 mL/min Estimated GFR (MDRD) > 60 (>60) mL/min BUN/Creatinine Ratio 14.0 (14-18) Glucose 110 (80-115) mg/dL Lactic Acid 1.1 (0.4-2.0) mmol/L Calcium 8.0 L (8.5-10.1) mg/dL Magnesium 1.8 (1.8-2.4) mg/dl C-Reactive Protein 19.3 H* (<1.0) mg/dL Jose Results Last 24 Hours: Microbiology 11/20/19 12:55 Aerobic Blood Culture - Preliminary Blood - Venous - Lab Draw NO GROWTH AFTER 2 DAYS Anaerobic Blood Culture - Preliminary Gram Negative Rods 11/20/19 12:40 Aerobic Blood Culture - Preliminary Blood - Venous NO GROWTH AFTER 2 DAYS Anaerobic Blood Culture - Preliminary NO GROWTH AFTER 2 DAYS 11/20/19 13:20 Coronavirus RNA (PCR) - Final Nasopharyngeal Swab 11/20/19 18:21 Aerobic Blood Culture - Preliminary Blood - Venous NO GROWTH AFTER 1 DAY Anaerobic Blood Culture - Preliminary NO GROWTH AFTER 1 DAY 11/20/19 18:00 Aerobic Blood Culture - Preliminary Blood - Venous - Lab Draw NO GROWTH AFTER 1 DAY Anaerobic Blood Culture - Preliminary NO GROWTH AFTER 1 DAY 11/20/19 13:20 Urine Culture - Preliminary Urine, Clean Catch Gram Negative Rods Med Orders - Current: Current Medications Acetaminophen (Tylenol) 650 mg PO Q4H PRN PRN Reason: Pain/Fever Allopurinol (Zyloprim) 200 mg PO DAILY [facility] Last Admin: 11/22/19 09:24 Dose: 200 mg Apixaban (Eliquis) 5 mg PO BID [facility] Last Admin: 11/22/19 09:24 Dose: 5 mg Diltiazem HCl (Dilacor Xr) 240 mg PO DAILY [facility] Last Admin: 11/22/19 09:24 Dose: 240 mg Cefepime HCl 2 gm/ Premix 50 mls @ 100 mls/hr IV Q12H [facility] Last Admin: 11/22/19 09:27 Dose: 100 mls/hr Metoprolol Tartrate (Lopressor) 50 mg PO Q12H [facility] Last Admin: 11/22/19 09:30 Dose: 50 mg Ondansetron HCl (Zofran Odt) 4 mg PO Q6H PRN PRN Reason: nausea, able to take PO Ondansetron HCl (Zofran) 4 mg IV Q6H PRN PRN Reason: Nausea/Vomiting Sodium Chloride (Saline Flush) 10 ml FLUSH ASDIRECTED PRN PRN Reason: Keep Vein Open Last Admin: 11/20/19 12:48 Dose: 10 ml Discontinued Medications Acetaminophen (Tylenol) 325 mg PO NOW ONE Stop: 11/20/19 17:32 Last Admin: 11/20/19 18:10 Dose: 325 mg Acetaminophen (Tylenol) 325 mg PO Q4H PRN PRN Reason: Pain (Mild 1-3)/fever Last Admin: 11/21/19 20:38 Dose: 325 mg Diltiazem HCl (Cardizem) 10 mg IVPUSH ONETIME ONE Stop: 11/20/19 12:30 Last Admin: 11/20/19 12:47 Dose: 10 mg Diltiazem HCl (Cardizem) 40 mg IVPUSH ONETIME ONE Stop: 11/20/19 17:05 Last Admin: 11/20/19 17:13 Dose: Not Given Diltiazem HCl (Dilacor Xr) 240 mg PO ONETIME ONE Stop: 11/21/19 00:14 Last Admin: 11/21/19 00:37 Dose: 240 mg Sodium Chloride (Normal Saline) 1,000 mls @ 999 mls/hr IV ASDIRECTED [facility] Last Infusion: 11/20/19 15:07 Dose: 999 mls/hr Ceftriaxone Sodium 1 gm/ (Sodium Chloride) 100 mls @ 200 mls/hr IV ONETIME ONE Stop: 11/20/19 14:43 Last Admin: 11/20/19 14:29 Dose: 200 mls/hr Magnesium Sulfate 2 gm/ Premix 50 mls @ 25 mls/hr IV ONETIME ONE Stop: 11/20/19 16:20 Last Admin: 11/20/19 15:14 Dose: 25 mls/hr Lactated Ringer's (Ringers, Lactated) 1,000 mls @ 100 mls/hr IV ASDIRECTED [facility] Last Infusion: 11/20/19 17:10 Dose: 999 mls/hr Lactated Ringer's (Ringers, Lactated) 1,000 mls @ 125 mls/hr IV ASDIRECTED [facility] Last Admin: 11/20/19 18:11 Dose: 125 mls/hr Cefepime HCl 2 gm/ Sodium (Chloride) 50 mls @ 100 mls/hr IV DAILY [facility] Last Admin: 11/20/19 17:56 Dose: Not Given Cefepime HCl 2 gm/ Premix 50 mls @ 100 mls/hr IV ONETIME ONE Stop: 11/20/19 18:24 Last Admin: 11/20/19 18:11 Dose: 100 mls/hr Lactated Ringer's (Ringers, Lactated) 500 mls @ 999 mls/hr IV ONETIME ONE Stop: 11/21/19 00:39 Last Admin: 11/21/19 00:42 Dose: 999 mls/hr Lactated Ringer's (Ringers, Lactated) 1,000 mls @ 150 mls/hr IV ASDIRECTED [facility] Last Admin: 11/22/19 04:08 Dose: 150 mls/hr Magnesium Sulfate/Dextrose 1 (gm/ Premix) 100 mls @ 100 mls/hr IV Q1H HAL Stop: 11/21/19 04:14 Last Admin: 11/21/19 05:00 Dose: 100 mls/hr Magnesium Sulfate 2 gm/ Premix 50 mls @ 25 mls/hr IV ONETIME ONE Stop: 11/22/19 11:08 Last Admin: 11/22/19 10:13 Dose: 25 mls/hr Metoprolol Tartrate (Lopressor) 50 mg PO ONETIME ONE Stop: 11/20/19 17:17 Last Admin: 11/20/19 17:24 Dose: 50 mg Metoprolol Tartrate (Lopressor) 50 mg PO ONETIME ONE Stop: 11/21/19 00:14 Last Admin: 11/21/19 00:43 Dose: 50 mg Morphine Sulfate (Morphine) 2 mg IVPUSH Q4H PRN PRN Reason: Pain (severe 7-10) Stop: 11/21/19 17:43 - Exam Quality Assessment: DVT Prophylaxis General: Alert, Oriented, Cooperative, No Acute Distress HEENT: Pupils Equal, Pupils Reactive, Mucous Membr. Moist/[place] Neck: Supple, Trachea Midline Lungs: Clear to Auscultation, Normal Respiratory Effort Cardiovascular: Regular Rate, Irregular Rhythm GI/Abdominal Exam: Normal Bowel Sounds, Soft, Non-Tender, No Distention (Male) Exam: Deferred Back Exam: Normal Inspection, Full Range of Motion Extremities: Normal Inspection, Normal Range of Motion, Non-Tender, No Pedal Edema, Normal Capillary Refill Skin: Warm, Dry, Intact Neurological: No New Focal Deficit Psy/Mental Status: Alert, Normal Affect, Normal Mood Sepsis Event Note - Evaluation Sepsis Screening Result: No Definite Risk - Focused Exam Vital Signs: Vital Signs Temp Pulse Resp BP Pulse Ox 11/22/19 11:49 98.1 F 88 16 103/86 96 11/22/19 09:30 102 H 107/63 11/22/19 09:22 98 110/52 L 94 L 11/22/19 08:36 98.1 F 90 28 H 90/61 93 L 11/22/19 02:58 98.4 F 102 H 21 H 116/73 98 Date Exam was Performed: 11/22/19 Time Exam was Performed: 14:06 - Problem List & Annotations (1) Bacteremia SNOMED Code(s): 8178489 Code(s): R78.81 - BACTEREMIA Status: Acute Priority: High Current Visit : Yes (2) Gout SNOMED Code(s): 81272507 Code(s): M10.9 - GOUT, UNSPECIFIED Status: Chronic Priority: Medium Current Visit: No Qualifiers: Gout site: unspecified site Gout etiology: unspecified cause Chronicity: unspecified Qualified Code(s): M10.9 - Gout, unspecified (3) H/O pyelonephritis SNOMED Code(s): 648518274 Code(s): Z87.448 - PERSONAL HISTORY OF OTHER DISEASES OF URINARY SYSTEM Status: Chronic Priority: Medium Current Visit: No (4) Hypertension SNOMED Code(s): 28513895 Code(s): I10 - ESSENTIAL (PRIMARY) HYPERTENSION Status: Chronic Priority : Medium Current Visit: No Qualifiers: Hypertension type: unspecified Qualified Code(s): I10 - Essential (primary ) hypertension (5) Morbid obesity SNOMED Code(s): 054241084 Code(s): E66.01 - MORBID (SEVERE) OBESITY DUE TO EXCESS CALORIES Status: Chronic Priority: Medium Current Visit: Yes (6) Nephrolithiasis SNOMED Code(s): 34437913 Code(s): N20.0 - CALCULUS OF KIDNEY Status: Chronic Priority: Medium Current Visit: Yes (7) Obstructive sleep apnea SNOMED Code(s): 72320280 Code(s): G47.33 - OBSTRUCTIVE SLEEP APNEA (ADULT) (PEDIATRIC) Status: Chronic Priority: Medium Current Visit: Yes (8) S/P ureteral stent placement SNOMED Code(s): 011011436, 040181430 Code(s): Z96.0 - PRESENCE OF UROGENITAL IMPLANTS Status: Chronic Priority : Medium Current Visit: Yes (9) Sepsis SNOMED Code(s): 07424083 Code(s): A41.9 - SEPSIS, UNSPECIFIED ORGANISM Status: Acute Priority: High Current Visit: Yes Qualifiers: Sepsis type: sepsis due to unspecified organism Sepsis acute organ dysfunction status: unspecified Qualified Code(s): A41.9 - Sepsis, unspecified organism (10) UTI (urinary tract infection) SNOMED Code(s): 98812329 Code(s): N39.0 - URINARY TRACT INFECTION, SITE NOT SPECIFIED Status: Acute Priority: High Current Visit: Yes Qualifiers: Urinary tract infection type: site unspecified Hematuria presence: with hematuria Qualified Code(s): N39.0 - Urinary tract infection, site not specified; R31.9 - Hematuria, unspecified (11) Chronic atrial fibrillation with RVR SNOMED Code(s): 584080190, 763469078671103 Code(s): I48.20 - CHRONIC ATRIAL FIBRILLATION, UNSPECIFIED Status: Chronic Priority: Medium Current Visit: No (12) Lactic acidosis SNOMED Code(s): 40367960 Code(s): E87.2 - ACIDOSIS Status: Resolved Priority: High Current Visit : Yes - Problem List Review Problem List Initiated/Reviewed/Updated: Yes - My Orders Last 24 Hours: My Active Orders 11/22/19 12:30 CULTURE BLOOD [BC] Routine Blood Culture x2 Reflex Set [OM.PC] ASDIRECTED 11/22/19 12:56 CULTURE BLOOD [BC] Routine 11/23/19 05:11 BASIC METABOLIC PANEL,BMP [CHEM] AM CBC WITH AUTO DIFF [HEME] AM CRP [C-REACTIVE PROTEIN] [CHEM] AM MAGNESIUM [CHEM] AM 11/24/19 05:11 BASIC METABOLIC PANEL,BMP [CHEM] AM CBC WITH AUTO DIFF [HEME] AM CRP [C-REACTIVE PROTEIN] [CHEM] AM MAGNESIUM [CHEM] AM 11/25/19 05:11 BASIC METABOLIC PANEL,BMP [CHEM] AM CBC WITH AUTO DIFF [HEME] AM CRP [C-REACTIVE PROTEIN] [CHEM] AM MAGNESIUM [CHEM] AM - Plan Plan:: ASSESSMENT BY DAY DAY OF ADMISSION - New onset fever - recent admission to [facility] for complicated UTI 2/2 left nephrolithiasis s/ p stent placement - Treated with Vancomycin and Cefepime and transitioned to Unasyn prior to discharge, completed 7 days of therapy - Scheduled to f/u with urology, Dr. Mistry/Rosa on 11/27 - Sepsis: Urinary source + elevated lactic acid + leukocytosis + tachycardia - IBW is 75kg - Goal IVF if lactate above 4 or hypotension is 2260ml - Given 1L NS in ED - Recent bacteremia 2/2 _, no follow up cultures obtained - HR on admission 125x', given IV Diltiazem Day 1 Reports he feels better Gram negative rods in blood Awaiting urinary culture Remains tachycardic with low BP. WBC slightly elevated Electrolytes stable Day 2 Continues to feel good Repeat blood cultures negative Awaiting c/s for urine culture Up ambulating without issues Fever overnight but none today WBC normal No nursing or patient concerns Sepsis 2/2 UTI (urinary tract infection) S/P left ureteral stent placement Nephrolithiasis H/O recent pyelonephritis Bacteremia - Continue Cefepime - F/U cultures from ED, blood + urine - Lactic acid normal - Discontinue IV fluids Chronic atrial fibrillation with RVR - Home diltiazem and metoprolol - Telemetry during admission - Stable Hypertension - Hold home BP meds for now Obstructive sleep apnea - Continue CPAP at home settings (pressure 20) PROPHYLAXIS DVT- Continue home Eliquis GI- not indicated CODE STATUS: FULL CODE DISPOSITION: Patient will be admitted for IV antibiotics and sepsis work up. Likely discharge tomorrow SOCIAL Lives in [place] with Independent at home
[2019-11-23] MEDS ORDERED: Cefdinir 300 MG Cap PO SCH (09:00)
--- NOTE | 2019-11-23 09:12 | PCM.DCSUM1 ---
Discharge Summary - Hospital Course HPI Initial Comments: This is a 64 year old male with past medical history of recent UTI and 4 day admission in [facility] for obstructive UTI 2/2 nephrolithiasis on L side s/p stent placement by urology. Discharged around 1 week ago, patient states he was back in usual health until this AM when he started feeling some chills for which he measured his temperature and found it to be 102 for which he came in to be evaluated since that is what he was told upon discharge from [facility]. Diagnosis: Stroke: No - Discharge Data Discharge Date: 11/23/19 (Admit date: 11/20/19) Discharge Disposition: Home, Self-Care 01 Condition: Good - Referral to Home Health Primary Care Physician: Pop Ptitman PA-C - Discharge Diagnosis/Problem(s) (1) Bacteremia SNOMED Code(s): 9524646 ICD Code: R78.81 - BACTEREMIA Status: Resolved Priority: High Current Visit: Yes (2) Gout SNOMED Code(s): 88714178 ICD Code: M10.9 - GOUT, UNSPECIFIED Status: Chronic Priority: Medium Current Visit: No Qualifiers: Gout site: unspecified site Gout etiology: unspecified cause Chronicity: unspecified Qualified Code(s): M10.9 - Gout, unspecified (3) H/O pyelonephritis SNOMED Code(s): 067752582 ICD Code: Z87.448 - PERSONAL HISTORY OF OTHER DISEASES OF URINARY SYSTEM Status: Chronic Priority: Medium Current Visit: No (4) Hypertension SNOMED Code(s): 49199477 ICD Code: I10 - ESSENTIAL (PRIMARY) HYPERTENSION Status: Chronic Priority : Medium Current Visit: No Qualifiers: Hypertension type: unspecified Qualified Code(s): I10 - Essential (primary ) hypertension (5) Morbid obesity SNOMED Code(s): 445475250 ICD Code: E66.01 - MORBID (SEVERE) OBESITY DUE TO EXCESS CALORIES Status: Chronic Priority: Medium Current Visit: Yes (6) Nephrolithiasis SNOMED Code(s): 69565853 ICD Code: N20.0 - CALCULUS OF KIDNEY Status: Chronic Priority: Medium Current Visit: Yes (7) Obstructive sleep apnea SNOMED Code(s): 70117742 ICD Code: G47.33 - OBSTRUCTIVE SLEEP APNEA (ADULT) (PEDIATRIC) Status: Chronic Priority: Medium Current Visit: Yes (8) S/P ureteral stent placement SNOMED Code(s): 490176336, 632960527 ICD Code: Z96.0 - PRESENCE OF UROGENITAL IMPLANTS Status: Chronic Priority: Medium Current Visit: Yes (9) Sepsis SNOMED Code(s): 50443448 ICD Code: A41.9 - SEPSIS, UNSPECIFIED ORGANISM Status: Resolved Priority : High Current Visit: Yes Qualifiers: Sepsis type: sepsis due to unspecified organism Sepsis acute organ dysfunction status: unspecified Qualified Code(s): A41.9 - Sepsis, unspecified organism (10) UTI (urinary tract infection) SNOMED Code(s): 67182323 ICD Code: N39.0 - URINARY TRACT INFECTION, SITE NOT SPECIFIED Status: Acute Priority: High Current Visit: Yes Qualifiers: Urinary tract infection type: site unspecified Hematuria presence: with hematuria Qualified Code(s): N39.0 - Urinary tract infection, site not specified; R31.9 - Hematuria, unspecified (11) Chronic atrial fibrillation with RVR SNOMED Code(s): 020686873, 122687719077748 ICD Code: I48.20 - CHRONIC ATRIAL FIBRILLATION, UNSPECIFIED Status: Chronic Priority: Medium Current Visit: No (12) Lactic acidosis SNOMED Code(s): 66896608 ICD Code: E87.2 - ACIDOSIS Status: Resolved Priority: High Current Visit: Yes - Patient Summary/Data Labs Pending at D/C: None Recommended Follow-up Testing/Procedures: Follow-up with PCP within 3-5 days of discharge, sooner if needed. Hospital Course: Kahlil was admitted to the hospital floor due to concerns of sepsis secondary to UTI. He was placed on Maxipime and given IV fluids. His lactic acid and white count did trend down. He was noted to have recently placed left ureter stent with a stone proximal to the stent. This appeared to be non-obstructing. Patient did report that he felt much better with treatment. He was up ambulating. No CVA tenderness. 1 out of 4 blood cultures did return positive for E. coli. Urine culture also grew out E. coli with multiple sensitive drugs. Repeat blood cultures were negative. He was switched from IV Maxipime to cefdinir 300 mg twice daily prior to discharge. He will undergo 6 more days of p.o. antibiotic treatment. While here his heart rate was noted to be quite high, often in the 90s to 100s and at times increasing to the 150s to 180s. This did oddly return to normal with rest. His diltiazem was increased from 240 mg daily to 300 mg daily. He was instructed to take his blood pressure 2-3 times a day and record this in a journal along with his heart rate. Instructed to follow-up with his primary care provider within 3 to 5 days of discharge, sooner if needed. Electrolytes were supplemented prior to discharge. He was instructed to stop his Lasix but continue his Spironolactone as his blood pressures have been somewhat low while here on the floor. Recommend repeat CBC , CMP, magnesium at follow-up appointment. He was discharged home today. Due to concerns over symptoms he was checked with a COVID-19 screen. This was negative. - Patient Instructions Diet: Heart Healthy Diet Activity: As Tolerated Showering/Bathing: May Shower Notify Provider of: Fever, Increased Pain, Nausea and/or Vomiting Other/Special Instructions: Follow-up with primary care provider within 5-7 days of discharge. Be sure to keep your urology appointment. Be sure to mention that we found a stone near your stent. Take your blood pressure 2-3 times a day. Record this in a journal and bring it with to all medical appointments. We are holding your lasix at discharge. You can talk with your primary care provider about this. Resume home medications as directed. Be sure to take all of your antibiotic as prescribed, even if you feel 100% better. Should symptoms return or worsen. Your COVID-19 test here was negative. - Discharge Plan *PRESCRIPTION DRUG MONITORING PROGRAM REVIEWED*: No *COPY OF PRESCRIPTION DRUG MONITORING REPORT IN PATIENT INES: No Prescriptions/Med Rec: Cefdinir [Omnicef] 300 mg PO BID #13 cap Diltiazem HCl [Cardizem Cd] 300 mg PO DAILY #30 cap.er.24h Home Medications: Home Meds Spironolactone [Aldactone] 25 mg PO DAILY 01/18/19 [History] allopurinoL [Zyloprim] 200 mg PO DAILY 01/18/19 [History] Apixaban [Eliquis] 5 mg PO BID 11/03/19 [History] Metoprolol Tartrate [Lopressor] 50 mg PO Q12H 11/03/19 [History] Cefdinir [Omnicef] 300 mg PO BID #13 cap 11/23/19 [Rx] Diltiazem HCl [Cardizem Cd] 300 mg PO DAILY #30 cap.er.24h 11/23/19 [Rx] Oxygen Therapy Mode: Room Air Patient Handouts: Kidney Stones, [id number], Urinary Tract Infection, Adult, [id number], Sepsis, Diagnosis, Adult, Heart Failure Referrals: Pop Pittman PA-C [Primary Care Provider] - (As Pop Pittman PA-C is not coming to [place] for appointments for the time being. Please call the [facility] Tuesday morning and request an appointment within 5-7 days with a provider to evaluate the holding of the lasix.) - Discharge Summary/Plan Comment DC Time >30 min.: Yes (45 mins) - General Info Date of Service: 11/23/19 Functional Status: Reports: Pain Controlled, Tolerating Diet, Ambulating, Urinating. Denies: New Symptoms - Review of Systems General: Reports: No Symptoms. Denies: Fever, Weakness, Fatigue, Malaise, Chills HEENT: Reports: No Symptoms. Denies: Headaches, Sore Throat Pulmonary: Reports: No Symptoms. Denies: Shortness of Breath, Cough, Sputum, Wheezing Cardiovascular: Reports: No Symptoms. Denies: Chest Pain, Palpitations, Dyspnea on Exertion, Lightheadedness Gastrointestinal: Reports: No Symptoms. Denies: Abdominal Pain, Constipation, Diarrhea, Nausea, Vomiting Genitourinary: Reports: No Symptoms. Denies: Pain Musculoskeletal: Reports: No Symptoms Skin: Reports: No Symptoms. Denies: Cyanosis Neurological: Reports: No Symptoms. Denies: Confusion, Difficulty Walking, Gait Disturbance Psychiatric: Reports: No Symptoms - Patient Data Vitals - Most Recent: Last Vital Signs Temp 97.7 F 11/23/19 07:41 Pulse 87 11/23/19 07:41 Resp 18 11/23/19 07:41 BP 120/75 11/23/19 07:41 Pulse Ox 96 11/23/19 07:41 Weight - Most Recent: 384 lb 8 oz I&O - Last 24 hours: Intake & Output 11/22/19 11/23/19 11/23/19 22:59 06:59 14:59 Intake Total 1512 650 Balance 1512 650 Lab Results - Last 24 hrs: Laboratory Results - last 24 hr 11/22/19 11/23/19 11/23/19 Range/Units 21:02 07:13 07:13 WBC 5.74 (4.23-9.07) K/mm3 RBC 3.09 L (4.63-6.08) M/mm3 Hgb 10.9 L (13.7-17.5) gm/dl Hct 33.7 L (40.1-51.0) % MCV 109.1 H (79.0-92.2) fl MCH 35.3 H (25.7-32.2) pg MCHC 32.3 (32.2-35.5) g/dl RDW Std Deviation 50.9 H (35.1-43.9) fL Plt Count 213 (163-337) K/mm3 MPV 10.9 (9.4-12.3) fl Neut % (Auto) 60.8 (34.0-67.9) % Lymph % (Auto) 19.7 L (21.8-53.1) % [place] % (Auto) 11.1 (5.3-12.2) % Eos % (Auto) 7.0 (0.8-7.0) Baso % (Auto) 0.9 (0.1-1.2) % Neut # (Auto) 3.49 (1.78-5.38) K/mm3 Lymph # (Auto) 1.13 L (1.32-3.57) K/mm3 [place] # (Auto) 0.64 (0.30-0.82) K/mm3 Eos # (Auto) 0.40 (0.04-0.54) K/mm3 Baso # (Auto) 0.05 (0.01-0.08) K/mm3 Manual Slide Review Abnormal smear Sodium 135 L (136-145) mEq/L Potassium 3.9 (3.5-5.1) mEq/L Chloride 102 (98-107) mEq/L Carbon Dioxide 24 (21-32) mEq/L Anion Gap 12.9 (5-15) BUN 12 (7-18) mg/dL Creatinine 0.9 (0.7-1.3) mg/dL Est Cr Clr Drug Dosing 87.87 mL/min Estimated GFR (MDRD) > 60 (>60) mL/min BUN/Creatinine Ratio 13.3 L (14-18) Glucose 106 (80-115) mg/dL POC Glucose 104 (80-115) mg/dL Calcium 8.1 L (8.5-10.1) mg/dL Magnesium 1.8 (1.8-2.4) mg/dl C-Reactive Protein 11.9 H* (<1.0) mg/dL ELAINE Results - Last 24 hrs: Microbiology 11/20/19 12:55 Aerobic Blood Culture - Preliminary Blood - Venous - Lab Draw NO GROWTH AFTER 2 DAYS Anaerobic Blood Culture - Preliminary Escherichia Coli 11/20/19 12:40 Aerobic Blood Culture - Preliminary Blood - Venous NO GROWTH AFTER 2 DAYS Anaerobic Blood Culture - Preliminary NO GROWTH AFTER 2 DAYS 11/20/19 18:21 Aerobic Blood Culture - Preliminary Blood - Venous NO GROWTH AFTER 2 DAYS Anaerobic Blood Culture - Preliminary NO GROWTH AFTER 2 DAYS 11/20/19 18:00 Aerobic Blood Culture - Preliminary Blood - Venous - Lab Draw NO GROWTH AFTER 2 DAYS Anaerobic Blood Culture - Preliminary NO GROWTH AFTER 2 DAYS 11/20/19 13:20 Urine Culture - Final Urine, Clean Catch Escherichia Coli 11/20/19 13:20 Coronavirus RNA (PCR) - Final Nasopharyngeal Swab Med Orders - Current: Current Medications Acetaminophen (Tylenol) 650 mg PO Q4H PRN PRN Reason: Pain/Fever Allopurinol (Zyloprim) 200 mg PO DAILY [facility] Last Admin: 11/22/19 09:24 Dose: 200 mg Apixaban (Eliquis) 5 mg PO BID [facility] Last Admin: 11/22/19 21:00 Dose: 5 mg Cefdinir (Omnicef) 300 mg PO BID [facility] Diltiazem HCl (Dilacor Xr) 240 mg PO DAILY [facility] Last Admin: 11/22/19 09:24 Dose: 240 mg Metoprolol Tartrate (Lopressor) 50 mg PO Q12H [facility] Last Admin: 11/22/19 23:32 Dose: 50 mg Ondansetron HCl (Zofran Odt) 4 mg PO Q6H PRN PRN Reason: nausea, able to take PO Ondansetron HCl (Zofran) 4 mg IV Q6H PRN PRN Reason: Nausea/Vomiting Sodium Chloride (Saline Flush) 10 ml FLUSH ASDIRECTED PRN PRN Reason: Keep Vein Open Last Admin: 11/20/19 12:48 Dose: 10 ml Discontinued Medications Acetaminophen (Tylenol) 325 mg PO NOW ONE Stop: 11/20/19 17:32 Last Admin: 11/20/19 18:10 Dose: 325 mg Acetaminophen (Tylenol) 325 mg PO Q4H PRN PRN Reason: Pain (Mild 1-3)/fever Last Admin: 11/21/19 20:38 Dose: 325 mg Diltiazem HCl (Cardizem) 10 mg IVPUSH ONETIME ONE Stop: 11/20/19 12:30 Last Admin: 11/20/19 12:47 Dose: 10 mg Diltiazem HCl (Cardizem) 40 mg IVPUSH ONETIME ONE Stop: 11/20/19 17:05 Last Admin: 11/20/19 17:13 Dose: Not Given Diltiazem HCl (Dilacor Xr) 240 mg PO ONETIME ONE Stop: 11/21/19 00:14 Last Admin: 11/21/19 00:37 Dose: 240 mg Sodium Chloride (Normal Saline) 1,000 mls @ 999 mls/hr IV ASDIRECTED [facility] Last Infusion: 11/20/19 15:07 Dose: 999 mls/hr Ceftriaxone Sodium 1 gm/ (Sodium Chloride) 100 mls @ 200 mls/hr IV ONETIME ONE Stop: 11/20/19 14:43 Last Admin: 11/20/19 14:29 Dose: 200 mls/hr Magnesium Sulfate 2 gm/ Premix 50 mls @ 25 mls/hr IV ONETIME ONE Stop: 11/20/19 16:20 Last Admin: 11/20/19 15:14 Dose: 25 mls/hr Lactated Ringer's (Ringers, Lactated) 1,000 mls @ 100 mls/hr IV ASDIRECTED [facility] Last Infusion: 11/20/19 17:10 Dose: 999 mls/hr Lactated Ringer's (Ringers, Lactated) 1,000 mls @ 125 mls/hr IV ASDIRECTED [facility] Last Admin: 11/20/19 18:11 Dose: 125 mls/hr Cefepime HCl 2 gm/ Sodium (Chloride) 50 mls @ 100 mls/hr IV DAILY [facility] Last Admin: 11/20/19 17:56 Dose: Not Given Cefepime HCl 2 gm/ Premix 50 mls @ 100 mls/hr IV ONETIME ONE Stop: 11/20/19 18:24 Last Admin: 11/20/19 18:11 Dose: 100 mls/hr Lactated Ringer's (Ringers, Lactated) 500 mls @ 999 mls/hr IV ONETIME ONE Stop: 11/21/19 00:39 Last Admin: 11/21/19 00:42 Dose: 999 mls/hr Lactated Ringer's (Ringers, Lactated) 1,000 mls @ 150 mls/hr IV ASDIRECTED [facility] Last Admin: 11/22/19 04:08 Dose: 150 mls/hr Magnesium Sulfate/Dextrose 1 (gm/ Premix) 100 mls @ 100 mls/hr IV Q1H [facility] Stop: 11/21/19 04:14 Last Admin: 11/21/19 05:00 Dose: 100 mls/hr Cefepime HCl 2 gm/ Premix 50 mls @ 100 mls/hr IV Q12H [facility] Last Admin: 11/22/19 21:30 Dose: 100 mls/hr Magnesium Sulfate 2 gm/ Premix 50 mls @ 25 mls/hr IV ONETIME ONE Stop: 11/22/19 11:08 Last Admin: 11/22/19 10:13 Dose: 25 mls/hr Metoprolol Tartrate (Lopressor) 50 mg PO ONETIME ONE Stop: 11/20/19 17:17 Last Admin: 11/20/19 17:24 Dose: 50 mg Metoprolol Tartrate (Lopressor) 50 mg PO ONETIME ONE Stop: 11/21/19 00:14 Last Admin: 11/21/19 00:43 Dose: 50 mg Morphine Sulfate (Morphine) 2 mg IVPUSH Q4H PRN PRN Reason: Pain (severe 7-10) Stop: 11/21/19 17:43 - Exam Quality Assessment: Reports: DVT Prophylaxis General: Reports: Alert, Oriented, Cooperative, No Acute Distress HEENT: Reports: Pupils Equal, Pupils Reactive, Mucous Membr. Moist/[place] Neck: Reports: Supple Lungs: Reports: Clear to Auscultation, Normal Respiratory Effort Cardiovascular: Reports: Irregular Rhythm GI/Abdominal Exam: Normal Bowel Sounds, Soft, Non-Tender, No Distention (Male) Exam: Deferred Rectal (Males) Exam: Deferred Back Exam: Reports: Normal Inspection, Full Range of Motion Extremities: Normal Inspection, Normal Range of Motion, Non-Tender, No Pedal Edema, Normal Capillary Refill Skin: Reports: Warm, Dry, Intact Neurological: Reports: No New Focal Deficit Psy/Mental Status: Reports: Alert, Normal Affect, Normal Mood
[2019-11-23] MEDS: Allopurinol 100 MG Tab PO SCH (10:08)
[2019-11-23] MEDS: Apixaban 5 MG Tab PO SCH (10:08)
[2019-11-23] MEDS: Diltiazem 240 MG Cap.ER PO SCH (10:09)
[2019-11-23] MEDS: Metoprolol Tartrate 25 MG Tab PO SCH (10:09)
== END 2019-11-23 13:53 | disposition home or self-care (01) | DRG 720 ==
LOC: JD.ED 11:46 → JD.MS 17:41 → JD.ICU 23:44 → JD.MS 23:45
PROVIDERS: ADMIT Internal Medicine; ATTEND Internal Medicine
DX: A41.51 Sepsis due to Escherichia coli [E. coli] (principal); N39.0 Urinary tract infection, site not specified; Z68.43 Body mass index [BMI] 50.0-59.9, adult; E66.01 Morbid (severe) obesity due to excess calories; Z96.0 Presence of urogenital implants; N20.0 Calculus of kidney; G47.33 Obstructive sleep apnea (adult) (pediatric); I11.0 Hypertensive heart disease with heart failure; I50.9 Heart failure, unspecified; M10.9 Gout, unspecified; I48.20 Chronic atrial fibrillation, unspecified; Z88.8 Allergy status to other drugs, medicaments and biological substances; Z79.899 Other long term (current) drug therapy; Z20.828 Contact with and (suspected) exposure to other viral communicable diseases
CPT/HCPCS: 36415; 71045; 71045-26; 74176; 74176-26; 80048; 80053; 81001; 82728; 82962; 83605; 83615; 83735; 83880; 84100; 85025; 85379; 85610; 85730; 86140; 87040; 87077; 87086; 87088; 87186; 93005; 96361; 96365; 96366; 96367; 96375; 99222; 99232; 99239; 99284; 99285-25; A9270-GY; J0692; J0696; J3475; J3490; J7030; J7050; J7120; U0002

== ENCOUNTER 2023-12-19 14:52 | Emergency (ER) | payer BC, MEDICARE ==
[2023-12-19] MEDS ORDERED: Sodium Chloride 0.9% 10 ML Syringe FLUSH PRN (16:41)
[2023-12-19 16:44] LABS: APPEARANCE,URINE CLEAR (Clear); BILIRUBIN,URINE 1+ (Negative); COLOR,URINE DARK YELLOW (Yellow); GLUCOSE,URINE NEGATIVE (Negative); KETONES,URINE TRACE (Negative); LEUKOCYTE ESTERASE,URINE TRACE (Negative); NITRITE,URINE NEGATIVE (Negative); OCCULT BLOOD,URINE TRACE-INTACT (Negative); PROTEIN,URINE 1+ (Negative); UROBILINOGEN,URINE 0.2 (0.2-1.0)
[2023-12-19 16:56] LABS: BASOPHILS PERCENT AUTO 0.2 % (0.0-1.0); EOSINOPHILS ABSOLUTE AUTO 0.3 K/mm3 (0.0-0.4); EOSINOPHILS PERCENT AUTO 1.9 % (0.0-6.0); HEMATOCRIT 43.2 % (42.0-52.0); HEMOGLOBIN 15.2 gm/dl (14.0-18.0); IMMATURE GRAN PERCENT AUTO 0.7 % (0.0-0.4); LYMPHOCYTES ABSOLUTE AUTO 2.2 K/mm3 (1.0-4.8); LYMPHOCYTES PERCENT AUTO 16.2 % (24.0-44.0); MEAN CORPUSCULAR HEMOGLOBIN 36.2 pg (28.0-32.0); MEAN CORPUSCULAR HGB CONC 35.2 g/dl (32.0-36.0); MEAN CORPUSCULAR VOLUME 102.9 fl (83.0-99.0); MEAN PLATELET VOLUME 9.8 fl (9.4-12.4); MONOCYTES ABSOLUTE AUTO 0.9 K/mm3 (0.0-0.8); MONOCYTES PERCENT AUTO 6.6 % (0.0-8.0); NEUTROPHILS ABSOLUTE AUTO 10.3 K/mm3 (1.8-7.7); NEUTROPHILS PERCENT AUTO 74.4 % (41.0-71.0); PLATELET COUNT,PLT 291 K/mm3 (150-400)
[2023-12-19 16:59] LABS: BACTERIA,URINE FEW /hpf (FEW); MUCUS,URINE MODERATE /hpf (FEW)
[2023-12-19] MEDS: Iopamidol 612 MG/ML 100 ML Bottle IVPUSH ONE (17:02)
[2023-12-19] MEDS: Sodium Chloride 0.9% 45 ML IV SCH (17:02)
[2023-12-19] MEDS: Sodium Chloride 0.9% 10 ML Syringe FLUSH PRN (17:02)
[2023-12-19 17:17] LABS: A/G RATIO 0.8 (1-2); ALANINE AMINOTRANSFERASE,ALT 30 U/L (16-63); ALBUMIN 3.2 g/dl (3.4-5.0); ALKALINE PHOSPHATASE 73 U/L (46-116); ANION GAP 12.5 (5-15); ASPARTATE AMNIOTRANSFERASE,AST 21 U/L (15-37); BILIRUBIN TOTAL 0.7 mg/dL (0.2-1.0); BLOOD UREA NITROGEN,BUN 12 mg/dL (7-18); BUN/CREATININE RATIO 9.2 (14-18); CALCIUM 9.1 mg/dL (8.5-10.1); CARBON DIOXIDE,CO2 26 mEq/L (21-32); CHLORIDE,CL 101 mEq/L (98-107); CREATININE 1.3 mg/dL (0.7-1.3); ESTIMATED GFR 61 mL/min (>60); GLUCOSE RANDOM 100 mg/dL (70-99); LIPASE 38 U/L (16-77); POTASSIUM,K 3.5 mEq/L (3.5-5.1); PROTEIN TOTAL,TP 7.3 g/dl (6.4-8.2); SODIUM,NA 136 mEq/L (136-145); TROPONIN I HIGH SENSITIVITY 5 pg/mL (<=76)
[2023-12-19] MEDS: Sodium Chloride 0.9% 1,000 ML IV STA (17:44)
[2023-12-19] MEDS: Ondansetron 4 MG/2 ML SDV IVPUSH ONE (17:45)
[2023-12-19] MEDS: Pantoprazole 40 MG Vial IVPUSH ONE (17:45)
== END 2023-12-19 18:46 | disposition home or self-care (01) ==
LOC: JD.ED 14:52
DX: A08.4 Viral intestinal infection, unspecified (principal); I11.0 Hypertensive heart disease with heart failure; I50.9 Heart failure, unspecified; E66.9 Obesity, unspecified; Z88.8 Allergy status to other drugs, medicaments and biological substances; Z79.899 Other long term (current) drug therapy
CPT/HCPCS: 36415; 74177; 80053; 81001; 83690; 84484; 85025; 96361; 96374; 96375; 99284; C9113; J2405; J3490; J7030; Q9967